=== PATIENT | female | born 1985 | race Caucasian/White ===

== ENCOUNTER 2016-05-14 14:18 | Emergency (ER) | payer OTHER ==
[~2016-05-14] VITALS: Ht 165.1 cm; Wt 76.2 kg
[~2016-05-14 14:18] MED LIST: AC500T PO; ACET-819 PO; AZIT-21 PO; AZTH250C; BENZ200C25 PO; DIPH25TA82; FLUO10CA19 PO; GUAN1TAB21; MECL-124 PO; MINO50CA3; OMEP-10 PO; PREN1TAB39 PO
[2016-05-14] MEDS ORDERED: LIDOCAINE/EPI 1%-1:100,000 (XYLOCAINE) 20ML INJ ONE (15:00)
[2016-05-14] MEDS ORDERED: TETANUS,DIPTH,PERTUSS P/F (BOOSTRIX) 0.5 ML VIAL IM ONE (15:00)
--- NOTE | 2016-05-14 16:11 | ED General ---
ED General Template History Present Illness This pleasant 30-year-old young lady presents to the emergency room with a left ankle laceration. She caught her foot on the bottom corner of a freezer door which pushed the top of her shoe down and lacerated the posterior lateral edge of her foot/ankle. Laceration is fairly deep through the subcutaneous tissue and fascia layer. Bleeding is controlled by the time of arrival. Initial Time/Exam Patient 14:40 Allergy/Medications Allergies: Coded Allergies: Dextrose (Unverified Allergy, Mild, 07/27/08) Cefotaxime (Verified Allergy, Unknown, 08/26/06) Azithromycin (Zithromax Tab) 250 Mg Tab #6 0 PO Z-ASHISH 2 Tabs 1st day (now), 1 Tab daily Prescribed by: FELIPE LOWRY on 03/20/14346 Benzonatate (Benzonatate) 200 Mg Capsule #14 1 EACH PO TID PRN Prescribed by: FELIPE LOWRY on 03/20/14346 Fluoxetine Hcl (Fluoxetine Hcl) 10 Mg Capsule Unknown Dose PO DAILY (Reported) Review Of Systems Review of systems is negative except for skin and neurologic systems. Tendon function intact. There is a 7 cm laceration on the posterior lateral edge of the foot/ankle just lateral to the Achilles tendon. There is an area of numbness just adjacent to the laceration. PMH Past Medical Hx No contributing past medical history Physicial Exam Gen.: Alert and oriented, no acute distress Respiratory: No respiratory distress Skin: 7 cm laceration through the subcutaneous and fascial layers on the posterior lateral left foot/ankle Musculoskeletal: Achilles tendon appears in intact with normal function. Vascular: Capillary refill of the distal foot normal. Neuro: Small patch of insensate skin near the laceration site. Distal sensation intact. Laceration Repair : Other Wound Location Posterior lateral left foot/ankle just lateral to the Achilles tendon Wound's Depth, Shape: linear, sub Q (and fascia) Wound Explored: clean Irrigated w/ Saline (ccs): 500 Betadine Prep?: Yes Anesthesia: Lidocaine w/ Epi Volume Anesthetic (ccs): 8 Suture: Prolene, Vicryl Suture Size: 4-0 Number of Sutures: 17 Layer Closure?: 3 Number Deep Layer Sutures: 6 Sterile Dressing Applied?: Yes Progress Skin was cleaned with alcohol. Wound was anesthetized with 8 mL of lidocaine with epinephrine. Wound was irrigated with 500 mL normal saline under pressure with an irrigation shield. Betadine prep was applied. Deep fascial layer of tissue was approximated with 3 sutures of 4-0 Vicryl. The subcutaneous layer of tissue was approximated with an additional 3 sutures of 4-0 Vicryl. The 7 cm skin laceration was approximated with 11 sutures of 4-0 Prolene in an interrupted fashion. Patient tolerated the procedure very well. Progress/Results/Core Measures Results/Orders My Orders Orders-LÓPEZ BOURNE MD Lidocaine/Epi 1% 1:100,000 (Xylocaine /E (05/14/16 15:00) Dipht,Pertuss(Acell),Tet Adult (Boostrix (05/14/16 15:00) Sulfamethoxazole/Trimet Ds Tab (Bactrim (05/14/16 16:15) Medications Given in ED Current Medications Medications Dose Ordered Sig/Morris Route Start Time Stop Time Status Last Admin Dose Admin Diphtheria/ Tetanus/Acell Pertussis 0.5 ml ONCE ONCE IM 05/14/16 15:00 05/14/16 15:01 DC 05/14/16 15:08 0.5 ML Lidocaine/ Epinephrine 20 ml ONCE ONCE INJ 05/14/16 15:00 05/14/16 15:01 DC 05/14/16 15:40 8 ML Trimethoprim/ Sulfamethoxazole 2 ea ONCE ONCE PO 05/14/16 16:15 05/14/16 16:16 DC 05/14/16 16:23 2 EA Vital Signs/I&O Vital Sign - Last 12Hours 05/14/16 05/14/16 14:32 16:26 Temp 99.7 99.7 Pulse 110 110 Resp 18 18 B/P 124/77 Pulse Ox 100 100 O2 Delivery Room Air Blood Pressure Mean: 93 Progress Note : Progress Note See procedure note for laceration repair. Patient was given Bactrim DS quantity 2 for infection prophylaxis. Sterile dressing was applied with antibiotic ointment. Occupational health paperwork was completed. I suggested patient not work for 2 days to allow initial healing since her job requires being on foot and walking. Departure Impression Impression: Primary Impression: Laceration of ankle, complicated Qualified Code: S91.012A - Laceration without foreign body, left ankle, initial encounter Disposition: HOME, SELF-CARE Condition: Improved Departure-Patient Inst. Decision time for Depature: 15:30 Referrals: [facility] (PCP/Family) Primary Care Physician Patient Instructions: Laceration Repair With Stitches (DC) Add. Discharge Instructions: Change the dressing daily. For the first couple of days apply antibiotic ointment to prevent the wound from sticking. You may use the Telfa nonstick dressing over the wound followed by gauze and Michael wrap. Elevate the wound to the level of your heart as much as possible for the first 2 days. Monitor the wound for signs of infection such as increasing swelling, increasing redness, increasing pain, fever, and puslike drainage. Return to care promptly if you notice these symptoms. You may use ibuprofen up to 600 mg every 6 hours as needed for pain. Add Tylenol up to 1000 g every 6 hours as needed for additional pain relief. Return occupational health or the ER in 10 days to have the sutures removed. Keep the wound covered at work. Avoid direct mechanical irritation of the sutures. You may shower as usual but avoid submersion until sutures are out. Do not scrub directly over the sutures. You may return to the emergency room to have the sutures removed. All discharge instructions reviewed with patient and/or family. Voiced understanding. LÓPEZ BOURNE MD May 14, 2016 16:11
[2016-05-14] MEDS ORDERED: TRIM/SULFAMETH 160/800 (SEPTRA DS) TAB PO ONE (16:15)
[2016-05-14 16:26] VITALS: BP 120/76
== END 2016-05-14 16:26 | disposition home or self-care (01) ==
LOC: EDUNIT# 14:18 → ER 14:21
DX: S91.012A Laceration without foreign body, left ankle, initial encounter (principal); W22.09XA Striking against other stationary object, initial encounter; Y92.009 Unspecified place in unspecified non-institutional (private) residence as the place of occurrence of the external cause; Y99.8 Other external cause status
CPT/HCPCS: 12032; 90471; 90715

== ENCOUNTER → 2016-10-07 | Outpatient (CLI) | payer MEDICAID ==
--- NOTE | 2016-10-07 11:03 | Diagnostic Imaging Report ---
First trimester OB ultrasound. INDICATION: Dating. FINDINGS: There is a normal-appearing single intrauterine . An embryo is seen with cardiac activity at 158 beats per minute. The crown-rump length is at 12 weeks and 6 days. FLO is 04/15/17. IMPRESSION: Live single intrauterine . Dictated by: Dictated on workstation # [id number]
== END ==
LOC: RAD 10:30
PROVIDERS: ATTEND Family Medicine
DX: Z36 Encounter for antenatal screening of mother (principal); Z3A.12 12 weeks gestation of pregnancy
CPT/HCPCS: 76801

== ENCOUNTER → 2016-11-20 | Outpatient (CLI) | payer MEDICAID ==
--- NOTE | 2016-11-21 11:48 | Diagnostic Imaging Report ---
INDICATION: survey. TECHNIQUE: Multiple real-time grayscale images were obtained over the gravid uterus. COMPARISON: 10/07/2016 FINDINGS: The heart rate is 136 beats per minute. The placenta is posterior. No placenta previa. The cervix is 4.4 cm in length and is closed. The lateral ventricles appear normal in size. The cerebellum and cisterna magna are not well seen. The bladder is not seen. The four-chamber view appears unremarkable. The stomach and cord insertion and the kidneys appear unremarkable. The spine is not well seen due to position. The lower spine is well seen however. Biometrical measurements are as follows: Biparietal 4.34 cm, age 19 weeks 1 days. Head circumference 16.43 cm, age 19 weeks 2 days. Abdominal circumference 14.52 cm, age 19 weeks 6 days. Femur length 2.9 cm, age 19 weeks 2 days. Sonographic estimate age: 19 weeks 3 days. Sonographic estimated date of delivery: 04/13/17. Estimated Weight: 269 gm (+/- 43 gm). LMP percentile: 67%. heart rate: 136 beats per minute. number: 1 of 1. IMPRESSION: Incomplete survey due to position with reevaluation of the cerebellum and cisterna magna, urinary bladder, three-vessel cord, and the spine is recommended within 2 weeks. Dictated by: Dictated on workstation # [id number]
== END ==
LOC: RAD 17:30
PROVIDERS: ATTEND Family Medicine
DX: Z36 Encounter for antenatal screening of mother; Z3A.00 Weeks of gestation of pregnancy not specified
CPT/HCPCS: 76805

== ENCOUNTER → 2016-12-03 | Outpatient (CLI) | payer MEDICAID ==
--- NOTE | 2016-12-04 08:36 | Diagnostic Imaging Report ---
INDICATION: Followup. COMPARISON: 11/20/2016. TECHNIQUE: Multiple Real-time grayscale images were obtained over the gravid uterus. FINDINGS: The cervix is nondilated measuring 3.8 cm. The devlin gestation is in breech position. The amniotic fluid volume is within normal limits. The posterior placenta is low lying without abruption. The intracranial structures on followup have an unremarkable appearance. The three-vessel cord is confirmed; however, its insertion is not well visualized. The spine has an unremarkable appearance at followup. The urinary bladder is now identified. IMPRESSION: Breech positioned devlin viable IUP. Nondilated 3.8 cm length cervix. Low-lying placenta which is 2 cm separable from the os without alexsandra previa. No abruption. The anatomical structures not evaluated on the prior exam are shown to be unremarkable today; however, the 3 vessel cord insertion could not be clearly defined on a technical basis. Dictated by: Dictated on workstation # [id number]
== END ==
LOC: RAD 16:38
PROVIDERS: ATTEND Family Medicine
DX: Z3A.00 Weeks of gestation of pregnancy not specified; O32.1XX0 Maternal care for breech presentation, not applicable or unspecified
CPT/HCPCS: 76816

== ENCOUNTER 2017-01-12 19:07 | Emergency (ER) | payer MEDICAID ==
[~2017-01-12] VITALS: Ht 162.6 cm; Wt 81.2 kg
--- OUTSIDE RECORDS SUMMARY | 2017-01-12 19:23 | XMS REPORT ---
Author Author SHIRA MENDEZ [facility] Address [address] [place] [address] Care Team Providers Care Fabric Worker Leader Name Role Phone SHIRA MENDEZ Unavailable PROBLEMS Type Condition ICD9-CM Code [id number] Code Onset Dates Condition Status SNOMED Code Problem Anxiety F41.9 Active 30117990 Problem Seasonal allergic rhinitis due to pollen J30.1 Active 79320152 Problem Prediabetes R73.09 Active 9719165 Problem Mixed hyperlipidemia E78.2 Active 795177681 ALLERGIES Unknown Allergies SOCIAL HISTORY No smoking Hx information available PLAN OF CARE VITAL SIGNS MEDICATIONS Unknown Medications RESULTS Name Result Date Reference Range LIPID PANEL 2016-03-28 Cholesterol, Total 155 100-199 Triglycerides 38 0-149 HDL Cholesterol 65 >39 VLDL Cholesterol Hill 8 5-40 LDL Cholesterol Calc 82 0-99 Comment: PROCEDURES Procedure Date Ordered Related Diagnosis Body Site LIPID PANEL Mar 28, 2016 VENDMITRIY, ROUTINE* Mar 28, 2016 IMMUNIZATIONS No Known Immunizations
--- OUTSIDE RECORDS SUMMARY | 2017-01-12 19:23 | XMS REPORT ---
Author Author SHIRA MENDEZ [facility] eClinicalWorks Address Unknown Phone Unavailable Care Team Providers Care Rod Buster Name Role Phone SHIRA MENDEZ CP Unavailable Allergies No Known Allergies Problems Problem Type Condition Code Onset Dates Condition Status Problem Alcohol dependence F10.20 Active Problem Mixed hyperlipidemia E78.2 Active Problem Wheezing R06.2 Active Problem Pre-diabetes R73.09 Active Problem Attention deficit disorder without hyperactivity F90.0 Active Problem Generalized anxiety disorder F41.1 Active Problem Depressive disorder F32.9 Active Problem Panic disorder without agoraphobia F41.0 Active Medications No Known Medications Results No Known Results Summary Purpose eClinicalWorks Submission
--- OUTSIDE RECORDS SUMMARY | 2017-01-12 19:23 | XMS REPORT ---
Author KEERTHI Cisneros [facility] eClinicalWorks Address Unknown Phone Unavailable Care Team Providers Care Slackline Operator Name Role Phone KEERTHI BENNETT CP Unavailable Allergies, Adverse Reactions, Alerts Substance Reaction Event Type Ranitidine HCl Info Not Available Drug Allergy Minocycline HCl Info Not Available Drug Allergy Claforan Info Not Available Drug Allergy Problems Problem Type Condition Code Onset Dates Condition Status Problem Overweight 278.02 Active Problem Counseling on other sexually transmitted diseases V65.45 Active Problem Dietary surveillance and counseling V65.3 Active Problem Wheezing 786.07 Active Problem Depressive disorder, not elsewhere classified 311 Active Problem Leukorrhea, not specified as infective 623.5 Active Problem Generalized anxiety disorder 300.02 Active Problem Unspecified breast screening V76.10 Active Problem Panic disorder without agoraphobia 300.01 Active Problem Attention deficit disorder of childhood with hyperactivity 314.01 Active Assessment Bronchitis J40 Active Problem Screening for unspecified malignant neoplasm V76.9 Active Problem Other general counseling and advice for contraceptive management V25.09 Active Problem Unspecified contraceptive management V25.9 Active Problem Other and unspecified alcohol dependence, unspecified drunkenness 303.90 Active Problem Other malaise and fatigue 780.79 Active Problem Routine gynecological examination V72.31 Active Problem Screening examination for venereal disease V74.5 Active Medications Medication Code System Code Instructions Start Date End Date Status Dosage Doxycycline Hyclate [facility] [address]-37 100 MG Orally every 12 hrs Dec 25, 2014 Jan 04, 2015 1 tablet Sudafed [facility] [address]-25 30 MG Orally every 6 hrs Dec 25, 2014 1 tablet as needed Promethazine-Codeine [facility] [address]-04 6.25-10 MG/5ML Orally q 4h Dec 19, 2014 10 ml Procedures Procedure Coding System Code Date Office Visit, Est Pt., Level 3 CPT-4 39385 Dec 25, 2014 Vital Signs Date/Time: Dec 25, 2014 Temperature 97.3 F Weight 173.3 lbs Height 64 in BMI 29.74 Index Blood Pressure Diastolic 76 mmHg Blood Pressure Systolic 122 mmHg Cardiac Monitoring Heart Rate 96 bpm Results No Known Results Summary Purpose eClinicalWorks Submission
--- OUTSIDE RECORDS SUMMARY | 2017-01-12 19:24 | XMS REPORT ---
Author Author SHIRA MENDEZ Organization eClinical[employer] Address Unknown Phone Unavailable Care Team Providers Care Public Health Staff Nurse Name Role Phone SHIRA MENDEZ CP Unavailable Allergies No Known Allergies Problems Problem Type Condition Code Onset Dates Condition Status Problem Generalized anxiety disorder F41.1 Active Problem Panic disorder without agoraphobia F41.0 Active Problem Attention deficit disorder without hyperactivity F90.0 Active Problem Alcohol dependence F10.20 Active Problem Unprotected sex Z72.51 Active Problem Prediabetes R73.09 Active Problem Staph infection B95.8 Active Problem Wheezing R06.2 Active Problem Depressive disorder F32.9 Active Problem 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
--- OUTSIDE RECORDS SUMMARY | 2017-01-12 19:24 | XMS REPORT ---
Author Author SHIRA MENDEZ [facility] Address [address] [place] [address] Care Team Providers Care Auto Parker Name Role Phone SHIRA MENDEZ Unavailable PROBLEMS Type Condition ICD9-CM Code [id number] Code Onset Dates Condition Status SNOMED Code Problem Depressive disorder F32.9 Active 98464666 Problem Mixed hyperlipidemia E78.2 Active 640534697 Problem Wheezing R06.2 Active 11311400 Problem Alcohol dependence F10.20 Active 49882689 Problem Generalized anxiety disorder F41.1 Active 623970292 Problem Attention deficit disorder without hyperactivity F90.0 Active 94429043 Problem Panic disorder without agoraphobia F41.0 Active 17840685 Problem Chronic infection B99.9 Active 665691788 Problem Klebsiella infect B96.1 Active 306733740 Problem Prediabetes R73.09 Active 7160754 Problem 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
--- OUTSIDE RECORDS SUMMARY | 2017-01-12 19:24 | XMS REPORT ---
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, drug or chemical induced, 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 Active 141458933 Problem Staph infection B95.8 Active Problem Unprotected sex Z72.51 Active 6909218 Problem Alcohol dependence F10.20 Active 57711507 Problem Generalized anxiety disorder F41.1 Active 868829179 Problem Attention deficit disorder without hyperactivity F90.0 Active 26481742 Assessment Allergic rhinitis, unspecified allergic rhinitis trigger, unspecified rhinitis seasonality J30.9 Oct, Active 22815920 Problem Panic disorder without agoraphobia F41.0 Active 55404839 ALLERGIES Substance Reaction Event Type Date Status Minocycline HCl Unknown Drug Allergy Oct, Active Claforan Unknown Drug Allergy Oct, Active SOCIAL HISTORY No smoking Hx information available PLAN OF CARE VITAL SIGNS Height 64 in 2015-11-22 Weight 160.5 lbs 2015-11-22 Heart Rate 96 bpm 2015-11-22 Respiratory Rate 18 2015-11-22 BMI 27.55 kg/m2 2015-11-22 Blood pressure systolic 118 mmHg 2015-11-22 Blood pressure diastolic 74 mmHg 2015-11-22 MEDICATIONS Medication Instructions Dosage Frequency Start Date End Date Duration Status PredniSONE 20 mg Orally Once a day 2 tablets 24h Oct, Oct, 05 days Active Triamcinolone Acetonide 0.1 % Externally Twice a day 1 application to affected area 12h Oct, Active Diethylpropion HCl ER 75 MG Orally Once a day 1 tablet 24h Active RESULTS No Results PROCEDURES Procedure Date Ordered Related Diagnosis Body Site Office Visit, Est Pt., Level 3 Nov 22, 2015 IMMUNIZATIONS No Known Immunizations
--- OUTSIDE RECORDS SUMMARY | 2017-01-12 19:24 | XMS REPORT ---
Author Author PALOMA VELIZ [facility] eClinicalWorks Address Unknown Phone Unavailable Care Team Providers Care Hand Roller Name Role Phone PALOMA VELIZ CP Unavailable Allergies, Adverse Reactions, Alerts Substance [...] of childhood with hyperactivity 314.01 Active Assessment Sore throat J02.9 Active Problem Screening for unspecified malignant neoplasm V76.9 Active Assessment Acute streptococcal pharyngitis J02.0 Active Problem Other general counseling and advice for contraceptive management V25.09 Active Problem Unspecified contraceptive management V25.9 Active Problem Other and unspecified alcohol dependence, unspecified drunkenness 303.90 Active Problem Other malaise and fatigue 780.79 Active Problem Routine gynecological examination V72.31 Active Problem Screening examination for venereal disease V74.5 Active Medications Medication Code System Code Instructions Start Date End Date Status Dosage Ibuprofen [facility] [address]-98 600 MG Orally Three times a day 1 tablet Penicillin V Potassium [facility] [address]-66 500 MG Orally 2 times a day MarMar 13, 2015 1 tablet Procedures Procedure Coding System Code Date Office Visit, Est Pt., Level 3 CPT-4 53808 Mar 03, 2015 STREP A ASSAY W/OPTIC CPT-4 32876 Mar 03, 2015 Vital Signs Date/Time: Mar 03, 2015 Temperature 99.8 F Weight 169.0 lbs Height 64 in BMI 29.01 Index Blood Pressure Diastolic 74 mmHg Blood Pressure Systolic 110 mmHg Cardiac Monitoring Heart Rate 112 bpm Results Name Result Date Reference Range Unit Abnormality Flag STREP A (IN HOUSE) ----STREP A positive [id number] ----Control + [id number] ----Lot # [id number] ----Exp date 20150303 Summary Purpose eClinicalWorks Submission
--- OUTSIDE RECORDS SUMMARY | 2017-01-12 19:24 | XMS REPORT ---
Author Author SHIRA MENDEZ Organization eClinicalWorks Address Unknown Phone Unavailable Care Team Providers Care Teaching Dietitian Name Role Phone SHIRA MENDEZ CP Unavailable [...]
--- OUTSIDE RECORDS SUMMARY | 2017-01-12 19:24 | XMS REPORT ---
Author Author SHIRA MENDEZ [facility] Address [address] [place] [address] Care Team Providers Care Drafter Castings Name Role Phone VANESSA SHIRA Unavailable PROBLEMS Type Condition ICD9-CM Code [id number] Code Onset Dates Condition Status SNOMED Code Problem Anxiety F41.9 Active 40340915 Problem Seasonal allergic rhinitis due to pollen J30.1 Active 78370285 Problem Prediabetes R73.09 Active 2754128 Problem Mixed hyperlipidemia E78.2 Active 431800027 ALLERGIES Substance Reaction Event Type Date Status Minocycline HCl Unknown Drug Allergy Apr, Active Claforan Unknown Drug Allergy Apr, Active SOCIAL HISTORY Never Assessed PLAN OF CARE Activity Details Follow Up 3-4 weeks Reason:[facility] VITAL SIGNS Height 64 in 2016-05-20 Weight 168 lbs 2016-05-20 Temperature 99.4 degrees Fahrenheit 2016-05-20 Heart Rate 70 bpm 2016-05-20 Respiratory Rate 20 2016-05-20 BMI 28.83 kg/m2 2016-05-20 Blood pressure systolic 132 mmHg 2016-05-20 Blood pressure diastolic 70 mmHg 2016-05-20 MEDICATIONS Medication Instructions Dosage Frequency Start Date End Date Duration Status Ibuprofen 600 MG Orally Three times a day 1 tablet 8h Active Fluoxetine HCl 10 mg Orally Once a day 1 capsule in the morning 24h Apr 30 day(s) Active RESULTS Name Result Date Reference Range TEST, URINE (IN HOUSE) 2016-05-20 RESULTS negative Lot # [id number] Control + Exp date 06/17 Xray : Abdomen 2v (Upright, KUB) - IN HOUSE 2016-05-20 PROCEDURES Procedure Date Ordered Result Body Site EKG, TRACING (IN-HOUSE) 2016-05-20 UNREMARKABLE URINE TEST May 20, 2016 ELECTROCARDIOGRAM, TRACING May 20, 2016 X-RAY EXAM OF ABDOMEN May 20, 2016 IMMUNIZATIONS No Known Immunizations MEDICAL (GENERAL) HISTORY Type Description Date Medical History attention deficit hyperactivity disorder Medical History Tourette's syndrome Medical History borderline personality disorder Medical History Depressive disorder Medical History Panic disorder without agoraphobia Medical History DUE APR 2017 Surgical History sinus surgery Surgical History orthopedic surgery (L great toe) Hospitalization History surgeries
--- OUTSIDE RECORDS SUMMARY | 2017-01-12 19:24 | XMS REPORT ---
Author Author BRAD ROSADO [facility] eClinicalWorks Address Unknown Phone Unavailable Care Team Providers Care Tea Blender Name Role Phone BRAD ROSADO Unavailable Allergies, Adverse Reactions, Alerts Substance Reaction Event Type Ranitidine HCl Info Not Available Drug Allergy Minocycline HCl Info Not Available Drug Allergy Claforan Info Not Available Drug Allergy Problems Problem Type Condition Code Onset Dates Condition Status Assessment Family history of diabetes mellitus Z83.3 Active Assessment Well woman exam Z01.419 Active Assessment BMI 29.0-29.9,adult Z68.29 Active Problem Depressive disorder F32.9 Active Problem Panic disorder without agoraphobia F41.0 Active Problem Wheezing R06.2 Active Problem Alcohol dependence F10.20 Active Assessment Encounter for screening for malignant neoplasm of cervix Z12.4 Active Problem Attention deficit disorder without hyperactivity F90.0 Active Problem Generalized anxiety disorder F41.1 Active Assessment Anxiety disorder, unspecified F41.9 Active Assessment Fibrocystic breast, left N60.12 Active Assessment Unprotected sexual intercourse Z72.51 Active Assessment Fibrocystic breast, right N60.11 Active Assessment Encounter for counseling regarding contraception Z30.9 Active Assessment Vaginal discharge N89.8 Active Medications No Known Medications Procedures Procedure Coding System Code Date CHORIONIC GONADOTROPIN TEST CPT-4 44235 Mar 14, 2015 Preventive Care Est Pt. Age 18-39 CPT-4 43152 Mar 14, 2015 SPECIMEN HANDLING CPT-4 78350 Mar 14, 2015 VENIPUNCT, ROUTINE* CPT-4 97585 Mar 14, 2015 Vital Signs Date/Time: Mar 14, 2015 Temperature 97.4 F Weight 172.3 lbs Height 64 in BMI 29.57 Index Blood Pressure Diastolic 74 mmHg Blood Pressure Systolic 117 mmHg Cardiac Monitoring Heart Rate 90 bpm Results Name Result Date Reference Range Unit Abnormality Flag PDF Report ----PDF Report1 LCLS [id number] ROUTINE VENIPUNCTURE HCG, QUANTITATIVE ----hCG,Beta Subunit,Qnt,Serum <1 [id number] mIU/mL Summary Purpose eClinicalWorks Submission
--- OUTSIDE RECORDS SUMMARY | 2017-01-12 19:24 | XMS REPORT ---
Author Author PALOMA VELIZ [facility] eClinicalWorks Address Unknown Phone Unavailable Care Team Providers Care Slip Injector And Applicator Name Role Phone PALOMA VELIZ CP Unavailable Allergies, Adverse Reactions, Alerts Substance Reaction Event Type Ranitidine HCl Info Not Available Drug Allergy Minocycline HCl Info Not Available Drug Allergy Claforan Info Not Available Drug Allergy Problems Problem Type Condition Code Onset Dates Condition Status Problem Depressive disorder F32.9 Active Problem Panic disorder without agoraphobia F41.0 Active Problem Wheezing R06.2 Active Problem Alcohol dependence F10.20 Active Assessment Pharyngitis J02.9 Active Problem Attention deficit disorder without hyperactivity F90.0 Active Problem Generalized anxiety disorder F41.1 Active Medications Medication Code System Code Instructions Start Date End Date Status Dosage Sprintec 28 [facility] [address]-91 0.25-35 MG-MCG Orally Once a day Mar 15, 2015 1 tablet Augmentin [facility] [address]-06 875-125 MG Orally every 12 hrs Mar 17, 2015 Mar 27, 2015 1 tablet Procedures Procedure Coding System Code Date Office Visit, Est Pt., Level 3 CPT-4 74991 Mar 17, 2015 STREP A ASSAY W/OPTIC CPT-4 28827 Mar 17, 2015 Vital Signs Date/Time: Mar 17, 2015 Temperature 98.8 F Weight 169.2 lbs Height 64 in BMI 29.04 Index Blood Pressure Diastolic 78 mmHg Blood Pressure Systolic 108 mmHg Cardiac Monitoring Heart Rate 102 bpm Results Name Result Date Reference Range Unit Abnormality Flag STREP A (IN HOUSE) ----STREP A positive [id number] ----Control + [id number] ----Lot # [id number] ----Exp date [id number] Summary Purpose eClinicalWorks Submission
--- OUTSIDE RECORDS SUMMARY | 2017-01-12 19:26 | XMS REPORT ---
Author Author SHIRA MENDEZ [facility] [place] eClinicalWorks Address Unknown Phone Unavailable Care Team Providers Care Vegetable Washing Machine Operator Name Role Phone SHIRA MENDEZ CP Unavailable Allergies, Adverse Reactions, Alerts Substance Reaction Event Type Ranitidine HCl Info Not Available Drug Allergy Minocycline HCl Info Not Available Drug Allergy Claforan Info Not Available Drug Allergy Problems Problem Type Condition Code Onset Dates Condition Status Problem Generalized anxiety disorder F41.1 Active Problem Panic disorder without agoraphobia F41.0 Active Problem Attention deficit disorder without hyperactivity F90.0 Active Problem Unprotected sex Z72.51 Active Problem Prediabetes R73.09 Active Problem Staph infection B95.8 Active Problem Wheezing R06.2 Active Problem Depressive disorder F32.9 Active Problem 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, drug or chemical induced, 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 Active Problem Mixed hyperlipidemia E78.2 Active Assessment Unprotected sex Z72.51 Active Assessment Prediabetes R73.09 Active Assessment Staph infection B95.8 Active Problem Alcohol dependence F10.20 Active Medications Medication Code System Code Instructions Start Date End Date Status Dosage Levaquin [facility] [address]-45 500 MG Orally Once a day June 20, 2015 June 30, 2015 1 tablet Ibuprofen [facility] [address]-81 600 MG Orally Three times a day 1 tablet Sprintec 28 [facility] [address]-87 0.25-35 MG-MCG Orally Once a day Mar 15, 2015 1 tablet Bactroban [facility] [address]-89 2 % Externally Three times a day July 10, 2015 1 application to affected area Procedures Procedure Coding System Code Date CHORIONIC GONADOTROPIN ASSAY CPT-4 41374 June 20, 2015 CULTURE, BACTERIA, OTHER CPT-4 98713 June 20, 2015 GLYCATED HEMOGLOBIN TEST CPT-4 99740 June 20, 2015 VENIPUNCT, ROUTINE* CPT-4 61322 June 20, 2015 Office Visit, Est Pt., Level 3 CPT-4 82557 June 20, 2015 Vital Signs Date/Time: June 20, 2015 Temperature 98.7 F Weight 175.0 lbs Height 64 in BMI 30.04 Index Blood Pressure Diastolic 77 mmHg Blood Pressure Systolic 119 mmHg Cardiac Monitoring Heart Rate 77 bpm Results Name Result Date Reference Range Unit Abnormality Flag A1C (IN HOUSE) ----Exp date [id number] ----A1C IN HOUSE 5.2 20150620 4.3 - 5.6 % ----Lot [id number] ROUTINE VENIPUNCTURE TEST, SERUM (QUAL) ----hCG,Beta Subunit,Qual,Serum Negative [id number] Negative <6 mIU/mL Summary Purpose eClinicalWorks Submission
--- OUTSIDE RECORDS SUMMARY | 2017-01-12 19:26 | XMS REPORT ---
Author Author BRAD ROSADO [facility] eClinicalWorks Address Unknown Phone Unavailable Care Team Providers Care Washing Machine Installer Name Role Phone BRAD ROSADO Unavailable Allergies No Known Allergies Problems Problem Type Condition Code Onset Dates Condition Status Assessment BMI 29.0-29.9,adult Z68.29 Active Assessment Family history of diabetes mellitus Z83.3 Active Problem Depressive disorder F32.9 Active Problem Panic disorder without agoraphobia F41.0 Active Problem Wheezing R06.2 Active Problem Alcohol dependence F10.20 Active Assessment Well woman exam Z01.419 Active Problem Attention deficit disorder without hyperactivity F90.0 Active Problem Generalized anxiety disorder F41.1 Active Medications No Known Medications Procedures Procedure Coding System Code Date COMPLETE CBC W/AUTO DIFF WBC CPT-4 71269 Mar 15, 2015 LIPID PANEL CPT-4 53921 Mar 15, 2015 GLYCATED HEMOGLOBIN TEST CPT-4 13953 Mar 15, 2015 VENIPUNCT, ROUTINE* CPT-4 44233 Mar 15, 2015 COMPREHEN METABOLIC PANEL CPT-4 42619 Mar 15, 2015 Results Name Result Date Reference Range Unit Abnormality Flag ROUTINE VENIPUNCTURE Summary Purpose eClinicalWorks Submission
--- OUTSIDE RECORDS SUMMARY | 2017-01-12 19:26 | XMS REPORT ---
Author Author SHIRA MENDEZ [facility] Address [address] [place] [address] Care Team Providers Care Apple Picking Supervisor Name Role Phone SHIRA MENDEZ Unavailable PROBLEMS Type Condition ICD9-CM Code [id number] Code Onset Dates Condition Status SNOMED Code Problem Anxiety F41.9 Active 51726473 Problem Seasonal allergic rhinitis due to pollen J30.1 Active 12364810 Problem Prediabetes R73.09 Active 7493757 Problem Mixed hyperlipidemia E78.2 Active 924880064 ALLERGIES Substance Reaction Event Type Date Status Minocycline HCl Unknown Drug Allergy Mar, Active Claforan Unknown Drug Allergy Mar, Active SOCIAL HISTORY No smoking Hx information available PLAN OF CARE Activity Details Follow Up pending lab Reason: VITAL SIGNS Height 64 in 2016-03-27 Weight 168 lbs 2016-03-27 Temperature 99.0 degrees Fahrenheit 2016-03-27 Heart Rate 76 bpm 2016-03-27 Respiratory Rate 18 2016-03-27 BMI 28.83 kg/m2 2016-03-27 Blood pressure systolic 118 mmHg 2016-03-27 Blood pressure diastolic 68 mmHg 2016-03-27 MEDICATIONS Medication Instructions Dosage Frequency Start Date End Date Duration Status Ibuprofen 600 MG Orally Three times a day 1 tablet 8h Active RESULTS Name Result Date Reference Range A1C (IN HOUSE) 2016-03-27 A1C IN HOUSE 4.9 4.3 - 5.6 % Previous A1c 5.2 Lot [id number] Exp date TEST, SERUM (QUAL) 2016-03-27 hCG,Beta Subunit,Qual,Serum Negative Negative <6 TSH 2016-03-27 TSH 1.150 0.450-4.500 CBC 2016-03-27 WBC 8.8 3.4-10.8 RBC 4.89 3.77-5.28 Hemoglobin 13.8 11.1-15.9 Hematocrit 42.3 34.0-46.6 MCV 87 79-97 MCH 28.2 26.6-33.0 MCHC 32.6 31.5-35.7 RDW 13.2 12.3-15.4 Platelets 282 150-379 Neutrophils 60 Lymphs 30 Monocytes 8 Eos 1 Basos 1 Neutrophils (Absolute) 5.3 1.4-7.0 Lymphs (Absolute) 2.6 0.7-3.1 Monocytes(Absolute) 0.7 0.1-0.9 Eos (Absolute) 0.1 0.0-0.4 Baso (Absolute) 0.0 0.0-0.2 Immature Granulocytes 0 Immature Grans (Abs) 0.0 0.0-0.1 CMP 2016-03-27 Glucose, Serum 77 65-99 BUN 14 6-20 Creatinine, Serum 0.63 0.57-1.00 eGFR If NonAfricn Am 122 >59 eGFR If Africn Am 140 >59 BUN/Creatinine Ratio 22 8-20 Sodium, Serum 140 134-144 Potassium, Serum 4.6 3.5-5.2 Chloride, Serum 102 96-106 Carbon Dioxide, Total 22 18-29 Calcium, Serum 9.1 8.7-10.2 Protein, Total, Serum 7.3 6.0-8.5 Albumin, Serum 4.4 3.5-5.5 Globulin, Total 2.9 1.5-4.5 A/G Ratio 1.5 1.1-2.5 Bilirubin, Total <0.2 0.0-1.2 Alkaline Phosphatase, S 77 39-117 AST (SGOT) 21 0-40 ALT (SGPT) 13 0-32 TEST, URINE (IN HOUSE) 2016-03-27 RESULTS Negative Lot # [id number] Control + Exp date PROCEDURES Procedure Date Ordered Related Diagnosis Body Site URINE TEST Mar 27, 2016 ASSAY THYROID STIM HORMONE Mar 27, 2016 Office Visit, Est Pt., Level 3 Mar 27, 2016 VENIPUNCT, ROUTINE* Mar 27, 2016 GLYCATED HEMOGLOBIN TEST Mar 27, 2016 COMPREHEN METABOLIC PANEL Mar 27, 2016 CHORIONIC GONADOTROPIN ASSAY Mar 27, 2016 COMPLETE CBC W/AUTO DIFF WBC Mar 27, 2016 IMMUNIZATIONS No Known Immunizations
--- OUTSIDE RECORDS SUMMARY | 2017-01-12 19:26 | XMS REPORT ---
Author Author BRAD ROSADO [facility] eClinicalWorks Address Unknown Phone Unavailable Care Team Providers Care Marketing Operations Assistant Name Role Phone BRAD ROSADO Unavailable Allergies No Known Allergies Problems Problem Type Condition Code Onset Dates Condition Status Problem Depressive disorder F32.9 Active Problem Panic disorder without agoraphobia F41.0 Active Problem Wheezing R06.2 Active Problem Alcohol dependence F10.20 Active Assessment OCP (oral contraceptive pills) initiation Z30.011 Active Problem Attention deficit disorder without hyperactivity F90.0 Active Problem Generalized anxiety disorder F41.1 Active Medications Medication Code System Code Instructions Start Date End Date Status Dosage Sprintec 28 [facility] [address]-88 0.25-35 MG-MCG Orally Once a day Mar 15, 2015 1 tablet Results No Known Results Summary Purpose eClinicalWorks Submission
--- OUTSIDE RECORDS SUMMARY | 2017-01-12 19:26 | XMS REPORT ---
Author Author GEORGIE BARRERA [facility] eClinicalWorks Address Unknown Phone Unavailable Care Team Providers Care Caretaker Name Role Phone GEORGIE BARRERA CP Unavailable Allergies, Adverse Reactions, Alerts Substance [...] of childhood with hyperactivity 314.01 Active Assessment URI (upper respiratory infection) J06.9 Active Problem Screening for unspecified malignant neoplasm [...] Instructions Start Date End Date Status Dosage Promethazine-Codeine [facility] [address]-79 6.25-10 MG/5ML Orally q 4h Dec 19, 2014 10 ml Procedures Procedure Coding System Code Date Office Visit, Est Pt., Level 2 CPT-4 34753 Dec 19, 2014 Vital Signs Date/Time: Dec 19, 2014 Temperature 97.9 F Weight 168.9 lbs Height 64 in BMI 28.99 Index Blood Pressure Diastolic 74 mmHg Blood Pressure Systolic 126 mmHg Cardiac Monitoring Heart Rate 84 bpm Results No Known Results Summary Purpose eClinicalWorks Submission
--- OUTSIDE RECORDS SUMMARY | 2017-01-12 19:26 | XMS REPORT ---
Author Author SHIRA MENDEZ Organization eClinicalWorks Address Unknown Phone Unavailable Care Team Providers Care Rug Cleaner Name Role Phone SHIRA MENDEZ CP Unavailable Allergies, Adverse Reactions, Alerts Substance Reaction Event Type Ranitidine HCl Info Not Available Drug Allergy Minocycline HCl Info Not Available Drug Allergy Claforan Info Not Available Drug Allergy Problems Problem Type Condition Code Onset Dates Condition Status Problem Panic disorder without agoraphobia F41.0 Active Problem Wheezing R06.2 Active Problem Depressive disorder F32.9 Active Problem Klebsiella infect B96.1 Active Problem Staph infection B95.8 Active Problem Chronic infection B99.9 Active Problem 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, drug or chemical induced, 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 Active Problem Mixed hyperlipidemia E78.2 Active Problem Unprotected sex Z72.51 Active Problem Prediabetes R73.09 Active Assessment Overweight E66.3 Active Problem Alcohol dependence F10.20 Active Problem Generalized anxiety disorder F41.1 Active Problem Attention deficit disorder without hyperactivity F90.0 Active Medications Medication Code System Code Instructions Start Date End Date Status Dosage Gentak [facility] [address]-89 0.3 % Ophthalmic Twice a day July 03, 2015 1 application Ibuprofen [facility] [address]-15 600 MG Orally Three times a day 1 tablet Diethylpropion HCl ER [facility] [address]-01 75 MG Orally Once a day Oct 17, 2015 1 tablet Sprintec 28 [facility] [address]-15 0.25-35 MG-MCG Orally Once a day Mar 15, 2015 1 tablet Procedures Procedure Coding System Code Date Office Visit, Est Pt., Level 3 CPT-4 79911 Oct 17, 2015 Vital Signs Date/Time: Oct 17, 2015 Cardiac Monitoring Heart Rate 78 bpm Weight 173.0 lbs Height 64 in BMI 29.69 Index Blood Pressure Diastolic 76 mmHg Blood Pressure Systolic 120 mmHg Results No Known Results Summary Purpose eClinicalWorks Submission
--- OUTSIDE RECORDS SUMMARY | 2017-01-12 19:26 | XMS REPORT ---
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, drug or chemical induced, 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 Active 883007902 Problem Staph infection B95.8 Active Problem Unprotected sex Z72.51 Active 0915443 Problem Alcohol dependence F10.20 Active 45824441 Problem Generalized anxiety disorder F41.1 Active 395273268 Assessment Heartburn R12 14 Nov, 2015 Active 96094051 Problem Attention deficit disorder without hyperactivity F90.0 Active 42153130 Assessment Overweight E66.3 14 Nov, 2015 Active 494965554 Problem Panic disorder without agoraphobia F41.0 Active 64907218 ALLERGIES No Known Allergies SOCIAL HISTORY No smoking Hx information available PLAN OF CARE VITAL SIGNS Height 64 in 2015-11-14 Weight 163.5 lbs 2015-11-14 Heart Rate 92 bpm 2015-11-14 Respiratory Rate 18 2015-11-14 BMI 28.06 kg/m2 2015-11-14 Blood pressure systolic 118 mmHg 2015-11-14 Blood pressure diastolic 82 mmHg 2015-11-14 MEDICATIONS Medication Instructions Dosage Frequency Start Date End Date Duration Status Diethylpropion HCl ER 75 MG Orally Once a day 1 tablet 24h Active Gentak 0.3 % Ophthalmic Twice a day 1 application 12h June, Active Ibuprofen 600 MG Orally Three times a day 1 tablet 8h Active RESULTS No Results PROCEDURES Procedure Date Ordered Related Diagnosis Body Site Office Visit, Est Pt., Level 3 Nov 14, 2015 IMMUNIZATIONS No Known Immunizations
--- OUTSIDE RECORDS SUMMARY | 2017-01-12 19:28 | XMS REPORT ---
Author Author SHIRA MENDEZ Organization eClinicalWorks Address Unknown Phone Unavailable Care Team Providers Care Metal Window Frame Maker Name Role Phone SHIRA MENDEZ CP Unavailable Allergies, Adverse Reactions, Alerts Substance Reaction Event Type Minocycline HCl Info Not Available Drug Allergy [...] Z72.51 Active Problem Prediabetes R73.09 Active Assessment Nausea R11.0 Active Problem Alcohol dependence F10.20 Active Assessment Rash R21 Active Problem Generalized anxiety disorder F41.1 Active Assessment Overweight E66.3 Active Problem Attention deficit disorder without hyperactivity F90.0 Active Medications Medication Code System Code Instructions Start Date End Date Status Dosage Triamcinolone Acetonide [facility] [address]-67 0.1 % Externally Twice a day Nov 22, 2015 1 application to affected area Diethylpropion HCl ER [facility] [address]-22 75 MG Orally Once a day 1 tablet Triamcinolone Acetonide [facility] [address]-73 0.5 % Externally Twice a day Dec 12, 2015 1 application to affected area Procedures Procedure Coding System Code Date Office Visit, Est Pt., Level 4 CPT-4 08778 Dec 12, 2015 URINE TEST CPT-4 84400 Dec 12, 2015 Vital Signs Date/Time: Dec 12, 2015 Cardiac Monitoring Heart Rate 78 bpm Weight 159.0 lbs Height 64 in BMI 27.29 Index Blood Pressure Diastolic 70 mmHg Blood Pressure Systolic 108 mmHg Results No Known Results Summary Purpose eClinicalWorks Submission
--- OUTSIDE RECORDS SUMMARY | 2017-01-12 19:31 | XMS REPORT | Continuity of Care Document ---
Author Author [facility] Ctr of [facility] C[facility] of [facility] Address Unknown Phone Unavailable Allergies Active Description Code Type Severity Reaction Onset Reported/Identified Relationship to Patient Clinical Status Yes cefotaxime [id number] Drug Allergy Unknown N/A 08/26/2006 Yes Claforan Drug Allergy N/A N/A 05/22/2008 Yes minocycline Drug Allergy N/A N/A 05/22/2008 Yes Claforan Drug Allergy 05/22/2008 Yes minocycline Drug Allergy 05/22/2008 Yes ranitidine Drug Allergy N/A N/A 06/26/2008 Yes ranitidine Drug Allergy 06/26/2008 Yes dextrose [id number] Drug Allergy Mild N/A 07/27/2008 Medications Problems Date Dx Coded Attending Type Code Diagnosis Diagnosed By 10/18/2007 626.8 Other Disorders Of Menstruation And Other Abnormal Bleeding From Female Genital Tract 10/18/2007 V25.40 CONTRACEPTIVE SURVEILLANCE UNSPECIFIED 10/18/2007 WESTLEY LOZADA DO 626.8 Other Disorders Of Menstruation And Other Abnormal Bleeding From Female Genital Tract 10/18/2007 WESTLEY LOZADA DO V25.40 Contraceptive Surveillance Unspecified 10/18/2007 DAGO TUTTLE PSYD 626.8 Other Disorders Of Menstruation And Other Abnormal Bleeding From Female Genital Tract 10/18/2007 DAGO TUTTLE PSYD V25.40 Contraceptive Surveillance Unspecified 10/18/2007 626.8 Other Disorders Of Menstruation And Other Abnormal Bleeding From Female Genital Tract 10/18/2007 V25.40 Contraceptive Surveillance Unspecified 10/18/2007 JOSE TATE DO 626.8 Other Disorders Of Menstruation And Other Abnormal Bleeding From Female Genital Tract 10/18/2007 JOSE TATE DO V25.40 Contraceptive Surveillance Unspecified 10/18/2007 626.8 Other Disorders Of Menstruation And Other Abnormal Bleeding From Female Genital Tract 10/18/2007 V25.40 Contraceptive Surveillance Unspecified 10/18/2007 626.8 Other Disorders Of Menstruation And Other Abnormal Bleeding From Female Genital Tract 10/18/2007 V25.40 Contraceptive Surveillance Unspecified 10/18/2007 GEORGIE BARRERA MD 626.8 Other Disorders Of Menstruation And Other Abnormal Bleeding From Female Genital Tract 10/18/2007 GEORGIE BARRERA MD V25.40 Contraceptive Surveillance Unspecified 10/18/2007 JOSE RAUL JOHNSON LEONEL A 626.8 Other Disorders Of Menstruation And Other Abnormal Bleeding From Female Genital Tract 10/18/2007 JOSE RAUL JOHNSON LEONEL A V25.40 Contraceptive Surveillance Unspecified 10/18/2007 NATI SIERRA MD 626.8 Other Disorders Of Menstruation And Other Abnormal Bleeding From Female Genital Tract 10/18/2007 NATI SIERRA MD V25.40 Contraceptive Surveillance Unspecified 10/18/2007 JOSE RAUL JOHNSON LEONEL A 626.8 Other Disorders Of Menstruation And Other Abnormal Bleeding From Female Genital Tract 10/18/2007 JOSE RAUL JOHNSON LEONEL A V25.40 Contraceptive Surveillance Unspecified 10/18/2007 JOSE RAUL JOHNSON LEONEL A 626.8 Other Disorders Of Menstruation And Other Abnormal Bleeding From Female Genital Tract 10/18/2007 JOSE RAUL JOHNSON, LEONEL A V25.40 Contraceptive Surveillance Unspecified 10/18/2007 JOSE RAUL JOHNSON LEONEL A 626.8 Other Disorders Of Menstruation And Other Abnormal Bleeding From Female Genital Tract 10/18/2007 JOSE RAUL JOHNSON, LEONEL A V25.40 Contraceptive Surveillance Unspecified 10/18/2007 JOSE RAUL JOHNSON LEONEL A 626.8 Other Disorders Of Menstruation And Other Abnormal Bleeding From Female Genital Tract 10/18/2007 JOSE RAUL JOHNSON, LEONEL A V25.40 Contraceptive Surveillance Unspecified 10/18/2007 VANESSA JOHNSON SHIRA L 626.8 Other Disorders Of Menstruation And Other Abnormal Bleeding From Female Genital Tract 10/18/2007 VANESSA JOHNSON SHIRA L V25.40 Contraceptive Surveillance Unspecified 10/18/2007 WESTLEY LOZADA DO K 626.8 Other Disorders Of Menstruation And Other Abnormal Bleeding From Female Genital Tract 10/18/2007 WESTLEY LOZADA DO V25.40 Contraceptive Surveillance Unspecified 10/18/2007 DEJON SHAY APRN 626.8 Other Disorders Of Menstruation And Other Abnormal Bleeding From Female Genital Tract 10/18/2007 DEJON SHAY APRN R V25.40 Contraceptive Surveillance Unspecified 11/23/2007 473.9 Sinusitis (chronic) 11/23/2007 477.9 Rhinitis Allergic 11/23/2007 LOZADA DOPORTERA K 473.9 Sinusitis (chronic) 11/23/2007 LOZADA DOPORTERA K 477.9 Rhinitis Allergic 11/23/2007 DAGO TUTLTE PSYD ANN L 473.9 Sinusitis (chronic) 11/23/2007 DAGO TUTTLE PSYD ANN L 477.9 Rhinitis Allergic 11/23/2007 473.9 Sinusitis (chronic) 11/23/2007 477.9 Rhinitis Allergic 11/23/2007 JOSE TATE DO F 473.9 Sinusitis (chronic) 11/23/2007 JOSE TATE DO F 477.9 Rhinitis Allergic 11/23/2007 473.9 Sinusitis (chronic) 11/23/2007 477.9 Rhinitis Allergic 11/23/2007 473.9 Sinusitis (chronic) 11/23/2007 477.9 Rhinitis Allergic 11/23/2007 GEORGIE BARRERA MD 473.9 Sinusitis (chronic) 11/23/2007 GEORGIE BARRERA MD 477.9 Rhinitis Allergic 11/23/2007 JOSE RAUL JOHNSON LEONEL A 473.9 Sinusitis (chronic) 11/23/2007 JOSE RAUL JOHNSON, LEONEL A 477.9 Rhinitis Allergic 11/23/2007 NATI SIERRA MD 473.9 Sinusitis (chronic) 11/23/2007 NATI SIERRA MD 477.9 Rhinitis Allergic 11/23/2007 JOSE RAUL JOHNSON, LEONEL A 473.9 Sinusitis (chronic) 11/23/2007 JOSE RAUL JOHNSON, LEONEL A 477.9 Rhinitis Allergic 11/23/2007 JOSE RAUL OUTBOUND SALES CONSULTANT, LEONEL A 473.9 Sinusitis (chronic) 11/23/2007 JOSE RAUL JOHNSON, LEONEL A 477.9 Rhinitis Allergic 11/23/2007 JOSE RAUL JOHNSON, LEONEL A 473.9 Sinusitis (chronic) 11/23/2007 JOSE RAUL JOHNSON, LEONEL A 477.9 Rhinitis Allergic 11/23/2007 JOSE RAUL OUTBOUND SALES CONSULTANT, LEONEL A 473.9 Sinusitis (chronic) 11/23/2007 JOSE RAUL OUTBOUND SALES CONSULTANT, LEONEL A 477.9 Rhinitis Allergic 11/23/2007 MADL OUTBOUND SALES CONSULTANT, SHIRA L 473.9 Sinusitis (chronic) 11/23/2007 MADL OUTBOUND SALES CONSULTANT, SHIRA L 477.9 Rhinitis Allergic 11/23/2007 LOZADA DO WESTLEY K 473.9 Sinusitis (chronic) 11/23/2007 LOZADA DO, WESTLEY K 477.9 Rhinitis Allergic 11/23/2007 SHAY OUTBOUND SALES CONSULTANT, DEJON R 473.9 Sinusitis (chronic) 11/23/2007 SHAY OUTBOUND SALES CONSULTANT DEJON R 477.9 Rhinitis Allergic 12/29/2007 465.9 Upper Respiratory Infection 12/29/2007 NEVILLE THOMPSON WESTLEY K 465.9 Upper Respiratory Infection 12/29/2007 DAGO TUTTLE PSYD L 465.9 Upper Respiratory Infection 12/29/2007 465.9 Upper Respiratory Infection 12/29/2007 JOSE TATE DO 465.9 Upper Respiratory Infection 12/29/2007 465.9 Upper Respiratory Infection 12/29/2007 465.9 Upper Respiratory Infection 12/29/2007 HOLLY REYES, GEORGIE 465.9 Upper Respiratory Infection 12/29/2007 JOSE RAUL OUTBOUND SALES CONSULTANT, LEONEL A 465.9 Upper Respiratory Infection 12/29/2007 NATI SIERRA MD 465.9 Upper Respiratory Infection 12/29/2007 JOSE RAUL OUTBOUND SALES CONSULTANT, LEONEL A 465.9 Upper Respiratory Infection 12/29/2007 JOSE RAUL OUTBOUND SALES CONSULTANT, LEONEL A 465.9 Upper Respiratory Infection 12/29/2007 JOSE RAUL OUTBOUND SALES CONSULTANT, LEONEL A 465.9 Upper Respiratory Infection 12/29/2007 JOSE RAUL OUTBOUND SALES CONSULTANT, LEONEL A 465.9 Upper Respiratory Infection 12/29/2007 MADL OUTBOUND SALES CONSULTANT, SHIRA L 465.9 Upper Respiratory Infection 12/29/2007 LOZADA DO WESTLEY K 465.9 Upper Respiratory Infection 12/29/2007 JASPAL JOHNSON DEJON R 465.9 Upper Respiratory Infection 05/22/2008 599.0 Urinary Tract Infection 05/22/2008 NEVILLE THOMPSON WESTLEY K 599.0 Urinary Tract Infection 05/22/2008 DAGO TUTTLE PSYD L 599.0 Urinary Tract Infection 05/22/2008 599.0 Urinary Tract Infection 05/22/2008 JOSE TATE DO F 599.0 Urinary Tract Infection 05/22/2008 599.0 Urinary Tract Infection 05/22/2008 599.0 Urinary Tract Infection 05/22/2008 GEORGIE BARRERA MD 599.0 Urinary Tract Infection 05/22/2008 JOSE RAUL OUTBOUND SALES CONSULTANT, LEONEL A 599.0 Urinary Tract Infection 05/22/2008 NATI SIERRA MD 599.0 Urinary Tract Infection 05/22/2008 JOSE RAUL OUTBOUND SALES CONSULTANT, LEONEL A 599.0 Urinary Tract Infection 05/22/2008 JOSE RAUL OUTBOUND SALES CONSULTANT, LEONEL A 599.0 Urinary Tract Infection 05/22/2008 JOSE RAUL OUTBOUND SALES CONSULTANT, LEONEL A 599.0 Urinary Tract Infection 05/22/2008 JOSE RAUL OUTBOUND SALES CONSULTANT, LEONEL A 599.0 Urinary Tract Infection 05/22/2008 SHIRA MENDEZ APRN 599.0 Urinary Tract Infection 05/22/2008 WESTLEY LOZADA DO K 599.0 Urinary Tract Infection 05/22/2008 DEJON SHAY APRN R 599.0 Urinary Tract Infection 06/26/2008 466.0 Acute Bronchitis 06/26/2008 NEVILLE THOMPSON WESTLEY K 466.0 Acute Bronchitis 06/26/2008 DAGO TUTTLE PSYD L 466.0 Acute Bronchitis 06/26/2008 466.0 Acute Bronchitis 06/26/2008 JOSE TATE DO F 466.0 Acute Bronchitis 06/26/2008 466.0 Acute Bronchitis 06/26/2008 466.0 Acute Bronchitis 06/26/2008 GEORGIE BARRERA MD 466.0 Acute Bronchitis 06/26/2008 JOSE RAUL OUTBOUND SALES CONSULTANT, LEONEL A 466.0 Acute Bronchitis 06/26/2008 NATI SIERRA MD 466.0 Acute Bronchitis 06/26/2008 JOSE RAUL OUTBOUND SALES CONSULTANT, LEONEL A 466.0 Acute Bronchitis 06/26/2008 JOSE RAUL OUTBOUND SALES CONSULTANT, LEONEL A 466.0 Acute Bronchitis 06/26/2008 JOSE RAUL OUTBOUND SALES CONSULTANT, LEONEL A 466.0 Acute Bronchitis 06/26/2008 JOSE RAUL OUTBOUND SALES CONSULTANT, LEONEL A 466.0 Acute Bronchitis 06/26/2008 MADL OUTBOUND SALES CONSULTANT, SHIRA L 466.0 Acute Bronchitis 06/26/2008 NEVILLE THOMPSONPORTERA K 466.0 Acute Bronchitis 06/26/2008 VERENICE SHAY APRNIA R 466.0 Acute Bronchitis 11/14/2008 300.00 anxiety 11/14/2008 LOZADA DO, WESTLEY K 300.00 Anxiety 11/14/2008 DAGO TUTTLE PSYD 300.00 Anxiety 11/14/2008 300.00 Anxiety 11/14/2008 JOSE TATE DO 300.00 Anxiety 11/14/2008 300.00 Anxiety 11/14/2008 300.00 Anxiety 11/14/2008 GEORGIE BARRERA MD 300.00 Anxiety 11/14/2008 JOSE RAUL OUTBOUND SALES CONSULTANT, LEONEL A 300.00 Anxiety 11/14/2008 NATI SIERRA MD 300.00 Anxiety 11/14/2008 JOSE RAUL OUTBOUND SALES CONSULTANT, LEONEL A 300.00 Anxiety 11/14/2008 JOSE RAUL OUTBOUND SALES CONSULTANT, LEONEL A 300.00 Anxiety 11/14/2008 JOSE RAUL OUTBOUND SALES CONSULTANT, LEONEL A 300.00 Anxiety 11/14/2008 JOSE RAUL OUTBOUND SALES CONSULTANT, LEONEL A 300.00 Anxiety 11/14/2008 VANESSA VARGASN SHIRA L 300.00 Anxiety 11/14/2008 NEVILLE THOMPSON WESTLEY K 300.00 Anxiety 11/14/2008 DEJON SHAY APRN R 300.00 Anxiety 11/24/2008 V72.31 Routine Pelvic Exam 11/24/2008 PORTER LOZADA DOA K V72.31 Routine Pelvic Exam 11/24/2008 DAGO TUTTLE PSYD V72.31 Routine Pelvic Exam 11/24/2008 V72.31 Routine Pelvic Exam 11/24/2008 JOSE TATE DO V72.31 Routine Pelvic Exam 11/24/2008 V72.31 Routine Pelvic Exam 11/24/2008 V72.31 Routine Pelvic Exam 11/24/2008 GEORGIE BARRERA MD V72.31 Routine Pelvic Exam 11/24/2008 JOSE RAUL OUTBOUND SALES CONSULTANT, LEONEL A V72.31 Routine Pelvic Exam 11/24/2008 NATI SIERRA MD V72.31 Routine Pelvic Exam 11/24/2008 JOSE RAUL OUTBOUND SALES CONSULTANT, LEONEL A V72.31 Routine Pelvic Exam 11/24/2008 JOSE RAUL OUTBOUND SALES CONSULTANT, LEONEL A V72.31 Routine Pelvic Exam 11/24/2008 JOSE RAUL OUTBOUND SALES CONSULTANT, LEONEL A V72.31 Routine Pelvic Exam 11/24/2008 JOSE RAUL OUTBOUND SALES CONSULTANT, LEONEL A V72.31 Routine Pelvic Exam 11/24/2008 VANESSA OUTBOUND SALES CONSULTANTSHIRA V72.31 Routine Pelvic Exam 11/24/2008 LOZADA DOPORTERA K V72.31 Routine Pelvic Exam 11/24/2008 SHAY OUTBOUND SALES CONSULTANTDEJON R V72.31 Routine Pelvic Exam 02/20/2009 078.11 CONDYLOMA ACUMINATUM 02/20/2009 V69.2 Sexually Active, Frequently With New Partners 02/20/2009 LOZADA DOPORTERA K 078.11 CONDYLOMA ACUMINATUM 02/20/2009 LOZADA DOPORTERA K V69.2 Sexually Active, Frequently With New Partners 02/20/2009 DAGO TUTTLE PSYD L 078.11 CONDYLOMA ACUMINATUM 02/20/2009 DAGO TUTTLE PSYD L V69.2 Sexually Active, Frequently With New Partners 02/20/2009 078.11 CONDYLOMA ACUMINATUM 02/20/2009 V69.2 Sexually Active, Frequently With New Partners 02/20/2009 JOSE TATE DO F 078.11 CONDYLOMA ACUMINATUM 02/20/2009 JOSE TATE DO F V69.2 Sexually Active, Frequently With New Partners 02/20/2009 078.11 CONDYLOMA ACUMINATUM 02/20/2009 V69.2 Sexually Active, Frequently With New Partners 02/20/2009 078.11 CONDYLOMA ACUMINATUM 02/20/2009 V69.2 Sexually Active, Frequently With New Partners 02/20/2009 GEORGIE BARRERA MD 078.11 CONDYLOMA ACUMINATUM 02/20/2009 GEORGIE BARRERA MD V69.2 Sexually Active, Frequently With New Partners 02/20/2009 JOSE RAUL VARGASN, LEONEL A 078.11 CONDYLOMA ACUMINATUM 02/20/2009 JOSE RAUL APRN, LEONEL A V69.2 Sexually Active, Frequently With New Partners 02/20/2009 NATI SIERRA MD 078.11 CONDYLOMA ACUMINATUM 02/20/2009 NATI SIERRA MD V69.2 Sexually Active, Frequently With New Partners 02/20/2009 JOSE RAUL OUTBOUND SALES CONSULTANT, LEONEL A 078.11 CONDYLOMA ACUMINATUM 02/20/2009 JOSE RAUL OUTBOUND SALES CONSULTANT, LEONEL A V69.2 Sexually Active, Frequently With New Partners 02/20/2009 JOSE RAUL OUTBOUND SALES CONSULTANT, LEONEL A 078.11 CONDYLOMA ACUMINATUM 02/20/2009 JOSE RAUL OUTBOUND SALES CONSULTANT, LEONEL A V69.2 Sexually Active, Frequently With New Partners 02/20/2009 JOSE RAUL OUTBOUND SALES CONSULTANT, LEONEL A 078.11 CONDYLOMA ACUMINATUM 02/20/2009 JOSE RAUL OUTBOUND SALES CONSULTANT, LEONEL A V69.2 Sexually Active, Frequently With New Partners 02/20/2009 JOSE RAUL OUTBOUND SALES CONSULTANT, LEONEL A 078.11 CONDYLOMA ACUMINATUM 02/20/2009 JOSE RAUL OUTBOUND SALES CONSULTANT, LEONEL A V69.2 Sexually Active, Frequently With New Partners 02/20/2009 MADL OUTBOUND SALES CONSULTANT, SHIRA L 078.11 CONDYLOMA ACUMINATUM 02/20/2009 MADL OUTBOUND SALES CONSULTANT, SHIRA L V69.2 Sexually Active, Frequently With New Partners 02/20/2009 LOZADA DO, WESTLEY K 078.11 CONDYLOMA ACUMINATUM 02/20/2009 LOZADA DO, WESTLEY K V69.2 Sexually Active, Frequently With New Partners 02/20/2009 SHAY OUTBOUND SALES CONSULTANT, DEJON R 078.11 CONDYLOMA ACUMINATUM 02/20/2009 SHAY OUTBOUND SALES CONSULTANT, DEJON R V69.2 Sexually Active, Frequently With New Partners 06/19/2009 780.79 Malaise And Fatigue 06/19/2009 787.02 Nausea Alone 06/19/2009 788.41 Urinary Frequency 06/19/2009 V22.2 Incidental 06/19/2009 LOZADA DO, WESTLEY K 780.79 Malaise And Fatigue 06/19/2009 LOZADA DO, WESTLEY K 787.02 Nausea Alone 06/19/2009 LOZADA DO, WESTLEY K 788.41 Urinary Frequency 06/19/2009 LOZADA DO WESTLEY K V22.2 Incidental 06/19/2009 DAGO TUTTLE PSYD 780.79 Malaise And Fatigue 06/19/2009 DAGO TUTTLE PSYD 787.02 Nausea Alone 06/19/2009 DAGO TUTTLE PSYD L 788.41 Urinary Frequency 06/19/2009 DAGO TUTTLE PSYD L V22.2 Incidental 06/19/2009 780.79 Malaise And Fatigue 06/19/2009 787.02 Nausea Alone 06/19/2009 788.41 Urinary Frequency 06/19/2009 V22.2 Incidental 06/19/2009 BEBETO DO JOSE F 780.79 Malaise And Fatigue 06/19/2009 OTONIELDER DO JOSE F 787.02 Nausea Alone 06/19/2009 BEBETO DO JOSE F 788.41 Urinary Frequency 06/19/2009 BEBETO THOMPSON JOSE F V22.2 Incidental 06/19/2009 780.79 Malaise And Fatigue 06/19/2009 787.02 Nausea Alone 06/19/2009 788.41 Urinary Frequency 06/19/2009 V22.2 Incidental 06/19/2009 780.79 Malaise And Fatigue 06/19/2009 787.02 Nausea Alone 06/19/2009 788.41 Urinary Frequency 06/19/2009 V22.2 Incidental 06/19/2009 GEORGIE BARRERA MD 780.79 Malaise And Fatigue 06/19/2009 GEORGIE BARRERA MD 787.02 Nausea Alone 06/19/2009 GEORGIE BARRERA MD 788.41 Urinary Frequency 06/19/2009 GEORGIE BARRERA MD V22.2 Incidental 06/19/2009 LEONEL BLUNT APRN 780.79 Malaise And Fatigue 06/19/2009 LEONEL BLUNT APRN 787.02 Nausea Alone 06/19/2009 LEONEL BLUNT APRN A 788.41 Urinary Frequency 06/19/2009 LEONEL BLUNT APRN A V22.2 Incidental 06/19/2009 NATI SIERRA MD 780.79 Malaise And Fatigue 06/19/2009 NATI SIERRA MD 787.02 Nausea Alone 06/19/2009 NATI SIERRA MD 788.41 Urinary Frequency 06/19/2009 NATI SIERRA MD V22.2 Incidental 06/19/2009 JOSE RAUL OUTBOUND SALES CONSULTANT, LEONEL A 780.79 Malaise And Fatigue 06/19/2009 JOSE RAUL OUTBOUND SALES CONSULTANT, LEONEL A 787.02 Nausea Alone 06/19/2009 JOSE RAUL OUTBOUND SALES CONSULTANT, LEONEL A 788.41 Urinary Frequency 06/19/2009 JOSE RAUL OUTBOUND SALES CONSULTANT, LEONEL A V22.2 Incidental 06/19/2009 JOSE RAUL OUTBOUND SALES CONSULTANT, LEONEL A 780.79 Malaise And Fatigue 06/19/2009 JOSE RAUL OUTBOUND SALES CONSULTANT, LEONEL A 787.02 Nausea Alone 06/19/2009 JOSE RAUL OUTBOUND SALES CONSULTANT, LEONEL A 788.41 Urinary Frequency 06/19/2009 JOSE RAUL OUTBOUND SALES CONSULTANT, LEONEL A V22.2 Incidental 06/19/2009 JOSE RAUL OUTBOUND SALES CONSULTANT, LEONEL A 780.79 Malaise And Fatigue 06/19/2009 JOSE RAUL OUTBOUND SALES CONSULTANT, LEONEL A 787.02 Nausea Alone 06/19/2009 JOSE RAUL OUTBOUND SALES CONSULTANT, LEONEL A 788.41 Urinary Frequency 06/19/2009 JOSE RAUL OUTBOUND SALES CONSULTANT, LEONEL A V22.2 Incidental 06/19/2009 JOSE RAUL OUTBOUND SALES CONSULTANT, LEONEL A 780.79 Malaise And Fatigue 06/19/2009 JOSE RAUL OUTBOUND SALES CONSULTANT, LEONEL A 787.02 Nausea Alone 06/19/2009 JOSE RAUL OUTBOUND SALES CONSULTANT, LEONEL A 788.41 Urinary Frequency 06/19/2009 JOSE RAUL OUTBOUND SALES CONSULTANT, LEONEL A V22.2 Incidental 06/19/2009 VANESSA OUTBOUND SALES CONSULTANT, SHIRA L 780.79 Malaise And Fatigue 06/19/2009 DOMENICOChristy VARGASN, HSIRA L 787.02 Nausea Alone 06/19/2009 MADL OUTBOUND SALES CONSULTANT, SHIRA L 788.41 Urinary Frequency 06/19/2009 MADL OUTBOUND SALES CONSULTANT, SHIRA L V22.2 Incidental 06/19/2009 LOZADA DO, WESTLEY K 780.79 Malaise And Fatigue 06/19/2009 LOZADA DO, WESTLEY K 787.02 Nausea Alone 06/19/2009 LOZADA DO, WESTLEY K 788.41 Urinary Frequency 06/19/2009 LOZADA DO, WESTLEY K V22.2 Incidental 06/19/2009 DEJON SHAY APRN 780.79 Malaise And Fatigue 06/19/2009 DEJON SHAY APRN R 787.02 Nausea Alone 06/19/2009 DEJON SHAY APRN R 788.41 Urinary Frequency 06/19/2009 DEJON SHAY APRN R V22.2 Incidental 06/29/2009 V22.0 Supervision Of Normal First 06/29/2009 WESTLEY LOZADA DO V22.0 Supervision Of Normal First 06/29/2009 DAGO TUTTLE PSYD V22.0 Supervision Of Normal First 06/29/2009 V22.0 Supervision Of Normal First 06/29/2009 JOSE TATE DO V22.0 Supervision Of Normal First 06/29/2009 V22.0 Supervision Of Normal First 06/29/2009 V22.0 Supervision Of Normal First 06/29/2009 GEORGIE BARRERA MD V22.0 Supervision Of Normal First 06/29/2009 JOSE RAUL JOHNSON LEONEL A V22.0 Supervision Of Normal First 06/29/2009 NATI SIERRA MD V22.0 Supervision Of Normal First 06/29/2009 JOSE RAUL JOHNSON LEONEL A V22.0 Supervision Of Normal First 06/29/2009 JOSE RAUL JOHNSON LEONEL A V22.0 Supervision Of Normal First 06/29/2009 JOSE RAUL JOHNSON LEONEL A V22.0 Supervision Of Normal First 06/29/2009 JOSE RAUL JOHNSON LEONEL A V22.0 Supervision Of Normal First 06/29/2009 SHIRA MENDEZ APRN V22.0 Supervision Of Normal First 06/29/2009 WESTLEY LOZADA DO V22.0 Supervision Of Normal First 06/29/2009 DEJON SHAY APRN V22.0 Supervision Of Normal First 07/04/2009 296.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 07/04/2009 WESTLEY LOZADA DO 296.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 07/04/2009 DAGO TUTTLE PSYD 296.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 07/04/2009 296.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 07/04/2009 JOSE TATE DO 296.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 07/04/2009 296.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 07/04/2009 296.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 07/04/2009 HOLLY REYES, GEORGIE 296.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 07/04/2009 JOSE RAUL APRN, LEONEL A 296.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 07/04/2009 NATI SIERRA MD 296.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 07/04/2009 JOSE RAUL OUTBOUND SALES CONSULTANT, LEONEL A 296.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 07/04/2009 JOSE RAUL OUTBOUND SALES CONSULTANT, LEONEL A 296.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 07/04/2009 JOSE RAUL OUTBOUND SALES CONSULTANT, LEONEL A 296.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 07/04/2009 JOSE RAUL OUTBOUND SALES CONSULTANT, LEONEL A 296.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 07/04/2009 SHIRA MENDEZ APRN 296.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 07/04/2009 WESTLEY LOZADA DO 296.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 07/04/2009 DEJON SHAY APRN 296.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 07/11/2009 787.01 Nausea With Vomiting 07/11/2009 WESTLEY LOZADA DO 787.01 Nausea With Vomiting 07/11/2009 DAGO TUTTLE PSYD 787.01 Nausea With Vomiting 07/11/2009 787.01 Nausea With Vomiting 07/11/2009 JOSE TATE DO 787.01 Nausea With Vomiting 07/11/2009 787.01 Nausea With Vomiting 07/11/2009 787.01 Nausea With Vomiting 07/11/2009 GEORGIE BARRERA MD 787.01 Nausea With Vomiting 07/11/2009 NURA BLUNT APRNIDI A 787.01 Nausea With Vomiting 07/11/2009 NATI SIERRA MD 787.01 Nausea With Vomiting 07/11/2009 JOSE RAUL APRN, LEONEL A 787.01 Nausea With Vomiting 07/11/2009 JOSE RAULNURA Armando APRNIDI A 787.01 Nausea With Vomiting 07/11/2009 JOSE RAULTr JOHNSON LEONEL A 787.01 Nausea With Vomiting 07/11/2009 JOSE RAULTr JOHNSON LEONEL A 787.01 Nausea With Vomiting 07/11/2009 SHIRA MENDEZ APRN 787.01 Nausea With Vomiting 07/11/2009 WESTLEY LOZADA DO K 787.01 Nausea With Vomiting 07/11/2009 DEJON SHAY APRN R 787.01 Nausea With Vomiting 08/01/2009 783.21 Loss Of Weight 08/01/2009 WESTLEY LOZADA DO 783.21 Loss Of Weight 08/01/2009 DAGO TUTTLE PSYD 783.21 Loss Of Weight 08/01/2009 783.21 Loss Of Weight 08/01/2009 JOSE TATE DO 783.21 Loss Of Weight 08/01/2009 783.21 Loss Of Weight 08/01/2009 783.21 Loss Of Weight 08/01/2009 GEORGIE BARRERA MD 783.21 Loss Of Weight 08/01/2009 JOSE RAUL APRN, LEONEL A 783.21 Loss Of Weight 08/01/2009 NATI SIERRA MD 783.21 Loss Of Weight 08/01/2009 JOSE RAUL OUTBOUND SALES CONSULTANT, LEONEL A 783.21 Loss Of Weight 08/01/2009 JOSE RAUL OUTBOUND SALES CONSULTANT, LEONEL A 783.21 Loss Of Weight 08/01/2009 JOSE RAUL OUTBOUND SALES CONSULTANT, LEONEL A 783.21 Loss Of Weight 08/01/2009 JOSE RAUL OUTBOUND SALES CONSULTANT, LEONEL A 783.21 Loss Of Weight 08/01/2009 SHIRA MENDEZ APRN 783.21 Loss Of Weight 08/01/2009 WESTLEY LOZADA DO K 783.21 Loss Of Weight 08/01/2009 DEJON SHAY APRN R 783.21 Loss Of Weight 08/21/2009 616.10 Vaginitis Vulvovaginitis Unspecified 08/21/2009 WESTLEY LOZADA DO 616.10 Vaginitis Vulvovaginitis Unspecified 08/21/2009 DAGO TUTTLE PSYD 616.10 Vaginitis Vulvovaginitis Unspecified 08/21/2009 616.10 Vaginitis Vulvovaginitis Unspecified 08/21/2009 JOSE TATE DO 616.10 Vaginitis Vulvovaginitis Unspecified 08/21/2009 616.10 Vaginitis Vulvovaginitis Unspecified 08/21/2009 616.10 Vaginitis Vulvovaginitis Unspecified 08/21/2009 GEORGIE BARRERA MD 616.10 Vaginitis Vulvovaginitis Unspecified 08/21/2009 JOSE RAUL OUTBOUND SALES CONSULTANT, LEONEL A 616.10 Vaginitis Vulvovaginitis Unspecified 08/21/2009 NATI SIERRA MD 616.10 Vaginitis Vulvovaginitis Unspecified 08/21/2009 JOSE RAUL OUTB[employer] SALES CONSULTANT, LEONEL A 616.10 Vaginitis Vulvovaginitis Unspecified 08/21/2009 JOSE RAUL OUTBOUND SALES CONSULTANT, LEONEL A 616.10 Vaginitis Vulvovaginitis Unspecified 08/21/2009 JOSE RAUL OUTBOUND SALES CONSULTANT, LEONEL A 616.10 Vaginitis Vulvovaginitis Unspecified 08/21/2009 JOSE RAUL OUTBOUND SALES CONSULTANT, LEONEL A 616.10 Vaginitis Vulvovaginitis Unspecified 08/21/2009 VANESSA OUTBOUND SALES CONSULTANTSHIRA Armando 616.10 Vaginitis Vulvovaginitis Unspecified 08/21/2009 WESTLEY LOZADA DO 616.10 Vaginitis Vulvovaginitis Unspecified 08/21/2009 DEJON SHAY APRN 616.10 Vaginitis Vulvovaginitis Unspecified 11/01/2009 300.3 AN OBCESS COMP DIS 11/01/2009 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 11/01/2009 WESTLEY LOZADA DO 300.3 AN OBCESS COMP DIS 11/01/2009 WESTLEY LOZADA DO 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 11/01/2009 DAGO TUTTLE PSYD 300.3 AN OBCESS COMP DIS 11/01/2009 DAGO TUTTLE PSYD 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 11/01/2009 300.3 AN OBCESS COMP DIS 11/01/2009 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 11/01/2009 JOSE TATE DO 300.3 AN OBCESS COMP DIS 11/01/2009 JOSE TATE DO 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 11/01/2009 300.3 AN OBCESS COMP DIS 11/01/2009 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 11/01/2009 300.3 AN OBCESS COMP DIS 11/01/2009 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 11/01/2009 GEORGIE BARRERA MD 300.3 AN OBCESS COMP DIS 11/01/2009 GEORGIE BARRERA MD 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 11/01/2009 JOSE RAUL [employer] SALES CONSULTANT, LEONEL A 300.3 AN OBCESS COMP DIS 11/01/2009 JOSE RAUL OUTB[employer] SALES CONSULTANT, LEONEL A 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 11/01/2009 RIGO REYES, NATI Devine 300.3 AN OBCESS COMP DIS 11/01/2009 NATI SIERRA MD 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 11/01/2009 JOSE RAUL [employer] SALES CONSULTANT, LEONEL A 300.3 AN OBCESS COMP DIS 11/01/2009 JOSE RAUL OUTB[employer] SALES CONSULTANT, LEONEL A 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 11/01/2009 JOSE RAUL JOHNSON, LEONEL A 300.3 AN OBCESS COMP DIS 11/01/2009 JOSE RAUL [employer] SALES CONSULTANT, LEONEL A 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 11/01/2009 JOSE RAUL JOHNSON, LEONEL A 300.3 AN OBCESS COMP DIS 11/01/2009 JOSE RAUL JOHNSON, LEONEL A 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 11/01/2009 JOSE RAUL JOHNSON, LEONEL A 300.3 AN OBCESS COMP DIS 11/01/2009 JOSE RAUL APRN, LEONEL A 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 11/01/2009 SHIRA MENDEZ APRN 300.3 AN OBCESS COMP DIS 11/01/2009 SHIRA MENDEZ APRN 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 11/01/2009 WESTLEY LOZADA DO K 300.3 AN OBCESS COMP DIS 11/01/2009 WESTLEY LOZADA DO K 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 11/01/2009 DEJON SHAY APRN R 300.3 AN OBCESS COMP DIS 11/01/2009 DEJON SHAY APRN R 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 11/19/2009 530.81 Esophageal Reflux 11/19/2009 786.07 Wheezing 11/19/2009 PORTER LOZADA DOA K 530.81 Esophageal Reflux 11/19/2009 PORTER LOZADA DOA K 786.07 Wheezing 11/19/2009 DAGO TUTTLE PSYD 530.81 Esophageal Reflux 11/19/2009 DAGO TUTTLE PSYD 786.07 Wheezing 11/19/2009 530.81 Esophageal Reflux 11/19/2009 786.07 Wheezing 11/19/2009 JOSE TATE DO F 530.81 Esophageal Reflux 11/19/2009 JOSE TATE DO F 786.07 Wheezing 11/19/2009 530.81 Esophageal Reflux 11/19/2009 786.07 Wheezing 11/19/2009 530.81 Esophageal Reflux 11/19/2009 786.07 Wheezing 11/19/2009 GEORGIE BARRERA MD 530.81 Esophageal Reflux 11/19/2009 GEORGIE BARRERA MD 786.07 Wheezing 11/19/2009 JOSE RAUL OUTBOUND SALES CONSULTANT, LEONEL A 530.81 Esophageal Reflux 11/19/2009 JOSE RAUL APRN, LEONEL A 786.07 Wheezing 11/19/2009 NATI SIERRA MD 530.81 Esophageal Reflux 11/19/2009 NATI SIERRA MD 786.07 Wheezing 11/19/2009 JOSE RAUL OUTBOUND SALES CONSULTANT, LEONEL A 530.81 Esophageal Reflux 11/19/2009 JOSE RAUL OUTBOUND SALES CONSULTANT, LEONEL A 786.07 Wheezing 11/19/2009 JOSE RAUL OUTBOUND SALES CONSULTANT, LEONEL A 530.81 Esophageal Reflux 11/19/2009 JOSE RAUL OUTBOUND SALES CONSULTANT, LEONEL A 786.07 Wheezing 11/19/2009 JOSE RAUL OUTBOUND SALES CONSULTANT, LEONEL A 530.81 Esophageal Reflux 11/19/2009 JOSE RAUL OUTBOUND SALES CONSULTANT, LEONEL A 786.07 Wheezing 11/19/2009 JOSE RAUL OUTBOUND SALES CONSULTANT, LEONEL A 530.81 Esophageal Reflux 11/19/2009 JOSE RAUL OUTBOUND SALES CONSULTANT, LEONEL A 786.07 Wheezing 11/19/2009 MADL OUTBOUND SALES CONSULTANT, SHIRA L 530.81 Esophageal Reflux 11/19/2009 MADL OUTBOUND SALES CONSULTANT, SHIRA L 786.07 Wheezing 11/19/2009 LOZADA DO WESTLEY K 530.81 Esophageal Reflux 11/19/2009 LOZADA DO WESTLEY K 786.07 Wheezing 11/19/2009 DEJON SHAY APRN R 530.81 Esophageal Reflux 11/19/2009 DEJON SHAY APRN R 786.07 Wheezing 12/14/2009 Ot 599.0 12/14/2009 Ot 646.63 12/14/2009 Ot 655.73 12/30/2009 Ot 646.83 12/30/2009 Ot 789.09 01/22/2010 564.00 Constipation 01/22/2010 786.07 Wheezing 01/22/2010 LOZADA DO WESTLEY K 564.00 Constipation 01/22/2010 LOZADA DOPORTERA K 786.07 Wheezing 01/22/2010 DAGO TUTTLE PSYD L 564.00 Constipation 01/22/2010 DAGO TUTTLE PSYD L 786.07 Wheezing 01/22/2010 564.00 Constipation 01/22/2010 786.07 Wheezing 01/22/2010 WERGOLD JOSE F 564.00 Constipation 01/22/2010 WERGOLD JOSE F 786.07 Wheezing 01/22/2010 564.00 Constipation 01/22/2010 786.07 Wheezing 01/22/2010 564.00 Constipation 01/22/2010 786.07 Wheezing 01/22/2010 HOLLY REYES, GEORGIE 564.00 Constipation 01/22/2010 HOLLY REYES, GEORGIE 786.07 Wheezing 01/22/2010 JOSE RAUL OUTBOUND SALES CONSULTANT, LEONEL A 564.00 Constipation 01/22/2010 JOSE RAUL OUTBOUND SALES CONSULTANT, LEONEL A 786.07 Wheezing 01/22/2010 RIGO REYES, NATI Devine 564.00 Constipation 01/22/2010 RIGO REYES, NATI Devine 786.07 Wheezing 01/22/2010 JOSE RAUL OUTBOUND SALES CONSULTANT, LEONEL A 564.00 Constipation 01/22/2010 JOSE RAUL OUTBOUND SALES CONSULTANT, LEONEL A 786.07 Wheezing 01/22/2010 JOSE RAUL OUTBOUND SALES CONSULTANT, LEONEL A 564.00 Constipation 01/22/2010 JOSE RAUL OUTBOUND SALES CONSULTANT, LEONEL A 786.07 Wheezing 01/22/2010 JOSE RAUL OUTBOUND SALES CONSULTANT, LEONEL A 564.00 Constipation 01/22/2010 JOSE RAUL OUTBOUND SALES CONSULTANT, LEONEL A 786.07 Wheezing 01/22/2010 JOSE RAUL OUTBOUND SALES CONSULTANT, LEONEL A 564.00 Constipation 01/22/2010 JOSE RAUL OUTBOUND SALES CONSULTANT, LEONEL A 786.07 Wheezing 01/22/2010 MADL OUTBOUND SALES CONSULTANT, SHIRA L 564.00 Constipation 01/22/2010 MADL OUTBOUND SALES CONSULTANT, SHIRA L 786.07 Wheezing 01/22/2010 LOZADA DOPORTERA K 564.00 Constipation 01/22/2010 LOZADA DOPORTERA K 786.07 Wheezing 01/22/2010 DEJON SHAY APRN R 564.00 Constipation 01/22/2010 DEJON SHAY APRN R 786.07 Wheezing 01/29/2010 V74.5 Std Screen 01/29/2010 WESTLEY LOZADA DO V74.5 Std Screen 01/29/2010 DAGO TUTTLE PSYD V74.5 Std Screen 01/29/2010 V74.5 Std Screen 01/29/2010 JOSE TATE DO V74.5 Std Screen 01/29/2010 V74.5 Std Screen 01/29/2010 V74.5 Std Screen 01/29/2010 HOLLY REYES, GEORGIE V74.5 Std Screen 01/29/2010 JOSE RAULBRAD JOHNSON, LEONEL A V74.5 Std Screen 01/29/2010 RIGO REYES, NATI Devine V74.5 Std Screen 01/29/2010 JOSE RAUL OUTBOUND SALES CONSULTANT, LEONEL A V74.5 Std Screen 01/29/2010 JOSE RAUL APRN, LEONEL A V74.5 Std Screen 01/29/2010 JOSE RAUL OUTBOUND SALES CONSULTANT, LEONEL A V74.5 Std Screen 01/29/2010 JOSE RAUL OUTBOUND SALES CONSULTANT, LEONEL A V74.5 Std Screen 01/29/2010 SHIRA MENDEZ APRN V74.5 Std Screen 01/29/2010 WESTLEY LOZADA DO V74.5 Std Screen 01/29/2010 DEJON SHAY APRN R V74.5 Std Screen 02/25/2010 Ot 078.11 02/25/2010 Ot 647.61 02/25/2010 Ot 659.21 02/25/2010 Ot 792.3 02/25/2010 Ot E938.6 02/25/2010 Ot V27.0 03/22/2010 079.99 Viral Syndrome 03/22/2010 WESTLEY LOZADA DO 079.99 Viral Syndrome 03/22/2010 DAGO TUTTLE PSYD 079.99 Viral Syndrome 03/22/2010 079.99 Viral Syndrome 03/22/2010 JOSE TATE DO 079.99 Viral Syndrome 03/22/2010 079.99 Viral Syndrome 03/22/2010 079.99 Viral Syndrome 03/22/2010 GEORGIE BARRERA MD 079.99 Viral Syndrome 03/22/2010 JOSE RAUL OUTBOUND SALES CONSULTANT, LEONEL A 079.99 Viral Syndrome 03/22/2010 NATI SIERRA MD 079.99 Viral Syndrome 03/22/2010 JOSE RAUL OUTBOUND SALES CONSULTANT, LEONEL A 079.99 Viral Syndrome 03/22/2010 JOSE RAUL OUTBOUND SALES CONSULTANT, LEONEL A 079.99 Viral Syndrome 03/22/2010 JOSE RAUL OUTBOUND SALES CONSULTANT, LEONEL A 079.99 Viral Syndrome 03/22/2010 JOSE RUAL OUTBOUND SALES CONSULTANT, LEONEL A 079.99 Viral Syndrome 03/22/2010 VANESSA OUTBOUND SALES CONSULTANTSHIRA Armando 079.99 Viral Syndrome 03/22/2010 LOZADA DOWESTLEY 079.99 Viral Syndrome 03/22/2010 DEJON SHAY APRN 079.99 Viral Syndrome 04/04/2010 V24.2 Visit For: Exam 04/04/2010 V25.02 Contraceptives 04/04/2010 WESTLEY LOZADA DO V24.2 Visit For: Exam 04/04/2010 WESTLEY LOZADA DO V25.02 Contraceptives 04/04/2010 DAGO TUTTLE PSYD V24.2 Visit For: Exam 04/04/2010 DAGO TUTTLE PSYD V25.02 Contraceptives 04/04/2010 V24.2 Visit For: Exam 04/04/2010 V25.02 Contraceptives 04/04/2010 JOSE TATE DO V24.2 Visit For: Exam 04/04/2010 JOSE TATE DO V25.02 Contraceptives 04/04/2010 V24.2 Visit For: Exam 04/04/2010 V25.02 Contraceptives 04/04/2010 V24.2 Visit For: Exam 04/04/2010 V25.02 Contraceptives 04/04/2010 GEORGIE BARRERA MD V24.2 Visit For: Exam 04/04/2010 GEORGIE BARRERA MD V25.02 Contraceptives 04/04/2010 LEONEL BLUNT APRN V24.2 Visit For: Exam 04/04/2010 JOSE RAUL JOHNSON, LEONEL A V25.02 Contraceptives 04/04/2010 NATI SIERRA MD V24.2 Visit For: Exam 04/04/2010 NATI SIERRA MD V25.02 Contraceptives 04/04/2010 JOSE RAULBRAD JOHNSON, LEONEL A V24.2 Visit For: Exam 04/04/2010 JOSE RAUL APRN, LEONEL A V25.02 Contraceptives 04/04/2010 JOSE RAUL OUTBOUND SALES CONSULTANT, LEONEL A V24.2 Visit For: Exam 04/04/2010 JOSE RAUL OUTBOUND SALES CONSULTANT, LEONEL A V25.02 Contraceptives 04/04/2010 JOSE RAUL OUTBOUND SALES CONSULTANT, LEONEL A V24.2 Visit For: Exam 04/04/2010 JOSE RAUL APRN, LEONEL A V25.02 Contraceptives 04/04/2010 JOSE RAUL OUTBOUND SALES CONSULTANT, LEONEL A V24.2 Visit For: Exam 04/04/2010 JOSE RAUL APRN, LEONEL A V25.02 Contraceptives 04/04/2010 MADChristy JOHNSON, SHIRA L V24.2 Visit For: Exam 04/04/2010 VANESSA JOHNSON, SHIRA L V25.02 Contraceptives 04/04/2010 WESTLEY LOZADA DO K V24.2 Visit For: Exam 04/04/2010 WESTLEY LOZADA DO K V25.02 Contraceptives 04/04/2010 JASPAL JOHNSON, DEOJN R V24.2 Visit For: Exam 04/04/2010 DEJON SHAY APRN R V25.02 Contraceptives 06/11/2010 V72.41 Test Negative Result 06/11/2010 WESTLEY LOZADA DO V72.41 Test Negative Result 06/11/2010 DAGO TUTTLE PSYD V72.41 Test Negative Result 06/11/2010 V72.41 Test Negative Result 06/11/2010 JOSE TATE DO V72.41 Test Negative Result 06/11/2010 V72.41 Test Negative Result 06/11/2010 V72.41 Test Negative Result 06/11/2010 GEORGIE BARRERA MD V72.41 Test Negative Result 06/11/2010 LEONEL BLUNT APRN A V72.41 Test Negative Result 06/11/2010 NATI SIERRA MD V72.41 Test Negative Result 06/11/2010 LEONEL BLUNT APRN A V72.41 Test Negative Result 06/11/2010 JOSE RAUL OUTBOUND SALES CONSULTANT, LEONEL A V72.41 Test Negative Result 06/11/2010 JOSE RAUL OUTBOUND SALES CONSULTANT, LEONEL A V72.41 Test Negative Result 06/11/2010 JOSE RAUL OUTBOUND SALES CONSULTANT, LEONEL A V72.41 Test Negative Result 06/11/2010 DOMENICOTASHI Harrison APRNMIRTA Harrison V72.41 Test Negative Result 06/11/2010 WESTLEY LOZADA DO V72.41 Test Negative Result 06/11/2010 JASPAL ELIZABETH DEJON Saucedo V72.41 Test Negative Result 01/02/2011 780.99 loss of pleasure from usual activities (anhedonia) 01/02/2011 WESTLEY LOZADA DO 780.99 Loss Of Pleasure From Usual Activities ( anhedonia) 01/02/2011 DAGO TUTTLE PSYD 780.99 Loss Of Pleasure From Usual Activities (anhedonia) 01/02/2011 780.99 Loss Of Pleasure From Usual Activities (anhedonia) 01/02/2011 JOSE TATE DO 780.99 Loss Of Pleasure From Usual Activities ( anhedonia) 01/02/2011 780.99 Loss Of Pleasure From Usual Activities (anhedonia) 01/02/2011 780.99 Loss Of Pleasure From Usual Activities (anhedonia) 01/02/2011 GEORGIE BARRERA MD 780.99 Loss Of Pleasure From Usual Activities ( anhedonia) 01/02/2011 JOSE RAUL OUTBOUND SALES CONSULTANT, LEONEL A 780.99 Loss Of Pleasure From Usual Activities ( anhedonia) 01/02/2011 NATI SIERRA MD 780.99 Loss Of Pleasure From Usual Activities (anhedonia) 01/02/2011 JOSE RAUL OUTBOUND SALES CONSULTANT, LEONEL A 780.99 Loss Of Pleasure From Usual Activities ( anhedonia) 01/02/2011 JOSE RAUL OUTBOUND SALES CONSULTANT, LEONEL A 780.99 Loss Of Pleasure From Usual Activities ( anhedonia) 01/02/2011 JOSE RAUL OUTBOUND SALES CONSULTANT, LEONEL A 780.99 Loss Of Pleasure From Usual Activities ( anhedonia) 01/02/2011 JOSE RAUL OUTBOUND SALES CONSULTANT, LEONEL A 780.99 Loss Of Pleasure From Usual Activities ( anhedonia) 01/02/2011 VANESSA OUTBOUND SALES CONSULTANTSHIRA Armando 780.99 Loss Of Pleasure From Usual Activities ( anhedonia) 01/02/2011 WESTLEY LOZADA DO 780.99 Loss Of Pleasure From Usual Activities ( anhedonia) 01/02/2011 DEJON SHAY APRN 780.99 Loss Of Pleasure From Usual Activities (anhedonia) 02/03/2011 V58.69 taking high-risk medication 02/03/2011 WESTLEY LOZADA DO K V58.69 taking high-risk medication 02/03/2011 DAGO TUTTLE PSYD V58.69 taking high-risk medication 02/03/2011 V58.69 taking high-risk medication 02/03/2011 JOSE TATE DO V58.69 taking high-risk medication 02/03/2011 V58.69 taking high-risk medication 02/03/2011 V58.69 taking high-risk medication 02/03/2011 GEORGIE BARRERA MD V58.69 taking high-risk medication 02/03/2011 JOSE RAUL JOHNSON LEONEL A V58.69 taking high-risk medication 02/03/2011 NATI SIERRA MD V58.69 taking high-risk medication 02/03/2011 JOSE RAULTr JOHNSON LEONEL A V58.69 taking high-risk medication 02/03/2011 JOSE RAUL APRN, LEONEL A V58.69 taking high-risk medication 02/03/2011 JOSE RAULTr JOHNSON LEONEL A V58.69 taking high-risk medication 02/03/2011 JOSE RAUL APRN, LEONEL A V58.69 taking high-risk medication 02/03/2011 SHIRA MENDEZ APRN V58.69 taking high-risk medication 02/03/2011 WESTLEY LOZADA DO K V58.69 taking high-risk medication 02/03/2011 DEJON SHAY APRN R V58.69 taking high-risk medication 02/11/2011 462 Acute Pharyngitis 02/11/2011 WESTLEY LOZADA DO 462 Acute Pharyngitis 02/11/2011 DAGO TUTTLE PSYD 462 Acute Pharyngitis 02/11/2011 462 Acute Pharyngitis 02/11/2011 JOSE TATE DO 462 Acute Pharyngitis 02/11/2011 462 Acute Pharyngitis 02/11/2011 462 Acute Pharyngitis 02/11/2011 GEORGIE BARRERA MD 462 Acute Pharyngitis 02/11/2011 JOSE RAUL JOHNSON, LEONEL A 462 Acute Pharyngitis 02/11/2011 NATI SIERRA MD 462 Acute Pharyngitis 02/11/2011 JOSE RAUL OUTBOUND SALES CONSULTANT, LEONEL A 462 Acute Pharyngitis 02/11/2011 JOSE RAUL OUTBOUND SALES CONSULTANT, LEONEL A 462 Acute Pharyngitis 02/11/2011 JOSE RAUL JOHNSON, LEONEL A 462 Acute Pharyngitis 02/11/2011 JOSE RAUL APRN, LEONEL A 462 Acute Pharyngitis 02/11/2011 SHIRA MENDEZ APRN 462 Acute Pharyngitis 02/11/2011 WESTLEY LOZADA DO 462 Acute Pharyngitis 02/11/2011 DEJON SHAY APRN 462 Acute Pharyngitis 04/22/2011 V25.09 Gynecologic Services Contraceptive General Counseling 04/22/2011 V25.9 CONTRACEPTION MANAGEMENT 04/22/2011 WESTLEY LOZADA DO V25.09 Gynecologic Services Contraceptive General Counseling 04/22/2011 WESTLEY LOZADA DO V25.9 Contraception Management 04/22/2011 DAGO TUTTLE PSYD V25.09 Gynecologic Services Contraceptive General Counseling 04/22/2011 DAGO TUTTLE PSYD V25.9 Contraception Management 04/22/2011 V25.09 Gynecologic Services Contraceptive General Counseling 04/22/2011 V25.9 Contraception Management 04/22/2011 JOSE TATE DO V25.09 Gynecologic Services Contraceptive General Counseling 04/22/2011 JOSE TATE DO V25.9 Contraception Management 04/22/2011 V25.09 Gynecologic Services Contraceptive General Counseling 04/22/2011 V25.9 Contraception Management 04/22/2011 V25.09 Gynecologic Services Contraceptive General Counseling 04/22/2011 V25.9 Contraception Management 04/22/2011 GEORGIE BARRERA MD V25.09 Gynecologic Services Contraceptive General Counseling 04/22/2011 GEORGIE BARRERA MD V25.9 Contraception Management 04/22/2011 LEONEL BLUNT APRN A V25.09 Gynecologic Services Contraceptive General Counseling 04/22/2011 LEONEL BLUNT APRN A V25.9 Contraception Management 04/22/2011 NATI SIERRA MD V25.09 Gynecologic Services Contraceptive General Counseling 04/22/2011 NATI SIERRA MD V25.9 Contraception Management 04/22/2011 JOSE RAUL VARGASN, LEONEL A V25.09 Gynecologic Services Contraceptive General Counseling 04/22/2011 JOSE RAUL VARGASN, LEONEL A V25.9 Contraception Management 04/22/2011 JOSE RAUL VARGASN, LEONEL A V25.09 Gynecologic Services Contraceptive General Counseling 04/22/2011 JOSE RAUL VARGASN, LEONEL A V25.9 Contraception Management 04/22/2011 JOSE RAUL VARGASN, LEONEL A V25.09 Gynecologic Services Contraceptive General Counseling 04/22/2011 JOSE RAUL VARGASN, LEONEL A V25.9 Contraception Management 04/22/2011 JOSE RAUL VARGASTr LEONEL A V25.09 Gynecologic Services Contraceptive General Counseling 04/22/2011 JOSE RAUL VARGASTr LEONEL A V25.9 Contraception Management 04/22/2011 VANESSA SHIRA JOHNSON V25.09 Gynecologic Services Contraceptive General Counseling 04/22/2011 SHIRA MENDEZ APRN V25.9 Contraception Management 04/22/2011 WESTLEY LOZADA DO V25.09 Gynecologic Services Contraceptive General Counseling 04/22/2011 WESTLEY LOZADA DO K V25.9 Contraception Management 04/22/2011 DEJON SHAY APRN V25.09 Gynecologic Services Contraceptive General Counseling 04/22/2011 DEJON SHAY APRN R V25.9 Contraception Management 04/25/2011 V76.9 Cancer Screening, Unsp 04/25/2011 WESTLEY LOZADA DO V76.9 Cancer Screening, Unsp 04/25/2011 DAGO TUTTLE PSYD V76.9 Cancer Screening, Unsp 04/25/2011 V76.9 Cancer Screening, Unsp 04/25/2011 JOSE TATE DO V76.9 Cancer Screening, Unsp 04/25/2011 V76.9 Cancer Screening, Unsp 04/25/2011 V76.9 Cancer Screening, Unsp 04/25/2011 GEORGIE BARRERA MD V76.9 Cancer Screening, Unsp 04/25/2011 JOSE RAULLEONEL Armando APRN A V76.9 Cancer Screening, Unsp 04/25/2011 NATI SIERRA MD V76.9 Cancer Screening, [facility] 04/25/2011 LEONEL BLUNT APRN V76.9 Cancer Screening, [facility] 04/25/2011 LEONEL BLUNT APRN V76.9 Cancer Screening, [facility] 04/25/2011 LEONEL BLUNT APRN V76.9 Cancer Screening, [facility] 04/25/2011 LEONEL BLUNT APRN V76.9 Cancer Screening, [facility] 04/25/2011 SHIRA MENDEZ APRN V76.9 Cancer Screening, [facility] 04/25/2011 LOZADA DOWESTLEY K V76.9 Cancer Screening, [facility] 04/25/2011 DEJON SHAY APRN V76.9 Cancer Screening, [facility] 06/18/2011 278.02 Overweight 06/18/2011 V65.3 Patient Education - Dietary 06/18/2011 WESTLEY LOZADA DO K 278.02 Overweight 06/18/2011 LOZADA DOWESTLEY V65.3 Patient Education - Dietary 06/18/2011 DAGO TUTTLE PSYD 278.02 Overweight 06/18/2011 DAGO TUTTLE PSYD V65.3 Patient Education - Dietary 06/18/2011 278.02 Overweight 06/18/2011 V65.3 Patient Education - Dietary 06/18/2011 JOSE TATE DO 278.02 Overweight 06/18/2011 JOSE TATE DO V65.3 Patient Education - Dietary 06/18/2011 278.02 Overweight 06/18/2011 V65.3 Patient Education - Dietary 06/18/2011 278.02 Overweight 06/18/2011 V65.3 Patient Education - Dietary 06/18/2011 GEORGIE BARRERA MD 278.02 Overweight 06/18/2011 GEORGIE BARRERA MD V65.3 Patient Education - Dietary 06/18/2011 LEONEL BLUNT APRN 278.02 Overweight 06/18/2011 LEONEL BLUNT APRN V65.3 Patient Education - Dietary 06/18/2011 NATI SIERRA MD 278.02 Overweight 06/18/2011 NATI SIERRA MD V65.3 Patient Education - Dietary 06/18/2011 JOSE RAUL OUTBOUND SALES CONSULTANT, LEONEL A 278.02 Overweight 06/18/2011 JOSE RAUL VARGASN, LEONEL A V65.3 Patient Education - Dietary 06/18/2011 JOSE RAUL VARGASN, LEONEL A 278.02 Overweight 06/18/2011 JOSE RAUL VARGASN, LEONEL A V65.3 Patient Education - Dietary 06/18/2011 JOSE RAUL VARGASN, LEONEL A 278.02 Overweight 06/18/2011 JOSE RAUL VARGASN, LEONEL A V65.3 Patient Education - Dietary 06/18/2011 JOSE RAUL VARGASN, LEONEL A 278.02 Overweight 06/18/2011 JOSE RAUL JOHNSON, LEONEL A V65.3 Patient Education - Dietary 06/18/2011 VANESSA JOHNSONSHIRA L 278.02 Overweight 06/18/2011 VANESSA JOHNSON, SHIRA L V65.3 Patient Education - Dietary 06/18/2011 LOZADA DOPORTERA K 278.02 Overweight 06/18/2011 LOZADA DO WESTLEY K V65.3 Patient Education - Dietary 06/18/2011 JASPAL OUTBOUND SALES CONSULTANTVERENICE ArmandoIA R 278.02 Overweight 06/18/2011 SHAY OUTBOUND SALES CONSULTANTAZ ArmandoDEJON R V65.3 Patient Education - Dietary 03/10/2012 LOZADA DO, WESTLEY K 300.02 AN GEN ANXIETY 03/10/2012 DAGO TUTTLE PSYD 300.02 AN GEN ANXIETY 03/10/2012 300.02 AN GEN ANXIETY 03/10/2012 JOSE TATE DO 300.02 AN GEN ANXIETY 03/10/2012 300.02 AN GEN ANXIETY 03/10/2012 300.02 AN GEN ANXIETY 03/10/2012 GEORGIE BARRERA MD 300.02 AN GEN ANXIETY 03/10/2012 JOSE RAUL OUTBOUND SALES CONSULTANT, LEONEL A 300.02 AN GEN ANXIETY 03/10/2012 NATI SIERRA MD 300.02 AN GEN ANXIETY 03/10/2012 JOSE RAUL OUTBOUND SALES CONSULTANT, LEONEL A 300.02 AN GEN ANXIETY 03/10/2012 JOSE RAUL OUTBOUND SALES CONSULTANTNURALEONEL A 300.02 AN GEN ANXIETY 03/10/2012 JOSE RAUL OUTBOUND SALES CONSULTANT, LEONEL A 300.02 AN GEN ANXIETY 03/10/2012 JOSE RAUL OUTBOUND SALES CONSULTANT, LEONEL A 300.02 AN GEN ANXIETY 03/10/2012 MADL OUTBOUND SALES CONSULTANT, SHIRA L 300.02 AN GEN ANXIETY 03/10/2012 WESTELY LOZADA DO 300.02 AN GEN ANXIETY 03/10/2012 SHAY OUTBOUND SALES CONSULTANT, DEJON R 300.02 AN GEN ANXIETY 05/05/2012 WERCATRACHITA DO, JOSE F 300.01 AN PANIC DIS W/O AGORA 05/05/2012 BEBETO DO, JOSE F 311 DEPRESSIVE DISORDER NOS 05/05/2012 WERCATRACHITA DO, JOSE F 314.01 ADHD COMBINED 05/05/2012 300.01 AN PANIC DIS W/O AGORA 05/05/2012 311 DEPRESSIVE DISORDER NOS 05/05/2012 314.01 ADHD COMBINED 05/05/2012 300.01 AN PANIC DIS W/O AGORA 05/05/2012 311 DEPRESSIVE DISORDER NOS 05/05/2012 314.01 ADHD COMBINED 05/05/2012 GEORGIE BARRERA MD 300.01 AN PANIC DIS W/O AGORA 05/05/2012 GEORGIE BARRERA MD 311 DEPRESSIVE DISORDER NOS 05/05/2012 GEORGIE BARRERA MD 314.01 ADHD COMBINED 05/05/2012 JOSE RAUL OUTBOUND SALES CONSULTANT, LEONEL A 300.01 AN PANIC DIS W/O AGORA 05/05/2012 JOSE RAUL OUTBOUND SALES CONSULTANT, LEONEL A 311 DEPRESSIVE DISORDER NOS 05/05/2012 JOSE RAUL OUTBOUND SALES CONSULTANT, LEONEL A 314.01 ADHD COMBINED 05/05/2012 NATI SIERRA MD 300.01 AN PANIC DIS W/O AGORA 05/05/2012 NATI SIERRA MD 311 DEPRESSIVE DISORDER NOS 05/05/2012 NATI SIERRA MD 314.01 ADHD COMBINED 05/05/2012 JOSE RAUL OUTBOUND SALES CONSULTANT, LEONEL A 300.01 AN PANIC DIS W/O AGORA 05/05/2012 JOSE RAUL OUTBOUND SALES CONSULTANT, LEONEL A 311 DEPRESSIVE DISORDER NOS 05/05/2012 JOSE RAUL OUTBOUND SALES CONSULTANT, LEONEL A 314.01 ADHD COMBINED 05/05/2012 JOSE RAUL OUTBOUND SALES CONSULTANT, LEONEL A 300.01 AN PANIC DIS W/O AGORA 05/05/2012 JOSE RAUL OUTBOUND SALES CONSULTANT, LEONEL A 311 DEPRESSIVE DISORDER NOS 05/05/2012 JOSE RAUL OUTBOUND SALES CONSULTANT, LEONEL A 314.01 ADHD COMBINED 05/05/2012 JOSE RAUL OUTBOUND SALES CONSULTANT, LEONEL A 300.01 AN PANIC DIS W/O AGORA 05/05/2012 JOSE RAUL OUTBOUND SALES CONSULTANT, LEONEL A 311 DEPRESSIVE DISORDER NOS 05/05/2012 JOSE RAUL OUTBOUND SALES CONSULTANT, LEONEL A 314.01 ADHD COMBINED 05/05/2012 JOSE RAUL OUTBOUND SALES CONSULTANT, LEONEL A 300.01 AN PANIC DIS W/O AGORA 05/05/2012 JOSE RAUL OUTBOUND SALES CONSULTANT, LEONEL A 311 DEPRESSIVE DISORDER NOS 05/05/2012 JOSE RAUL OUTBOUND SALES CONSULTANT, LEONEL A 314.01 ADHD COMBINED 05/05/2012 MADL OUTBOUND SALES CONSULTANT SHIRA L 300.01 AN PANIC DIS W/O AGORA 05/05/2012 MADL OUTBOUND SALES CONSULTANT, SHIRA L 311 DEPRESSIVE DISORDER NOS 05/05/2012 MADL OUTBOUND SALES CONSULTANT, SHIRA L 314.01 ADHD COMBINED 05/05/2012 LOZADA DO, WESTLEY K 300.01 AN PANIC DIS W/O AGORA 05/05/2012 LOZADA DO, WESTLEY K 311 DEPRESSIVE DISORDER NOS 05/05/2012 LOZADA DO, WESTLEY K 314.01 ADHD COMBINED 05/05/2012 VERENICE SHAY APRNIA R 300.01 AN PANIC DIS W/O AGORA 05/05/2012 VERENICE SHAY APRNIA R 311 DEPRESSIVE DISORDER NOS 05/05/2012 VERENICE SHAY APRNIA R 314.01 ADHD COMBINED 07/14/2012 V76.10 BREAST CANCER SCREENING 07/14/2012 V76.10 BREAST CANCER SCREENING 07/14/2012 GEORGIE BARRERA MD V76.10 BREAST CANCER SCREENING 07/14/2012 JOSE RAUL VARGASN, LEONEL A V76.10 BREAST CANCER SCREENING 07/14/2012 RIGO REYES, NATI Devine V76.10 BREAST CANCER SCREENING 07/14/2012 JOSE RAUL OUTBOUND SALES CONSULTANT, LEONEL A V76.10 BREAST CANCER SCREENING 07/14/2012 JOSE RAUL OUTBOUND SALES CONSULTANT, LEONEL A V76.10 BREAST CANCER SCREENING 07/14/2012 JOSE RAUL OUTBOUND SALES CONSULTANT, LEONEL A V76.10 BREAST CANCER SCREENING 07/14/2012 JOSE RAUL OUTBOUND SALES CONSULTANT, LEONEL A V76.10 BREAST CANCER SCREENING 07/14/2012 VANESSA OUTBOUND SALES CONSULTANT, SHIRA L V76.10 BREAST CANCER SCREENING 07/14/2012 LOZADA , WESTLEY K V76.10 BREAST CANCER SCREENING 07/14/2012 DEJON SHAY APRN R V76.10 BREAST CANCER SCREENING 02/04/2013 HOLLY REYES, GEORGIE 786.2 COUGH 02/04/2013 JOSE RAUL OUT[employer] SALES CONSULTANT, LEONEL A 786.2 COUGH 02/04/2013 NATI SIERRA MD 786.2 COUGH 02/04/2013 JOSE RAUL OUTBOUND SALES CONSULTANT, LEONEL A 786.2 COUGH 02/04/2013 JOSE RAUL OUTBOUND SALES CONSULTANT, LEONEL A 786.2 COUGH 02/04/2013 JOSE RAUL OUTBOUND SALES CONSULTANT, LEONEL A 786.2 COUGH 02/04/2013 JOSE RAUL OUTBOUND SALES CONSULTANT, LEONEL A 786.2 COUGH 02/04/2013 MADChristy OUTBOUND SALES CONSULTANTSHIRA Armando 786.2 COUGH 02/04/2013 LOZADA PORTER THOMPSONA K 786.2 COUGH 02/04/2013 DEJON SHAY APRN R 786.2 COUGH 04/19/2013 JOSE RAUL OUTBOUND SALES CONSULTANT, LEONEL A V74.5 STD SCREEN 04/19/2013 NATI SIERRA MD V74.5 STD SCREEN 04/19/2013 JOSE RAUL OUTBOUND SALES CONSULTANT, LEONEL A V74.5 STD SCREEN 04/19/2013 JOSE RAUL OUTBOUND SALES CONSULTANT, LEONEL A V74.5 STD SCREEN 04/19/2013 JOSE RAUL OUTBOUND SALES CONSULTANT, LEONEL A V74.5 STD SCREEN 04/19/2013 JOSE RAUL OUTBOUND SALES CONSULTANT, LEONEL A V74.5 STD SCREEN 04/19/2013 VANESSA OUTBOUND SALES CONSULTANTSHIRA Armando V74.5 STD SCREEN 04/19/2013 WESTLEY LOZADA DO K V74.5 STD SCREEN 04/19/2013 DEJON SHYA APRN R V74.5 STD SCREEN 04/20/2013 NATI SIERRA MD 780.79 FATIGUE 04/20/2013 JOSE RAUL OUTBOUND SALES CONSULTANT, LEONEL A 780.79 FATIGUE 04/20/2013 JOSE RAUL OUTBOUND SALES CONSULTANT, LEONEL A 780.79 FATIGUE 04/20/2013 JOSE RAUL OUTBOUND SALES CONSULTANT, LEONEL A 780.79 FATIGUE 04/20/2013 JOSE RAUL OUTBOUND SALES CONSULTANT, LEONEL A 780.79 FATIGUE 04/20/2013 MADChristy OUTBOUND SALES CONSULTANT, SHIRA L 780.79 FATIGUE 04/20/2013 LOZADA PORTER THOMPSONA K 780.79 FATIGUE 04/20/2013 DEJON SHAY APRN R 780.79 FATIGUE 07/20/2013 JOSE RAUL OUTB[employer] SALES CONSULTANT, LEONEL A V72.31 PLANT BREEDER EXAM, ROUTINE 07/20/2013 JOSE RAUL JOHNSON, LEONEL A V72.31 PLANT BREEDER EXAM, ROUTINE 07/20/2013 JOSE RAUL JOHNSON, LEONEL A V72.31 PLANT BREEDER EXAM, ROUTINE 07/20/2013 JOSE RAUL JOHNSON, LEONEL A V72.31 PLANT BREEDER EXAM, ROUTINE 07/20/2013 VANESSA JOHNSONSHIRA V72.31 PLANT BREEDER EXAM, ROUTINE 07/20/2013 WESTLEY LOZADA DO V72.31 PLANT BREEDER EXAM, ROUTINE 07/20/2013 DEJON SHAY APRN R V72.31 PLANT BREEDER EXAM, ROUTINE 08/16/2013 JOSE RAUL JOHNSON LEONEL A V65.45 COUNSELING - STD 08/16/2013 JOSE RAUL JOHNSON, LEONEL A V65.45 COUNSELING - STD 08/16/2013 JOSE RALU JOHNSON, LEONEL A V65.45 COUNSELING - STD 08/16/2013 VANESSA VARGASSHIRA Armando V65.45 COUNSELING - STD 08/16/2013 WESTLEY LOZADA DO V65.45 COUNSELING - STD 08/16/2013 DEJON SHAY APRN V65.45 COUNSELING - STD 11/02/2013 JOSE RAUL JOHNSON, LEONEL A 623.5 LEUKORRHEA NOT SPECIFIED INFECTIVE 11/02/2013 JOSE RAUL JOHNSON, LEONEL A 623.5 LEUKORRHEA NOT SPECIFIED INFECTIVE 11/02/2013 DOMENICOChristy VARGASSHIRA Armando 623.5 LEUKORRHEA NOT SPECIFIED INFECTIVE 11/02/2013 WESTLEY LOZADA DO 623.5 LEUKORRHEA NOT SPECIFIED INFECTIVE 11/02/2013 DEJON SHAY APRN 623.5 LEUKORRHEA NOT SPECIFIED INFECTIVE 12/22/2013 DOMENICOChristy VARGASSHIRA Armando 303.90 OTHER AND UNSPECIFIED ALCOHOL DEPENDENCE UNSPECIFIED DRINKING BEHAVIOR 12/22/2013 WESTLEY LOZADA DO 303.90 OTHER AND UNSPECIFIED ALCOHOL DEPENDENCE UNSPECIFIED DRINKING BEHAVIOR 12/22/2013 DEJON SHAY APRN 303.90 OTHER AND UNSPECIFIED ALCOHOL DEPENDENCE UNSPECIFIED DRINKING BEHAVIOR 03/20/2014 Ot 649.53 03/20/2014 Ot V28.89 03/20/2014 FELIPE LOWRY MD Ot 486 PNEUMONIA, ORGANISM NOS 03/20/2014 FELIPE LOWRY MD Ot 786.2 COUGH 03/20/2014 Ot 649.53 03/20/2014 Ot V28.89 04/06/2014 JASPAL JOHNSON DEJON R 786.07 WHEEZING 05/30/2015 BRAD ROSADO OUTBOUND SALES CONSULTANT Ot R23.8 07/11/2015 PENNY REYES, LIA Garay Ot L30.9 DERMATITIS, UNSPECIFIED 05/14/2016 BRAD ROSADO OUTBOUND SALES CONSULTANT Ot R23.8 OTHER SKIN CHANGES 05/14/2016 BRAD ROSADO OUTBOUND SALES CONSULTANT Ot R23.8 OTHER SKIN CHANGES 05/14/2016 BRAD ROSADO OUTBOUND SALES CONSULTANT Ot R23.8 OTHER SKIN CHANGES 05/14/2016 LÓPEZ BOURNE MD Ot S91.012A LACERATION WITHOUT FOREIGN BODY, LEFT AN 05/14/2016 LÓPEZ BOURNE MD Ot W22.09XA STRIKING AGAINST OTHER STATIONARY OBJECT 05/14/2016 LÓPEZ BOURNE MD Ot Y92.[address] IN [facility] NON-INSTITUT ( PRIVATE 05/14/2016 LÓPEZ BOURNE MD Ot Y99.8 OTHER EXTERNAL CAUSE STATUS 05/15/2016 LÓPEZ BOURNE MD Ot S91.012A LACERATION WITHOUT FOREIGN BODY, LEFT AN 05/15/2016 LÓPEZ BOURNE MD Ot W22.09XA STRIKING AGAINST OTHER STATIONARY OBJECT 05/15/2016 LÓPEZ BOURNE MD Ot Y92.[address] IN [facility] NON-INSTITUT ( PRIVATE 05/15/2016 LÓPEZ BOURNE MD Ot Y99.8 OTHER EXTERNAL CAUSE STATUS 05/20/2016 BRAD ROSADO OUTBOUND SALES CONSULTANT Ot R23.8 OTHER SKIN CHANGES 10/03/2016 BRAD ROSADO OUTBOUND SALES CONSULTANT Ot R23.8 OTHER SKIN CHANGES 10/03/2016 BRAD ROSADO OUTBOUND SALES CONSULTANT Ot R23.8 OTHER SKIN CHANGES 10/27/2016 MARJ VERDUZCO MD Ot Z36 ENCOUNTER FOR SCREENING OF MOT 10/27/2016 MARJ VERDUZCO MD, Ot Z3A.12 12 WEEKS GESTATION OF 11/26/2016 LUBA MD, MARJ N Ot Z36 ENCOUNTER FOR SCREENING OF MOT 11/26/2016 MARJ VERDUZCO MD Ot Z3A.00 WEEKS OF GESTATION OF NOT SPEC 12/10/2016 MARJ VERDUZCO MD Ot Z36 ENCOUNTER FOR SCREENING OF MOT 12/10/2016 MARJ VERDUZCO MD Ot Z3A.00 WEEKS OF GESTATION OF NOT SPEC 12/19/2016 MARJ VERDUZCO MD Ot Z36 ENCOUNTER FOR SCREENING OF MOT 12/19/2016 MARJ VERDUZCO MD Ot Z3A.00 WEEKS OF GESTATION OF NOT SPEC 12/23/2016 MARJ VERDUZCO MD, Ot O32.1XX0 MATERNAL CARE FOR BREECH PRESENTATION, U 12/23/2016 MARJ VERDUZCO MD Ot Z3A.00 WEEKS OF GESTATION OF NOT SPEC 12/23/2016 MARJ VERDUZCO MD Ot Z36 ENCOUNTER FOR SCREENING OF MOT 12/23/2016 MARJ VERDUZCO MD Ot Z3A.00 WEEKS OF GESTATION OF NOT SPEC 12/30/2016 MARJ VERDUZCO MD Ot Z36 ENCOUNTER FOR SCREENING OF MOT 12/30/2016 MARJ VERDUZCO MD Ot Z3A.00 WEEKS OF GESTATION OF NOT SPEC Procedures Code [place] [address] PSYCH DIAGNOSTIC EVALUATION 03/24/2012 41300 PSYTX PT&/FAMILY 30 MINUTES 03/24/2012 92194 PSYTX PT&/FAMILY 45 MINUTES 05/05/2012 76960 ROUTINE VENIPUNCTURE 07/14/2012 58394 HIV ANTIBODIES (RML) 07/15/2012 35623 SYPHILLIS-[facility] 07/16/2012 74342 GC/CHLAM URINE ([facility]) 07/16/2012 06829 URINE TEST (IN-HOUSE) 02/04/2013 51633 ROUTINE VENIPUNCTURE 04/19/2013 95269 HIV ([facility]) 04/19/2013 45753 GC/CHLAM URINE ([facility]) 04/19/2013 84818 TEST, URINE (IN-HOUSE) 04/19/2013 63679 URINE DRUG SCREEN (IN-HOUSE) 04/20/2013 68454 CBC 04/20/2013 6316415 GFR CALC (RESULT ONLY) 04/20/2013 50951 CMP 04/20/2013 45457 TSH 04/20/2013 19156 AMMONIA 2013 87250 CULTURE UROGENITAL 10/05/2013 67639 GC/CHLAM PROBE (STATE) 10/05/2013 68801 TRICHOMONAS (IN-HOUSE) 11/02/2013 12018 ROUTINE VENIPUNCTURE 12/22/2013 YAHIR FERNANDES 12/22/2013 94199 CBC 12/23/2013 7408886 GFR CALC (RESULT ONLY) 12/23/2013 71842 CMP 12/23/2013 55630 TSH 12/23/2013 Results Encounters ACCT No. Visit Date/Time Discharge Status Pt. Type Provider Facility Loc./Unit Complaint [id number] 04/06/2014 14:58:00 04/06/2014 23: 59:59 CLS Outpatient DEJON SHAY APRN [id number] 01/12/2014 13:31:00 01/12/2014 23: 59:59 CLS Outpatient WESTLEY LOZADA DO [id number] 12/22/2013 15:02:00 12/22/2013 23: 59:59 CLS Outpatient SHIRA MENDEZ APRN [id number] 11/03/2013 00:00:00 11/03/2013 23: 59:59 CLS Outpatient LEONEL BLUNT APRN [id number] 10/05/2013 00:00:00 10/05/2013 23: 59:59 CLS Outpatient LEONEL BLUNT APRN [id number] 08/16/2013 15:05:00 08/16/2013 23: 59:59 CLS Outpatient LEONEL BLUNT APRN [id number] 07/20/2013 15:13:00 07/20/2013 23: 59:59 CLS Outpatient LEONEL BLUNT APRN [id number] 04/20/2013 10:28:00 04/20/2013 23: 59:59 CLS Outpatient NATI SIERRA MD [id number] 04/19/2013 14:58:00 04/19/2013 23: 59:59 CLS Outpatient LEONEL BLUNT APRN [id number] 02/04/2013 14:50:00 02/04/2013 23: 59:59 CLS Outpatient GEORGIE BARRERA MD [id number] 05/05/2012 16:13:00 05/05/2012 23: 59:59 CLS Outpatient JOSE TATE DO [id number] 04/01/2012 15:40:00 04/01/2012 23: 59:59 CLS Outpatient [id number] 03/22/2012 12:28:00 03/22/2012 23: 59:59 CLS Outpatient DAGO TUTTLE PSYD [id number] 03/11/2012 13:58:00 03/11/2012 23: 59:59 [place] [id number] 08/22/2011 16:18:00 08/22/2011 23: 59:59 CLS Outpatient [id number] 08/26/2012 17:33:00 Document Registration [id number] 07/14/2012 15:34:00 Document Registration [id number] 12/30/2016 12:54:00 2016 23:59:59 CLS Outpatient MARJ VERDUZCO MD [facility] RAD SECOND TRIMESTER Z34.92 [id number] 12/03/2016 16:38:00 2016 23:59:59 CLS Outpatient MARJ VERDUZCO MD [facility] RAD Z34.92 [id number] 11/20/2016 17:30:00 2016 23:59:59 CLS Outpatient MARJ VERDUZCO MD [facility] RAD Z34.92 [id number] 10/07/2016 10:30:00 2016 23:59:59 CLS Outpatient MARJ VERDUZCO MD [facility] RAD 8 WEEKS GEST Z3A.08 [id number] 05/14/2016 14:21:00 2016 16:26:00 DIS Emergency LÓPEZ BOURNE MD [facility] ER LEFT LEG LAC [id number] 07/11/2015 12:24:00 2015 15:00:00 DIS Outpatient LIA FRANCIS MD [facility] WOUNDCARE [id number] 05/29/2015 10:35:00 2015 23:59:59 CLS Outpatient BRAD ROSADO APRN [facility] RAD SKIN IRRITATION,SCREENING FOR MALIGNANT NEOPLASM [id number] 03/20/2014 03:08:00 2014 03:54:00 DIS Emergency ESSENCE REYES, FELIPE [facility] ER COUGH;FLUID IN LUNGS;LIGHT HEADED [id number] 01/08/2013 16:05:00 2012 23:59:59 CLS Outpatient [id number] 02/22/2010 17:20:00 Document Registration [id number] 12/30/2009 05:08:00 Document Registration [id number] 12/14/2009 19:38:00 Document Registration [id number] 10/18/2009 10:01:00 Document Registration [id number] 07/02/2009 09:01:00 Document Registration
--- NOTE | 2017-01-12 20:04 | ED General ---
General Chief Complaint: General Problems/Pain Stated Complaint: LT SIDED RIB PAIN,DIZZINESS Nursing Triage Note: pt reports l sided rib pain x several months, pt also reports soa and dizziness. Pt reports she is aprox 26 weeks preg. Nursing Sepsis Screen: No Definite Risk Source of Information: Patient History of Present Illness Time Seen by Provider: 19:45 Initial Comments MULTITUDE OF COMPLAINTS--ALL CHRONIC FOR POSSIBLY A YEAR OR MORE PT IS 6 MONTHS AND ALL OF THESE SYMPTOMS WERE GOING ON FOR MANY MONTHS BEFORE SHE BECAME SYMPTOMS ARE NO DIFFERENT TODAY IN ANY WAY HAS NEVER DISCUSSED ANY OF THESE SYMPTOMS WITH HER PCP / OB DR LYLA VERDUZCO ON Thursday01/09/17 FOR BRONCHITIS SYMPTOMS--GIVEN RX FOR ALBUTEROL , AND TAKING OTC DELSYM AND COUGH IS BETTER NO FEVER NO CHEST PAIN ONGOING / CHRONIC PROBLEMS INCLUDE: PAIN IN LUQ/LEFT LOWER RIBS--SOMETIMES ALSO ON THE RIGHT SHORTNESS OF BREATH WITH ACTIVITY "COLD SWEATS" "CAN'T STAND" BECAUSE SHE GETS TIRED AND SHE "FEELS LIKE WEIGHTS ARE ALL OVER MY BODY" AND "FEELS LIKE SHE IS GOING TO COLLAPSE" IF SHE STANDS--STATES SHE "CAN'T WORK" "CAN'T GET COMFORTABLE" ' C/O DIZZINESS WITH STANDING C/O BACK PAIN C/O NAUSEA , NO VOMITING NO FEVER NO URINARY SYMPTOMS THEN PT STATES "I DON'T REALLY HURT ALOT" HAS NOT TAKEN ANYTHING FOR SYMPTOMS AT ANY TIME PT STATES "MY MOM WAS LOOKING IT UP AND THOUGHT IT MIGHT BE MY PANCREAS" SO CAME STRAIGHT HERE. PCP/OB: DR. VERDUZCO--NEXT APPOINTMENT 01/19/17 Allergies and Home Medications Allergies Coded Allergies: dextrose (Unverified Allergy, Mild, 07/27/08) cefotaxime (Verified Allergy, Unknown, 08/26/06) Home Medications Azithromycin 250 Mg Tab, 0 PO Z-ASHISH, #6 2 Tabs 1st day (now), 1 Tab daily Prescribed by: FELIPE LOWRY on 03/20/14346 Benzonatate 200 Mg Capsule, 1 EACH PO TID PRN, #14 Prescribed by: FELIPE LOWRY on 03/20/147 Fluoxetine Hcl 10 Mg Capsule, Unknown Dose PO DAILY, (Reported) Constitutional: dizziness, malaise, weakness EENTM: no symptoms reported Respiratory: see HPI, cough, dyspnea on exertion, short of breath, No wheezing Cardiovascular: chest pain, No edema, No palpitations, No syncope Gastrointestinal: see HPI, abdominal pain, No diarrhea, No loss of appetite, nausea, No vomiting Genitourinary: No dysuria, frequency (WITH ) : Yes Musculoskeletal: see HPI, back pain, muscle pain Skin: no symptoms reported Psychiatric/Neurological: No Symptoms Reported, Denies Headache, Denies Numbness, Denies Paresthesia, Denies Seizure Hematologic/Lymphatic: No Symptoms Reported Immunological/Allergic: no symptoms reported Past Ulshyni-Tzatuz-Gbxrjb Hx Patient Social History Alcohol Use: Occasionally Uses Recreational Drug Use: No Smoking Status: Never a Smoker Recent Foreign Travel: No Contact w/Someone Who Travel: No Recent Infectious Disease Expo: No Recent Hopitalizations: No Physical Abuse: No Sexual Abuse: No Mistreated: No Fear: No Immunizations Up To Date Tetanus Booster (TDap): More than 5yrs Seasonal Allergies Seasonal Allergies: No Surgeries History of Surgeries: Yes (SINUS SURGERY; RIGHT GREAT TOE FX/SURGERY; URETHRAL DILATION) Surgeries: Bladder Surgery, Orthopedic Respiratory History of Respiratory Disorde: No Cardiovascular History of Cardiac Disorders: No Neurological History of Neurological Disord: Yes (TOURETTE'S ) Reproductive System Hx : 2 Hx Para: 1 Hx Total # of Abortions (Spona: 0 Hx Reproductive Disorders: No Female Reproductive Disorders: Denies Genitourinary History of Genitourinary Disor: No Gastrointestinal History of Gastrointestinal Di: No Musculoskeletal History of Musculoskeletal Dis: Yes (RIGHT GREAT TOE FX/SURGERY) Musculoskeletal Disorders: Fractures Endocrine History of Endocrine Disorders: No HEENT History of HEENT Disorders: No Cancer History of Cancer: No Psychosocial History of Psychiatric Problem: Yes (TOURETTE'S) Behavioral Health Disorders: ADD/ADHD, Anxiety, Depression Suicide Risk Score: 0 Integumentary History of Skin or Integumenta: No Blood Transfusions History of Blood Disorders: No Adverse Reaction to a Blood Tr: No Physical Exam Vital Signs Vital Sign - Last 12Hours 01/12/17 19:43 Temp 98.0 Pulse 108 Resp 16 B/P (MAP) 135/73 Pulse Ox 99 Capillary Refill : Less Than 3 Seconds General Appearance: No Apparent Distress, WD/WN, Other (TALKS RAPIDLY, NON-STOP ) HEENT: PERRL/EOMI, TMs Normal, Normal ENT Inspection, Pharynx Normal Neck: Full Range of Motion, Normal Inspection, Non Tender, Supple, No Carotid Bruit, No JVD Respiratory: Normal Breath Sounds, No Accessory Muscle Use, No Respiratory Distress Cardiovascular: Regular Rate, Rhythm, No Edema, No JVD, No Murmur, Normal Peripheral Pulses Gastrointestinal: Normal Bowel Sounds, No Organomegaly, No Pulsatile Mass, Non Tender, Soft Back: Normal Inspection, No CVA Tenderness, No Vertebral Tenderness Extremity: Normal Capillary Refill, Normal Inspection, Normal Range of Motion, Non Tender, No Calf Tenderness, No Pedal Edema Neurologic/Psychiatric: Alert, Oriented x3, No Motor/Sensory Deficits, sales outfitter II- XII Norm as Tested Skin: Normal Color, Warm/Dry Laceration Repair : Suture Size: 4-0 Progress/Results/Core Measures Results/Orders Lab Results Laboratory Tests Test 01/12/17 20:09 01/12/17 20:10 Range/Units White Blood Count 10.5 4.3-11.0 10^3/uL Red Blood Count 4.14 L 4.35-5.85 10^6/uL Hemoglobin 11.4 L 11.5-16.0 G/DL Hematocrit 35 35-52 % Mean Corpuscular Volume 84 80-99 FL Mean Corpuscular Hemoglobin 28 25-34 PG Mean Corpuscular Hemoglobin Concent 33 32-36 G/DL Red Cell Distribution Width 13.1 10.0-14.5 % Platelet Count 296 130-400 10^3/uL Mean Platelet Volume 10.7 H 7.4-10.4 FL Neutrophils (%) (Auto) 70 42-75 % Lymphocytes (%) (Auto) 20 12-44 % Monocytes (%) (Auto) 8 0-12 % Eosinophils (%) (Auto) 2 0-10 % Basophils (%) (Auto) 0 0-10 % Neutrophils # (Auto) 7.3 1.8-7.8 X 10^3 Lymphocytes # (Auto) 2.1 1.0-4.0 X 10^3 Monocytes # (Auto) 0.9 0.0-1.0 X 10^3 Eosinophils # (Auto) 0.2 0.0-0.3 10^3/uL Basophils # (Auto) 0.0 0.0-0.1 10^3/uL Sodium Level 137 135-145 MMOL/L Potassium Level 3.7 3.6-5.0 MMOL/L Chloride Level 107 98-107 MMOL/L Carbon Dioxide Level 20 L 21-32 MMOL/L Anion Gap 10 5-14 MMOL/L Blood Urea Nitrogen 8 7-18 MG/DL Creatinine 0.68 0.60-1.30 MG/DL Estimat Glomerular Filtration Rate > 60 BUN/Creatinine Ratio 12 Glucose Level 93 70-105 MG/DL Calcium Level 8.9 8.5-10.1 MG/DL Magnesium Level 1.6 L 1.8-2.4 MG/DL Total Bilirubin 0.2 0.1-1.0 MG/DL Aspartate Amino Transf (AST/SGOT) 14 5-34 U/L Alanine Aminotransferase (ALT/SGPT) 11 0-55 U/L Alkaline Phosphatase 63 40-136 U/L Total Protein 6.7 6.4-8.2 GM/DL Albumin 3.3 3.2-4.5 GM/DL Amylase Level 63 25-125 U/L Lipase 12 8-78 U/L TSH [place] Testing 0.80 0.35-4.94 UIU/ML Urine Color YELLOW Urine Clarity CLEAR Urine pH 6.5 5-9 Urine Specific [place] 1.015 L 1.016-1.022 Urine Protein NEGATIVE NEGATIVE Urine Glucose (UA) NEGATIVE NEGATIVE Urine Ketones NEGATIVE NEGATIVE Urine Nitrite NEGATIVE NEGATIVE Urine Bilirubin NEGATIVE NEGATIVE Urine Urobilinogen NORMAL NORMAL MG/DL Urine Leukocyte Esterase 1+ H NEGATIVE Urine RBC (Auto) NEGATIVE NEGATIVE Urine RBC NONE /HPF Urine WBC 0-2 /HPF Urine Squamous Epithelial Cells 0-2 /HPF Urine Crystals PRESENT H /LPF Urine Amorphous Sediment FEW ARELY URATES H /LPF Urine Bacteria FEW H /HPF Urine Casts NONE /LPF Urine Mucus NEGATIVE /LPF Urine Culture Indicated NO My Orders Orders - ESTEPHANIA MORAN DO Saline Lock/Iv-Start (01/12/17 19:54) Heart Tones (01/12/17 19:54) Amylase (01/12/17 19:54) Cbc With Automated Diff (01/12/17 19:54) Comprehensive Metabolic Panel (01/12/17 19:54) Lipase (01/12/17 19:54) Ua Culture If Indicated (01/12/17 19:54) Magnesium (01/12/17 20:08) Thyroid Analyzer (01/12/17 20:08) Urine Culture (01/12/17 20:37) Magnesium Oxide Tablet (Mag Ox Tablet) (01/12/17 21:15) Medications Given in ED Current Medications Medications Dose Ordered Sig/Morris Route Start Time Stop Time Status Last Admin Dose Admin Magnesium Oxide 400 mg ONCE ONCE PO 01/12/17 21:15 01/12/17 21:16 DC 01/12/17 21:16 400 MG Vital Signs/I&O Vital Sign - Last 12Hours 01/12/17 01/12/17 19:43 21:20 Temp 98.0 98.0 Pulse 108 102 Resp 16 16 B/P (MAP) 135/73 Pulse Ox 99 99 Blood Pressure Mean: 93 Progress Note : Progress Note UNEVENTFUL ER STAY Departure Impression Impression: Primary Impression: Chronic abdominal pain Additional Impressions: 6 weeks gestation of Fatigue Chronic generalized pain MILD HYPOMAGNESIA Disposition: 01 HOME, SELF-CARE Condition: Stable Departure-Patient Inst. Referrals: MARJ VERDUZCO MD (PCP/Family) Primary Care Physician Patient Instructions: CHRONIC PAIN, How to Adapt to Physical Changes During , Low Magnesium Level (DC), - The Seventh Month, - The Sixth Month Add. Discharge Instructions: CONTINUE YOUR REGULAR MEDICATIONS PRESCRIBED FOLLOW UP WITH LUBA HOLLAND NEXT WEEK SCHEDULED All discharge instructions reviewed with patient and/or family. Voiced understanding. ESTEPHANIA MORAN DO Jan 12, 2017 20:04
[2017-01-12 20:18] LABS: BASOPHILS % (AUTO) 0 % (0-10); EOSINOPHILS # (AUTO) 0.2 10^3/uL (0.0-0.3); EOSINOPHILS % (AUTO) 2 % (0-10); LYMPHOCYTES # (AUTO) 2.1 X 10^3 (1.0-4.0); LYMPHOCYTES % (AUTO) 20 % (12-44); MEAN CORPUSCULAR HEMOGLOBIN 28 PG (25-34); MEAN CORPUSCULAR HGB CONC 33 G/DL (32-36); MEAN CORPUSCULAR VOLUME 84 FL (80-99); MEAN PLATELET VOLUME 10.7 FL (7.4-10.4); MONOCYTES # (AUTO) 0.9 X 10^3 (0.0-1.0); MONOCYTES % (AUTO) 8 % (0-12); NEUTROPHILS # (AUTO) 7.3 X 10^3 (1.8-7.8); NEUTROPHILS % (AUTO) 70 % (42-75); PLATELET COUNT 296 10^3/uL (130-400); RED BLOOD COUNT 4.14 10^6/uL (4.35-5.85); RED CELL DISTRIBUTION WIDTH 13.1 % (10.0-14.5); WHITE BLOOD COUNT 10.5 10^3/uL (4.3-11.0)
[2017-01-12 20:23] LABS: BILIRUBIN,URINE NEGATIVE (NEGATIVE); KETONES,URINE NEGATIVE (NEGATIVE); LEUKOCYTE ESTERASE ,URINE 1+ (NEGATIVE); NITRITE,URINE NEGATIVE (NEGATIVE); PH,URINE 6.5 (5-9); PROTEIN,URINE NEGATIVE (NEGATIVE); UROBILINOGEN,URINE NORMAL (NORMAL)
[2017-01-12 20:34] LABS: SQUAMOUS EPITHELIAL CELL,UR 0-2 /HPF; WBC,URINE 0-2 /HPF
[2017-01-12 20:39] LABS: ALANINE AMINOTRANSFERASE 11 U/L (0-55); ALBUMIN 3.3 GM/DL (3.2-4.5); AMYLASE 63 U/L (25-125); ANION GAP 10 MMOL/L (5-14); ASPARTATE AMINO TRANSFERASE 14 U/L (5-34); BILIRUBIN,TOTAL 0.2 MG/DL (0.1-1.0); BLOOD UREA NITROGEN 8 MG/DL (7-18); BUN/CREATININE RATIO 12; CALCIUM 8.9 MG/DL (8.5-10.1); CARBON DIOXIDE 20 MMOL/L (21-32); CHLORIDE 107 MMOL/L (98-107); CREATININE SERUM 0.68 MG/DL (0.60-1.30); GFR ESTIMATED > 60; GLUCOSE 93 MG/DL (70-105); LIPASE 12 U/L (8-78); MAGNESIUM 1.6 MG/DL (1.8-2.4); POTASSIUM 3.7 MMOL/L (3.6-5.0); SODIUM 137 MMOL/L (135-145); TOTAL PROTEIN 6.7 GM/DL (6.4-8.2)
[2017-01-12] MEDS ORDERED: MAGNESIUM OXIDE (MAG-OX)400 MG TAB PO ONE (21:15)
[2017-01-12 21:20] VITALS: BP 127/74
== END 2017-01-12 21:20 | disposition home or self-care (01) ==
LOC: EDUNIT# 19:07 → ER 19:09
DX: O99.89 Other specified diseases and conditions complicating pregnancy, childbirth and the puerperium (principal); R10.84 Generalized abdominal pain; G89.29 Other chronic pain; R53.83 Other fatigue; O99.282 Endocrine, nutritional and metabolic diseases complicating pregnancy, second trimester; E83.42 Hypomagnesemia; O99.342 Other mental disorders complicating pregnancy, second trimester; F41.9 Anxiety disorder, unspecified; F90.9 Attention-deficit hyperactivity disorder, unspecified type; F32.9 Major depressive disorder, single episode, unspecified; Z3A.00 Weeks of gestation of pregnancy not specified
CPT/HCPCS: 36415; 80053; 81000; 82150; 83690; 83735; 84443; 85025; 87088

== ENCOUNTER 2017-02-09 18:57 | Outpatient (CLI) | payer MEDICAID ==
[~2017-02-09] VITALS: Ht 162.6 cm; Wt 83.9 kg
[2017-02-09] MEDS ORDERED: PNV11TAB5 PO (19:36)
[2017-02-09] MEDS ORDERED: ALBU0.63 IH (19:37)
[2017-02-09 19:48] LABS: BILIRUBIN,URINE NEGATIVE (NEGATIVE); KETONES,URINE NEGATIVE (NEGATIVE); LEUKOCYTE ESTERASE ,URINE NEGATIVE (NEGATIVE); NITRITE,URINE NEGATIVE (NEGATIVE); PH,URINE 7 (5-9); PROTEIN,URINE NEGATIVE (NEGATIVE); UROBILINOGEN,URINE NORMAL (NORMAL)
[2017-02-09 20:00] VITALS: BP 121/75
[2017-02-09] MEDS ORDERED: INFLUENZA TRIvalent 2017-2018 0.5 ML/45 MCG SYR IM ONE (20:15)
--- NOTE | 2017-02-10 12:32 | Physician Query-Final Dx ---
KELSEY ROLAND 02/10/17 1232: Clinic Account Progress/Dx Physician Query: Please give diagnosis Date of Service Feb 09, 2017 at 18:57 MARJ VERDUZCO MD 02/11/17 0909: Clinic Account Progress/Dx DIAGNOSIS: Diagnosis Third trimester bleeding with no placenta previa or low lying placenta KELSEY ROLAND Feb 10, 2017 12:32 MARJ VERDUZCO MD Feb 11, 2017 09:09
== END 2017-02-09 20:50 | disposition home or self-care (01) ==
LOC: LDRP 18:57 → WSo 18:57
PROVIDERS: ATTEND Family Medicine
DX: O46.93 Antepartum hemorrhage, unspecified, third trimester (principal); Z3A.30 30 weeks gestation of pregnancy
CPT/HCPCS: 81000; 87210; 99213

== ENCOUNTER 2017-02-18 14:18 | Observation (INO) | payer MEDICAID ==
[~2017-02-18] VITALS: Ht 162.6 cm; Wt 83.9 kg
[~2017-02-18 14:18] MED LIST changes: +ALBU0.63 IH; +PNV11TAB5 PO
[2017-02-18] MEDS ORDERED: NS IV 1000 ML 1,000 ML IV SCH (14:29)
[2017-02-18] MEDS ORDERED: PROMETHAZINE INJ 25 MG/ML (PHENERGAN) AMP IVP PRN (14:30)
[2017-02-18] MEDS ORDERED: DOCUSATE SODIUM 100 MG (COLACE) CAP PO PRN (14:30)
[2017-02-18] MEDS ORDERED: ACETAMINOPHEN 500 MG TAB (TYLENOL) PO PRN (14:30)
--- NOTE | 2017-02-18 14:34 | History & Physicial (CHS) ---
HPI History of Present Illness: 31 yo at 32w1d presented to clinic for routine ob visit but also had become quite ill the day prior with fever up to 101 and severe cough, dizziness and near syncope. She has had chronic cough intermittently throughout her and was treated with azithromycin for possible atypical pneumonia 2 weeks ago and she does feel she had some improvement with that although not resolution. Yesterday she suddenly became much worse. Her daughter was diagnosed with influenza A just before her Ob appointment at which her influenza A testing was also positive. She is wetting herself and feeling pelvic discomfort with coughing. She did not have a flu vaccine. Date seen by provider: Feb 18, 2017 Time Seen by Provider: 14:30 Attending Physician Marj Spaulding MD PCP Consult Date of Admission Feb 18, 2017 at 14:18 Home Medications Home Medications Reviewed patient Home Medication Reconciliation Form Allergies Coded Allergies: dextrose (Unverified Allergy, Mild, 07/27/08) cefotaxime (Verified Allergy, Unknown, 08/26/06) BCJ-Zudmgb-Truoww Hx Patient Social History Recent Foreign Travel: No Contact w/other who traveled: No Recent Hopitalizations: No Immunizations Up To Date Tetanus Booster (TDap): More than 5yrs Past Medical History PMHx: ADHD Depression Panic disorder PSurgHx: Great toe surgery Sinus surgery Family Medical History Significant Family History: No Pertinent Family Hx Review of Systems ([facility]) Constitutional: chills, diaphoresis, dizziness, fever EENTM: nose congestion, throat pain Respiratory: cough, short of breath Cardiovascular: no symptoms reported Gastrointestinal: no symptoms reported Genitourinary: incontinence (stress) : Yes Expected Date of Delivery: Apr 14, 2017 Musculoskeletal: muscle pain Skin: no symptoms reported Psychiatric/Neurological: Anxiety Physical Exam-([facility]) Physical Exam Vital Signs Capillary Refill : General Appearance: moderate distress Eyes: Bilateral Eye Normal Inspection Respiratory: lungs clear, normal breath sounds Cardiovascular: no murmur, tachycardia Gastrointestinal: other (gravid, non-tender, FHTs 140) Extremities: no pedal edema Neurologic/Psychiatric: alert, normal mood/affect Skin: diaphoresis Copy Copies To 1: MARJ SPAULDING MD Assessment/Plan Assessment/Plan (1) Influenza A Status: Acute Assessment & Plan: Start oseltamavir and IVF, check CBC, CMP, lactic acid, blood culture and UA due to fever and chest x-ray given chronicity of cough (2) 32 weeks gestation of Status: Acute Assessment & Plan: Normal heart tones in clinic, check NST twice daily, monitor for vaginal bleeding or contractions MARJ SPAULDING MD Feb 18, 2017 14:34
[2017-02-18 14:43] VITALS: BP 108/55
--- NOTE | 2017-02-18 14:57 | Diagnostic Imaging Report ---
INDICATION: Cough and fever. COMPARISON: 03/20/2014. FINDINGS: Single frontal view of the chest demonstrates normal heart size and pulmonary vascularity. The lungs are well aerated and clear. No large pleural effusion or pneumothorax is seen. The visualized osseous structures show no acute abnormalities. IMPRESSION: 1. No acute cardiopulmonary process. Dictated by: Dictated on workstation # [id number]
[2017-02-18 15:21] LABS: BASOPHILS % (AUTO) 0 % (0-10); EOSINOPHILS % (AUTO) 0 % (0-10); LYMPHOCYTES # (AUTO) 0.8 X 10^3 (1.0-4.0); LYMPHOCYTES % (AUTO) 9 % (12-44); MEAN CORPUSCULAR HEMOGLOBIN 26 PG (25-34); MEAN CORPUSCULAR HGB CONC 33 G/DL (32-36); MEAN CORPUSCULAR VOLUME 80 FL (80-99); MEAN PLATELET VOLUME 11.2 FL (7.4-10.4); MONOCYTES # (AUTO) 0.7 X 10^3 (0.0-1.0); MONOCYTES % (AUTO) 8 % (0-12); NEUTROPHILS # (AUTO) 7.3 X 10^3 (1.8-7.8); NEUTROPHILS % (AUTO) 83 % (42-75); PLATELET COUNT 266 10^3/uL (130-400); RED BLOOD COUNT 3.94 10^6/uL (4.35-5.85); RED CELL DISTRIBUTION WIDTH 13.7 % (10.0-14.5); WHITE BLOOD COUNT 8.8 10^3/uL (4.3-11.0)
[2017-02-18 15:38] LABS: ALANINE AMINOTRANSFERASE 10 U/L (0-55); ALBUMIN 3.3 GM/DL (3.2-4.5); ANION GAP 9 MMOL/L (5-14); ASPARTATE AMINO TRANSFERASE 16 U/L (5-34); BILIRUBIN,TOTAL 0.3 MG/DL (0.1-1.0); BLOOD UREA NITROGEN 6 MG/DL (7-18); BUN/CREATININE RATIO 9; CALCIUM 8.1 MG/DL (8.5-10.1); CARBON DIOXIDE 20 MMOL/L (21-32); CHLORIDE 107 MMOL/L (98-107); CREATININE SERUM 0.64 MG/DL (0.60-1.30); GFR ESTIMATED > 60; GLUCOSE 107 MG/DL (70-105); POTASSIUM 3.3 MMOL/L (3.6-5.0); SODIUM 136 MMOL/L (135-145); TOTAL PROTEIN 6.8 GM/DL (6.4-8.2)
[2017-02-18] MEDS ORDERED: CRAN250T2 PO (15:43)
[2017-02-18] MEDS ORDERED: RT-ALBUINH INH (15:43)
[2017-02-18] MEDS ORDERED: DEXT30SU5 PO (15:43)
[2017-02-18] MEDS ORDERED: ACET-2267 PO (15:43)
[2017-02-18] MEDS ORDERED: CALC300T4 PO (15:43)
[2017-02-18] MEDS ORDERED: VIT1TABL75 PO (15:43)
[2017-02-18] MEDS: NS W/KCL 20 MEQ/L 1,000 ML IV SCH ×2 (15:50→23:24)
[2017-02-18 16:00] VITALS: BP 123/70
[2017-02-18 17:03] LABS: BILIRUBIN,URINE NEGATIVE (NEGATIVE); KETONES,URINE 1+ (NEGATIVE); LEUKOCYTE ESTERASE ,URINE 1+ (NEGATIVE); NITRITE,URINE NEGATIVE (NEGATIVE); PH,URINE 6.5 (5-9); PROTEIN,URINE NEGATIVE (NEGATIVE); UROBILINOGEN,URINE NORMAL (NORMAL)
[2017-02-18] MEDS: OSELTAMIVIR 75 MG (TAMIFLU) BOX OF 10 PO SCH (18:15)
[2017-02-18 20:27] VITALS: BP 110/56
[2017-02-18] MEDS ORDERED: OSELTAMIVIR 75 MG (TAMIFLU) BOX OF 10 PO SCH (21:00)
[2017-02-19 00:45] VITALS: BP 109/56
[2017-02-19 04:54] VITALS: BP 109/57
[2017-02-19] MEDS: OSELTAMIVIR 75 MG (TAMIFLU) BOX OF 10 PO SCH (05:54)
[2017-02-19] MEDS: NS W/KCL 20 MEQ/L 1,000 ML IV SCH (05:57)
[2017-02-19 08:00] VITALS: BP 119/70
[2017-02-19] MEDS ORDERED: INFLUENZA TRIvalent 2017-2018 0.5 ML/45 MCG SYR IM ONE (10:45)
[2017-02-19 12:00] VITALS: BP 105/59
[2017-02-19] MEDS ORDERED: OMEP20TA7 PO (12:32)
[2017-02-19] MEDS ORDERED: PROM25TA14 PO (12:33)
[2017-02-19] MEDS ORDERED: OSLT75C PO (12:33)
[2017-02-19] MEDS ORDERED: RT-ALBUINH INH (12:33)
--- NOTE | 2017-02-19 12:35 | Discharge Instructions ---
Discharge [facility] Discharge Medications New, Converted or Re-Newed RX: Transmitted to Pharmacy New Medications: Promethazine HCl (Promethazine Tablet) 25 Mg Tablet 25 MG PO Q6H PRN for NAUSEA/VOMITING, #30 TAB 0 Refills Oseltamivir Phosphate (Tamiflu) 75 Mg Cap 1 CAP PO BID for 5 Days, CAP Continued Medications: Acetaminophen (Tylenol Extra Strength) 500 Mg Tablet 500-1000 MG PO Q6H PRN for PAIN-MILD, TAB Albuterol Sulfate (Proair Hfa) 1 Puff Puff 2 PUFF INH Q6H for Wheezing, #1 INHALER 1 Refill (This prescription has been renewed) Calcium Carbonate (Tums) 300 Mg Tab.chew 300 MG PO QID PRN for INDIGESTION, TAB Omeprazole (Omeprazole) 20 Mg Tablet.dr 20 MG PO DAILY, TAB Vit B Cmplx 3/FA/Vit C/Biotin (Vol-Care Rx Tablet) 1 Each Tablet 1 TAB PO DAILY, TAB Discontinued Medications: Cranberry Fruit Concentrate (Azo Cranberry) 250 Mg Tab.chew 250 MG PO DAILY PRN for URINARY PAIN, TAB Dextromethorphan Polistirex (Delsym) 30 Mg/5 Ml Destinee.er.12h 30 MG PO Q12H PRN for COUGH, ML Patient Instructions Goal/Follow Up Appt: Follow up with Dr. Spaulding as scheduled. Return to The Hospital For: Fever, inability to keep down medications, shortness of breath Activity & Diet Discharge Diet: Eat Small Frequent Meals Activity as Tolerated: Yes Copy Copies To 1: MARJ SPAULDING MD, BETHANY N MD Feb 19, 2017 12:35 pm
[2017-02-19 13:00] VITALS: BP 105/59
[2017-02-19] MEDS ORDERED: RELABEL FOR HOME USE MC SCH (13:15)
[2017-02-19] MEDS ORDERED: OSELTAMIVIR 75 MG (TAMIFLU) BOX OF 10 PO SCH (13:15)
== END 2017-02-19 12:33 | disposition home or self-care (01) ==
LOC: 4TH 14:18 → UNDOADMOB 14:18 → 4TH 14:30 → UNDODISOB 02-19 13:36
PROVIDERS: ADMIT Family Medicine; ATTEND Family Medicine
DX: O99.513 Diseases of the respiratory system complicating pregnancy, third trimester (principal); J09.X2 Influenza due to identified novel influenza A virus with other respiratory manifestations; O99.343 Other mental disorders complicating pregnancy, third trimester; F90.9 Attention-deficit hyperactivity disorder, unspecified type; F32.9 Major depressive disorder, single episode, unspecified; F41.0 Panic disorder [episodic paroxysmal anxiety]; Z3A.32 32 weeks gestation of pregnancy
CPT/HCPCS: 36415; 71010; 80053; 81000; 83605; 85025; 87040; 87088; 99211; G0378

== ENCOUNTER 2017-04-16 19:09 | Inpatient (IN) | payer MEDICAID ==
[~2017-04-16] VITALS: Ht 165.1 cm; Wt 88.1 kg
[~2017-04-16 19:09] MED LIST changes: +ACET-2267 PO; +CALC300T4 PO; +CRAN250T2 PO; +DEXT30SU5 PO; +OMEP20TA7 PO; +OSLT75C PO; +PROM25TA14 PO; +RT-ALBUINH INH; +VIT1TABL75 PO
[2017-04-16 20:00] VITALS: BP 129/61
[2017-04-16] MEDS ORDERED: DINOPROSTONE 10 MG (CERVIDIL) INSERT PV ONE (20:00)
[2017-04-16 20:44] LABS: BASOPHILS % (AUTO) 0 % (0-10); EOSINOPHILS # (AUTO) 0.1 10^3/uL (0.0-0.3); EOSINOPHILS % (AUTO) 1 % (0-10); HEMATOCRIT 33 % (35-52); HEMOGLOBIN 10.5 G/DL (11.5-16.0); LYMPHOCYTES # (AUTO) 2.4 X 10^3 (1.0-4.0); LYMPHOCYTES % (AUTO) 22 % (12-44); MEAN CORPUSCULAR HEMOGLOBIN 24 PG (25-34); MEAN CORPUSCULAR HGB CONC 32 G/DL (32-36); MEAN CORPUSCULAR VOLUME 73 FL (80-99); MEAN PLATELET VOLUME 11.5 FL (7.4-10.4); MONOCYTES % (AUTO) 9 % (0-12); NEUTROPHILS # (AUTO) 7.5 X 10^3 (1.8-7.8); NEUTROPHILS % (AUTO) 69 % (42-75); PLATELET COUNT 301 10^3/uL (130-400); RED BLOOD COUNT 4.44 10^6/uL (4.35-5.85); RED CELL DISTRIBUTION WIDTH 15.5 % (10.0-14.5)
--- NOTE | 2017-04-16 21:17 | History & Physical-OB ---
OB - Chief Complaint & HPI Date/Time Date of Admission: Date of Admission: Apr 16, 2017 at 7:10 pm Time Seen by Provider: 21:12 Chief Complaint/History OB-Reason for Admission/Chief: Induction of Labor Hx : 2 Hx Para: 1 Expected Date of Delivery: Apr 14, 2017 Gestational Age in Weeks: 40 Gestational Age in Days: 2 Indication for induction: post dates Admission Nurse Assessment Rev: Yes History of Labs O+, antibody neg, RI, HIV/hepB/RPR NR. GC/chlamydia neg. 1 hour glucola normal. GBS neg. Allergies and Home Medications Allergies Coded Allergies: dextrose (Unverified Allergy, Mild, 07/27/08) cefotaxime (Verified Allergy, Unknown, 08/26/06) Home Medications Acetaminophen 500 Mg Tablet, 500-1,000 MG PO Q6H PRN for PAIN-MILD, (Reported) Albuterol Sulfate 1 Puff Puff, 2 PUFF INH Q6H, #1 Ref 1 Prescribed by: MARJ VERDUZCO on 02/19/17 1233 Calcium Carbonate 300 Mg Tab.chew, 300 MG PO QID PRN for INDIGESTION, (Reported) Omeprazole 20 Mg Tablet.dr, 20 MG PO DAILY, (Reported) Oseltamivir Phosphate 75 Mg Cap, 1 CAP PO BID for 5 Days Prescribed by: MARJ VERDUZCO on 02/19/17 1233 Promethazine HCl 25 Mg Tablet, 25 MG PO Q6H PRN for NAUSEA/VOMITING, #30 Ref 0 Prescribed by: MARJ VERDUZCO on 02/19/17 1233 Vit B Cmplx 3/FA/Vit C/Biotin 1 Each Tablet, 1 TAB PO DAILY, (Reported) OB - History Hx of Present Care: Yes Ultrasounds: Normal mid trimester US Obstetrical Complications: None Medical Complications: Gastrointestinal (GERD on prilosec), Psychiatric ( multiple BH diagnoses, on fluoxetine briefly, stable off of medication currently ) Obstetrical History Hx : 2 Hx Para: 1 Hx # Term Pregnancies: 1 Hx # Pregnancies: 0 Number of Living Children: 1 Hx Termination: No Hx Multiple Gestation: No Hx Ectopic : No Hx Stillbirth: No Hx Complication: No Hx Induced Hypertens: No Hx Maternal Gestational Diabet: No Hx Hemorrhage: No Delivery History Hx Dystocia: No Hx Forceps Assisted Delivery: No Hx Vacuum Extraction Assisted: No Hx Placenta Abnormality: No Hx Distress: No Hx Large For Gestational Age I: No Hx Small for Gestational Age I: No Hx Section: No Hx Vaginal Delivery Post C-Sec: No Hx Blood Disorders: No Adverse Rxn to Tranfusion: No Patient Past Medical History PMHx: ADHD Depression Panic disorder Tourette's SurgHx: sinus, great toe PSurgHx: Great toe surgery Sinus surgery Social History/Family History HIV/AIDS: No Recent Infectious Disease Expo: No Sexually Transmitted Disease: No Alcohol Use: Denies Use Recreational Drug Use: No Smoking Cessation: Never smoker Immunizations Tetanus Booster (TDap): Less than 5yrs (02/03/17) Rubella: immune RPR/VDRL: Negative GBS Status: Negative HBsAG: Negative OB - Admission Exam Physical Exam HEENT: NCAT Abdomen: Non tender Extremities: Normal Cervical Dilatation: 1cm Effacement: 0% Station: Ballotable Membranes: Intact Heart Rate: 130's Accelerations: Accelerations Present Decelerations: No Decelerations Short Term Variability: Present Intermediate Variability: Average (6-25) Contractions on Admission: None Orellana Scoring Tool (Modified) Dilation (cm): 1-2cm (1) Effacement (%): 0-30% (0) Descent/Station: -3 (0) Cervix Consistency: Soft (2) Cervix Position: Middle/Mid-Position (1) Add 1 point for: Each previous vaginal delivery (1) Subtract 1 point for: Postdate (-1) Labs Laboratory Tests Test 04/16/17 20:17 Range/Units White Blood Count 11.0 4.3-11.0 10^3/uL Red Blood Count 4.44 4.35-5.85 10^6/uL Hemoglobin 10.5 L 11.5-16.0 G/DL Hematocrit 33 L 35-52 % Mean Corpuscular Volume 73 L 80-99 FL Mean Corpuscular Hemoglobin 24 L 25-34 PG Mean Corpuscular Hemoglobin Concent 32 32-36 G/DL Red Cell Distribution Width 15.5 H 10.0-14.5 % Platelet Count 301 130-400 10^3/uL Mean Platelet Volume 11.5 H 7.4-10.4 FL Neutrophils (%) (Auto) 69 42-75 % Lymphocytes (%) (Auto) 22 12-44 % Monocytes (%) (Auto) 9 0-12 % Eosinophils (%) (Auto) 1 0-10 % Basophils (%) (Auto) 0 0-10 % Neutrophils # (Auto) 7.5 1.8-7.8 X 10^3 Lymphocytes # (Auto) 2.4 1.0-4.0 X 10^3 Monocytes # (Auto) 1.0 0.0-1.0 X 10^3 Eosinophils # (Auto) 0.1 0.0-0.3 10^3/uL Basophils # (Auto) 0.0 0.0-0.1 10^3/uL OB - Assessment/Plan/Diagnosis Assessment Assessment: other ( at 40w2d here for IOL, found to have fetus in breech presentation. ) Plan Plan: Section (Discussed possibility of ECV, she would rather proceed with , plan for in the am) Copy Copies To 1: MARJ VERDUZCO MD, BETHANY N MD Apr 16, 2017 9:17 pm
[2017-04-16] MEDS ORDERED: NS IV 1000 ML 1,000 ML IV SCH (22:00)
[2017-04-16] MEDS ORDERED: CATHETER FLUSH 10 ML SYR IV SCH (22:00)
[2017-04-17] MEDS ORDERED: LACTATED RINGERS 1,000 ML IV ONE (05:47)
[2017-04-17] MEDS ORDERED: CITRIC ACID/SOB CIT (BICITRA) 30 ML UDC ONE (06:39)
[2017-04-17] MEDS ORDERED: METOCLOPRAMIDE INJ 10 MG/2 ML (REGLAN) ONE (06:39)
[2017-04-17] MEDS ORDERED: FAMOTIDINE 20MG/2ML IV (PEPCID) ONE (06:40)
[2017-04-17] MEDS ORDERED: ONDANSETRON 4 MG/2 ML (SDV) Z0FRAN ONE (07:00)
[2017-04-17] MEDS ORDERED: KETOROLAC 30 MG/ML VIAL ONE (07:00)
[2017-04-17] MEDS ORDERED: OXYTOCIN/NORMAL SALINE 1,000 ML IV ONE (07:00)
[2017-04-17] MEDS ORDERED: fentaNYL INJECTION 100 MCG/2 ML AMP ONE (07:01)
[2017-04-17] MEDS ORDERED: KETAMINE HCL 100 MG/ML 5 ML VIAL ONE (07:03)
[2017-04-17] MEDS ORDERED: ceFAZolin 2 GM IV Premixed 50 ML ONE (07:05)
--- NOTE | 2017-04-17 07:16 | Consultation ---
History of Present Illness History of Present Illness Patient Consulted On(gerry/time) 04/17/17 07:12 Date Seen by Provider: Apr 17, 2017 Time Seen by Provider: 07:05 Reason for Visit: Induction of labor->C/S History of Present Illness This 31 yo is 40 weeks gestation and presented for induction of labor last night when her fetus was found to be in the breech presentation. Allergies and Home Medications Allergies Coded Allergies: cefotaxime (Verified Allergy, Unknown, 08/26/06) Home Medications Acetaminophen 500 Mg Tablet, 500-1,000 MG PO Q6H PRN for PAIN-MILD, (Reported) Albuterol Sulfate 1 Puff Puff, 2 PUFF INH Q6H, #1 Ref 1 Prescribed by: MARJ VERDUZCO on 02/19/17 1233 Calcium Carbonate 300 Mg Tab.chew, 300 MG PO QID PRN for INDIGESTION, (Reported) Omeprazole 20 Mg Tablet.dr, 20 MG PO DAILY, (Reported) Promethazine HCl 25 Mg Tablet, 25 MG PO Q6H PRN for NAUSEA/VOMITING, #30 Ref 0 Prescribed by: MARJ VERDUZCO on 02/19/17 1233 Vit B Cmplx 3/FA/Vit C/Biotin 1 Each Tablet, 1 TAB PO DAILY, (Reported) Past [id number]-[id number]-[id number] Hx Patient Social History Alcohol Use: Denies Use Number of Drinks Today: 0 Recreational Drug Use: No Smoking Status: Never a Smoker Recent Foreign Travel: No Contact w/Someone Who Travel: No Recent Infectious Disease Expo: No Recent Hopitalizations: No Physical Abuse Screen: No Sexual Abuse: No Immunizations Up To Date Tetanus Booster (TDap): Less than 5yrs (02/03/17) Seasonal Allergies Seasonal Allergies: No Surgeries History of Surgeries: Yes (SINUS SURGERY; RIGHT GREAT TOE FX/SURGERY; URETHRAL DILATION) Surgeries: Bladder Surgery, Orthopedic Respiratory History of Respiratory Disorde: No Cardiovascular History of Cardiac Disorders: No Neurological History of Neurological Disord: Yes (TOURETTE'S ) Reproductive System Hx : 2 Hx Para: 1 Hx Reproductive Disorders: No Sexually Transmitted Disease: No HIV/AIDS: No Female Reproductive Disorders: Denies Genitourinary History of Genitourinary Disor: No Gastrointestinal History of Gastrointestinal Di: Yes Gastrointestinal Disorders: Gastroesophageal Reflux Musculoskeletal History of Musculoskeletal Dis: Yes (RIGHT GREAT TOE FX/SURGERY) Musculoskeletal Disorders: Fractures Endocrine History of Endocrine Disorders: No HEENT History of HEENT Disorders: No Cancer History of Cancer: No Psychosocial History of Psychiatric Problem: Yes (TOURETTE'S) Behavioral Health Disorders: ADD/ADHD, Anxiety, Personality Disorder, Depression Integumentary History of Skin or Integumenta: No Blood Transfusions History of Blood Disorders: No Adverse Reaction to a Blood Tr: No Family Medical History Significant Family History: No Pertinent Family Hx Family Medial History: Hypertension 19 MOTHER Review of Systems-General All Other Systems Reviewed Negative Unless Noted: Yes Physical Exam-General Problems Physical Exam Vital Signs Vital Signs - First Documented 04/16/17 20:00 Temp 89.6 Pulse 112 Resp 16 B/P (MAP) 129/61 (83) Capillary Refill : General Appearance: WD/WN, no apparent distress HEENT: PERRL/EOMI Neck: non-tender Respiratory: lungs clear Cardiovascular: regular rate, rhythm Gastrointestinal: normal bowel sounds Back: no CVA tenderness Neurologic/Psychiatric: normal mood/affect, oriented x 3 Skin: normal color, warm/dry Data Review Labs Laboratory Tests 04/16/17 20:17: White Blood Count 11.0, Red Blood Count 4.44, Hemoglobin 10.5L, Hematocrit 33L, Mean Corpuscular Volume 73L, Mean Corpuscular Hemoglobin 24L, Mean Corpuscular Hemoglobin Concent 32, Red Cell Distribution Width 15.5H, Platelet Count 301, Mean Platelet Volume 11.5H, Neutrophils (%) (Auto) 69, Lymphocytes (%) (Auto) 22 , Monocytes (%) (Auto) 9, Eosinophils (%) (Auto) 1, Basophils (%) (Auto) 0, Neutrophils # (Auto) 7.5, Lymphocytes # (Auto) 2.4, Monocytes # (Auto) 1.0, Eosinophils # (Auto) 0.1, Basophils # (Auto) 0.0 Assessment/Plan Assessment/Plan Assessment/Plan Assessment: 31 yo @ 40 weeks gestation Breech presentation Plan: Discussed with patient ECV, however risk involved lead patient to opt to proceed with PLTCS. Risk of procedure discussed with the patient in detail. After all questions were answered the consent to proceed was obtained and patient was taken to the OR. Clinical Quality Measures DVT/VTE Risk/Contraindication: Risk Factor Score Per Nursin RFS Level Per Nursing on Admit: 1=Low/No VTE PPX LIA PONCE DO Apr 17, 2017 7:16 am
[2017-04-17] MEDS ORDERED: OXYTOCIN/NORMAL SALINE 500 ML IV SCH (07:17)
--- NOTE | 2017-04-17 07:20 | Discharge Inst-Women's Service ---
Discharge Inst-Women's Serv Depart Medication/Instructions New, Converted or Re-Newed RX: RX on Chart Consults/Follow Up Additional Follow Up: Yes Orders/Referrals Dr. Ponce in 7-[address] Spaulding in 6 weeks Activity Activity: Activity as Tolerated Driving Instructions: No Driving for 1 Week NO SMOKING: NO SMOKING Nothing Inside Vagina: No Douching, No [place], No Tampons Diet Discharge Diet: No Restrictions Symptoms to Report to : Bleeding Excessive, Pain Increased, Fever Over 101 Degrees F, Vaginal Bleeding Increase, Questions/Concerns For Any Problems or Questions: Contact Your Physician Skin/Wound Care Infection Signs and Symptoms: Increased Redness, Foul Odor of Wound, Increased Drainage, Skin Itchy or Has a Rash, Increased Swelling, Temperature Above 101 F Operative Area Clean and Dry: Keep Incision Clean/Dry Stitches/Mary/Dermabond: Dermabond, Care of Stitches Bathing Instructions: Shower (x 2 weeks) LIA PONCE DO Apr 17, 2017 7:20 am
[2017-04-17] MEDS ORDERED: ACHD5005 PO (07:21)
[2017-04-17] MEDS ORDERED: DOCU100C37 PO (07:21)
[2017-04-17] MEDS ORDERED: IBUP-1773 PO (07:21)
[2017-04-17] MEDS ORDERED: INFLUENZA TRIvalent 2017-2018 0.5 ML/45 MCG SYR IM ONE (07:30)
[2017-04-17] MEDS ORDERED: KETOROLAC 30 MG/ML VIAL IVP SCH (07:30)
[2017-04-17] MEDS ORDERED: MEASLES,MUMPS,RUBELLA 1 EA INJ SC SCH (07:30)
[2017-04-17] MEDS ORDERED: TETANUS,DIPTH,PERTUSS P/F (BOOSTRIX) 0.5 ML VIAL IM SCH (07:30)
[2017-04-17] MEDS ORDERED: HYDROmorphone (DILAUDID) 2 MG/ML VIAL IVP PRN (07:30)
[2017-04-17] MEDS ORDERED: ONDANSETRON 4 MG/2 ML (SDV) Z0FRAN IVP PRN (07:30)
[2017-04-17] MEDS ORDERED: PHENYLEPHRINE 100 MCG/ML 10 ML (ANESTHESIA) SYR ONE (08:16)
--- NOTE | 2017-04-17 10:40 | OPERATIVE REPORT ---
DATE OF SERVICE: PREOPERATIVE DIAGNOSES: 1. A 31-year-old G2, P1 at 40 weeks gestation. 2. Breech presentation. POSTOPERATIVE DIAGNOSES: 1. A 31-year-old G2, P1 at 40 weeks gestation. 2. Breech presentation. 3. True knot in the cord. PROCEDURE: Primary low transverse section. SURGEON: Rodri Anthony DO COLOR BUFFER: Holly DAHL ANESTHESIA: Spinal. ESTIMATED BLOOD LOSS: 700 mL. URINE OUTPUT: 75 mL clear at the end of the procedure. FLUIDS: 1500 mL lactated Ringer solution. FINDINGS: A live female infant weighing 7 pounds 9 ounces, Apgars of 8 and 9. Grossly normal appearing bilateral fallopian tubes and ovaries with a true knot noted in the cord. INDICATIONS FOR PROCEDURE: This 31-year-old female who was the patient admitted last night for induction of labor and was found to be in the breech presentation. She had just eaten and was kept overnight due to n.p.o. status and not emergent need for delivery. Overnight, she did not contract. This morning, when I came in and discussed with the patient indication for , I also discussed external cephalic version; however, the patient did not deem the risk to the infant acceptable and wished to proceed with delivery. Risk of was reviewed with the patient and her in detail including risk of bleeding, infection, damage to any surrounding structures including but not limited to bowel, bladder, ureter kidneys, risk for hysterectomy, loss of fertility, risk from anesthesia, need for possible reoperation, if anything should be damaged during the procedure and even was discussed with the patient. After everything was discussed, consent was obtained and the patient was taken to the operating room. OPERATIVE REPORT IN DETAIL: Once in the operating room, spinal analgesia was found to be adequate. She was placed in the supine position with leftward tilt, prepped and draped in normal sterile fashion. A timeout was performed. A Pfannenstiel skin incision was then made with a knife and carried down to the underlying fascia using Bovie cautery. The fascial incision was extended laterally using Bovie cautery. Superior aspect of fascial incision was then grasped with Chuy clamps, tented up and dissected off the underlying rectus muscles. The inferior aspect of the fascial incision was then grasped with Chuy clamps, tented upward and dissected off the underlying rectus muscles. The rectus muscle was then dissected down the midline using blunt traction and Smith scissors, which exposed the peritoneum, which I entered bluntly and extended using blunt traction. An Manjit ring retractor was then placed within the peritoneal incision, which offers excellent lateral sidewall retraction. I did make a low transverse incision through the vesicouterine peritoneum and bluntly dissected this off of the lower uterine segment. I then proceeded with myotomy until membranes were visualized, at which point I extended the uterine incision laterally and superiorly using bandage scissors. Amniotomy was performed during this process and clear fluid was noted. The was found in the alexsandra breech presentation, I elevated the infant's buttocks up to the incision and it was delivered through the incision up to the waist, where the legs were then reduced. The right arm comes out as it is already flexed across the body, the left arm has to be swept across the body and then with extension of the body and flexion of the head, the infant was delivered through the incision, where it was bulb suctioned both nares and oropharynx. The cord was doubly clamped and cut, and was handed off to Dr. Spaulding who was present for delivery. Cord blood was collected, 3-vessel cord with intact placenta was delivered spontaneously thereafter. IV Pitocin was initiated to facilitate uterine contraction. Uterine fundus became firmer with bimanual massage. The uterus was then exteriorized and cleared of all endometrial clots and debris. I then proceeded with closing the uterine incision using 0 Vicryl suture in running locked fashion. A second layer of imbricating 0 Monocryl was placed. Excellent hemostasis was noted after doing so. I then placed the uterus back within the pelvis and copiously irrigated the pelvis using normal saline. Once again, there was no active bleeding noted from any of my dissection planes. I then proceeded with placing Interceed antiadhesive over my low transverse incision and closed the peritoneum using 3-0 Vicryl suture in running fashion. The rectus muscles were reapproximated using 3-0 Vicryl suture in interrupted fashion. The fascia was reapproximated using 0 Vicryl stitch in a running fashion. The subcutaneous tissue was reapproximated using 3-0 plain in an interrupted subcutaneous stitch and the skin was reapproximated using 4-0 Monocryl running subcuticular. Dermabond was applied to incision. Sterile dressing with adhesive white tape. The patient tolerated the procedure well and sent to the recovery area in stable condition with Horton catheter still in place. Lap and sponge counts were correct at the end of the procedure. Instrument count was correct as well. Two grams of Ancef were given preoperatively for infection prophylaxis. Job ID: [id number] DocumentID: [id number] Dictated Date: 04/17/2017 08:23:39 Vp Medical Date: 04/17/2017 10:40:12 Dictated By: DO SARA CANSECO
[2017-04-17] MEDS: HYDROcodone/APAP 5 MG/325 MG (LORTAB) TAB PO PRN ×2 (11:01→18:25)
[2017-04-17 12:00] VITALS: BP 110/60
[2017-04-17] MEDS ORDERED: CATHETER FLUSH 10 ML SYR IV SCH (14:00)
[2017-04-17] MEDS ORDERED: IBUPROFEN 600 MG (MOTRIN) TAB PO ONE ×2 (14:30→22:18)
[2017-04-17] MEDS: IBUPROFEN 600 MG (MOTRIN) TAB PO SCH ×2 (14:37→22:23)
[2017-04-17 16:00] VITALS: BP 100/62
[2017-04-17 21:00] VITALS: BP 118/74
[2017-04-17] MEDS: DOCUSATE SODIUM 100 MG (COLACE) CAP PO SCH (22:22)
[2017-04-18] MEDS: HYDROcodone/APAP 5 MG/325 MG (LORTAB) TAB PO PRN ×2 (00:55→13:25)
[2017-04-18 01:18] VITALS: BP 123/77
[2017-04-18 04:30] VITALS: BP 123/77
[2017-04-18 06:36] LABS: BASOPHILS % (AUTO) 0 % (0-10); EOSINOPHILS # (AUTO) 0.1 10^3/uL (0.0-0.3); EOSINOPHILS % (AUTO) 1 % (0-10); HEMATOCRIT 31 % (35-52); HEMOGLOBIN 9.7 G/DL (11.5-16.0); LYMPHOCYTES # (AUTO) 2.1 X 10^3 (1.0-4.0); LYMPHOCYTES % (AUTO) 21 % (12-44); MEAN CORPUSCULAR HEMOGLOBIN 24 PG (25-34); MEAN CORPUSCULAR HGB CONC 31 G/DL (32-36); MEAN CORPUSCULAR VOLUME 75 FL (80-99); MONOCYTES # (AUTO) 0.9 X 10^3 (0.0-1.0); MONOCYTES % (AUTO) 9 % (0-12); NEUTROPHILS % (AUTO) 69 % (42-75); PLATELET COUNT 265 10^3/uL (130-400); RED BLOOD COUNT 4.13 10^6/uL (4.35-5.85); RED CELL DISTRIBUTION WIDTH 15.7 % (10.0-14.5); WHITE BLOOD COUNT 10.1 10^3/uL (4.3-11.0)
[2017-04-18] MEDS: IBUPROFEN 600 MG (MOTRIN) TAB PO SCH ×4 (06:54→23:57)
[2017-04-18] MEDS: DOCUSATE SODIUM 100 MG (COLACE) CAP PO SCH ×2 (08:21→21:36)
[2017-04-18 08:30] VITALS: BP 124/74
--- NOTE | 2017-04-18 10:48 | Progress Note-Standard ---
Standard Progress Note Progress Notes/Assess & Plan Date Seen by Provider: Apr 18, 2017 Time Seen by Provider: 10:46 Progress/Assessment & Plan This patient is without complaints she is ambulating, voiding, tolerating oral intake well, has good pain control. She denies chest pain, denies shortness of breath, denies nausea vomiting, and denies headache. Vital Signs Date Time Temp Pulse Resp B/P (MAP) Pulse Ox O2 Delivery O2 Flow Rate FiO2 04/18/17 04:30 98.3 89 20 123/77 (92) 99 Room Air 04/18/17 01:18 98.3 89 16 123/77 (92) 99 Room Air 04/17/17 21:00 98.0 84 18 118/74 (89) 98 Room Air 04/17/17 16:00 98.2 84 18 100/62 (75) 99 04/17/17 12:00 98.2 90 16 110/60 (77) 99 I & O 04/18/17 07:00 Intake Total 2450 ml Output Total 1925 ml Balance 525 ml Vital signs are stable. Patient is afebrile. The abdomen is benign. Extremities show no clubbing cyanosis. There is some pretibial pitting edema that is likely normal. There is no Homans sign. Assessment and plan patient is postoperative day number 1 status post a primary by Dr. Anthony due to breech presentation. She is doing well. Plan is for routine convalescence care IGNACIO TERRY MD Apr 18, 2017 10:47 am
[2017-04-18 12:30] VITALS: BP 126/79
[2017-04-18] MEDS: POLYETHYLENE GLYCOL 17 GM (MIRALAX) PACK PO SCH ×2 (13:26→21:36)
[2017-04-18 17:30] VITALS: BP 113/70
[2017-04-18 21:10] VITALS: BP 127/77
[2017-04-19] VITALS: BP 114/58
[2017-04-19 05:00] VITALS: BP 125/78
[2017-04-19] MEDS: IBUPROFEN 600 MG (MOTRIN) TAB PO SCH ×2 (06:00→11:38)
[2017-04-19 08:15] VITALS: BP 129/76
[2017-04-19] MEDS: DOCUSATE SODIUM 100 MG (COLACE) CAP PO SCH (08:29)
[2017-04-19] MEDS: POLYETHYLENE GLYCOL 17 GM (MIRALAX) PACK PO SCH (08:29)
--- NOTE | 2017-04-19 10:03 | Progress Note-Standard ---
Standard Progress Note Progress Notes/Assess & Plan Date Seen by Provider: Apr 19, 2017 Time Seen by Provider: 10:02 Progress/Assessment & Plan This patient is without complaints she is ambulating, voiding, tolerating oral intake well, has good pain control. She denies chest pain, denies shortness of breath, denies nausea vomiting, and denies headache. Vital Signs Date Time Temp Pulse Resp B/P (MAP) Pulse Ox O2 Delivery O2 Flow Rate FiO2 04/18/17 04:30 98.3 89 20 123/77 (92) 99 Room Air 04/18/17 01:18 98.3 89 16 123/77 (92) 99 Room Air 04/17/17 21:00 98.0 84 18 118/74 (89) 98 Room Air 04/17/17 16:00 98.2 84 18 100/62 (75) 99 04/17/17 12:00 98.2 90 16 110/60 (77) 99 I & O 04/18/17 07:00 Intake Total 2450 ml Output Total 1925 ml Balance 525 ml Vital signs are stable. Patient is afebrile. The abdomen is benign. Extremities show no clubbing cyanosis. There is some pretibial pitting edema that is likely normal. There is no Homans sign. Assessment and plan patient is postoperative day number 1 status post a primary by Dr. Anthony due to breech presentation. She is doing well. Plan is for routine convalescence care April 19, 2014 Patient without complaint. She is ambulating, voiding, tolerating by mouth, has good pain control. Patient denies chest pain, denies shortness breath, denies nausea vomiting, denies headache. Patient is requesting discharge home. Vital Signs Date Time Temp Pulse Resp B/P (MAP) Pulse Ox O2 Delivery O2 Flow Rate FiO2 04/19/17 08:15 99.8 99 18 129/76 (93) 98 Room Air 04/19/17 05:00 97.9 105 24 125/78 (94) 99 Room Air 04/19/17 00:00 98.5 90 24 114/58 (76) 98 Room Air 04/18/17 21:10 98.6 96 24 127/77 (94) 99 Room Air 04/18/17 17:30 99.2 97 18 113/70 (84) 97 Room Air 04/18/17 12:30 98.2 110 20 126/79 (95) 98 Room Air I & O 04/19/17 07:00 Intake Total 2780 ml Output Total 1500 ml Balance 1280 ml Vital signs are stable. Patient is afebrile. The abdomen is benign. Extremities show clubbing cyanosis. There is no Homans sign. There is some pretibial pitting edema that is normal. Assessment and plan postoperative day number 2 status post primary delivery secondary to breech presentation. Plan is for discharge home with follow-up in clinic Final Diagnosis Term primary delivery due to breech presentation IGNACIO TERRY MD Apr 19, 2017 10:03 am
[2017-04-19 13:30] VITALS: BP 129/76
== END 2017-04-19 13:30 | disposition home or self-care (01) | DRG 766 ==
LOC: WSo 19:09 → LDRP 19:10
PROVIDERS: ADMIT Family Medicine; ATTEND Family Medicine
PROC: 10D00Z1 Extraction of Products of Conception, Low, Open Approach (ICD-10-PCS; principal; 2017-04-17 07:25)
DX: O32.1XX0 Maternal care for breech presentation, not applicable or unspecified (principal); O48.0 Post-term pregnancy; O69.2XX0 Labor and delivery complicated by other cord entanglement, with compression, not applicable or unspecified; O99.62 Diseases of the digestive system complicating childbirth; K21.9 Gastro-esophageal reflux disease without esophagitis; Z37.0 Single live birth; Z3A.40 40 weeks gestation of pregnancy
CPT/HCPCS: 36415; 85025; 86850; 86900; 86901; 94664

== ENCOUNTER 2020-01-05 19:12 | Emergency (ER) | payer BC, MEDICAID ==
[~2020-01-05] VITALS: Ht 165 cm; Wt 75.0 kg
[~2020-01-05 19:12] MED LIST changes: +ACHD5005 PO; +DOCU100C37 PO; +IBUP-1773 PO
[2020-01-05] MEDS ORDERED: LORazepam INJ 2 MG/ML (ATIVAN) VIAL IVP PRN (19:30)
--- NOTE | 2020-01-05 19:34 | ED General ---
General Chief Complaint: Psych/Social Disorder Stated Complaint: PRESSURE IN HEAD/FEELING LIKE SHE IS DYING Source of Information: Patient Exam Limitations: No Limitations History of Present Illness Date Seen by Provider: Jan 05, 2020 Time Seen by Provider: 19:32 Initial Comments To ER accompanied by mother with reports of pressure in her head. She has a lifelong history of panic attacks but this feels different. She is taking nothing for anxiety currently. She feels that she gets pressure in her head and its as if she could take a needle and pop it. She feels like she is "being pul led down by gravity". No unilateral arm or leg weakness. Does have worsening vision about 1 year ago that required glasses. She follows with Jasmyne Luciano though she lives in [place]. She was told she might have a pituitary tumor. She is scheduled for an MRI in [place] next week. She comes in today tearful. Mother is with her, very anxious and upset with staff that she cannot come back to the room with her daughter. Mother Believes the Covid policies are "a sham", removes her mask and refuses to leave waiting room initially. Timing/Duration: 1-2 Days Severity: Moderate Associated Systoms: Denies Symptoms, Weakness Allergies and Home Medications Allergies Coded Allergies: cefotaxime (Verified Allergy, Unknown, 08/26/06) Home Medications Acetaminophen 500 Mg Tablet, 500-1,000 MG PO Q6H PRN for PAIN-MILD, (Reported) Albuterol Sulfate 1 Puff Puff, 2 PUFF INH Q6H Prescribed by: MARJ VERDUZCO on 02/19/17 1233 Calcium Carbonate 300 Mg Tab.chew, 300 MG PO QID PRN for INDIGESTION, (Reported) Docusate Sodium 100 Mg Capsule, 100 MG PO BID PRN for CONSTIPATION-1ST LINE Prescribed by: LIA PONCE on 04/17/17 0721 Hydrocodone Bit/Acetaminophen 1 Tab Tab, 1-2 TAB PO Q4H PRN for PAIN-MODERATE Prescribed by: LIA PONCE on 04/17/17 0721 Ibuprofen 600 Mg Tablet, 600 MG PO Q6H Prescribed by: LIA PONCE on 04/17/17 0721 Omeprazole 20 Mg Tablet.dr, 20 MG PO DAILY, (Reported) Promethazine HCl 25 Mg Tablet, 25 MG PO Q6H PRN for NAUSEA/VOMITING Prescribed by: MARJ VERDUZCO on 02/19/17 1233 Vit B Cmplx 3/FA/Vit C/Biotin 1 Each Tablet, 1 TAB PO DAILY, (Reported) Patient Home Medication List Home Medication List Reviewed: Yes Review of Systems Review of Systems Constitutional: see HPI EENTM: see HPI Respiratory: no symptoms reported Cardiovascular: no symptoms reported Genitourinary: no symptoms reported Musculoskeletal: no symptoms reported Skin: no symptoms reported Psychiatric/Neurological: See HPI, Headache Hematologic/Lymphatic: No Symptoms Reported Past Lrveqtq-Ylkjkd-Atpsac Hx Patient Social History Recent Foreign Travel: No Contact w/Someone Who Travel: No Recent Hopitalizations: No Immunizations Up To Date Tetanus Booster (TDap): Less than 5yrs Seasonal Allergies Seasonal Allergies: No Past Medical History Surgeries: Yes (SINUS SURGERY; RIGHT GREAT TOE FX/SURGERY; URETHRAL DILATION) Bladder Surgery, Orthopedic Respiratory: No Cardiac: No Neurological: Yes (TOURETTE'S ) Reproductive Disorders: No Female Reproductive Disorders: Denies Sexually Transmitted Disease: No HIV/AIDS: No Genitourinary: No Gastrointestinal: Yes Gastroesophageal Reflux Musculoskeletal: Yes (RIGHT GREAT TOE FX/SURGERY) Fractures Endocrine: No HEENT: No Cancer: No Psychosocial: Yes (TOURETTE'S) ADD/ADHD, Anxiety, Personality Disorder, Depression Integumentary: No Blood Disorders: No Adverse Reaction/Blood Tranf: No Family Medical History Hypertension 19 MOTHER No Pertinent Family Hx Physical Exam Vital Signs Vital Signs - First Documented 01/05/20 19:39 Temp 36.9 Pulse 119 Resp 18 B/P (MAP) 155/90 (111) Capillary Refill : Height, Weight, BMI Height: 5'5.00" Weight: 194lbs. 2.0oz. 88.785698nj; 32.3 BMI Method:Stated General Appearance: No Apparent Distress, WD/WN, Anxious Eyes: Bilateral Eye Normal Inspection, Bilateral Eye PERRL, Bilateral Eye EOMI Neck: Full Range of Motion, Normal Inspection Respiratory: No Accessory Muscle Use, No Respiratory Distress Cardiovascular: Regular Rate, Rhythm, Normal Peripheral Pulses Gastrointestinal: Non Tender, Soft Extremity: Normal Capillary Refill, Normal Inspection Neurologic/Psychiatric: Alert, Oriented x3 Skin: Normal Color, Warm/Dry Procedures/Interventions Suture Size: 4-0 Progress/Results/Core Measures Suspected Sepsis SIRS Temperature: Pulse: Respiratory Rate: Laboratory Tests 01/05/20 19:25: White Blood Count 8.3 Blood Pressure / Mean: Laboratory Tests 01/05/20 19:25: Creatinine 0.91, Platelet Count 318, Total Bilirubin 0.2 Results/Orders Lab Results Laboratory Tests Test 01/05/20 19:25 Range/Units White Blood Count 8.3 4.3-11.0 10^3/uL Red Blood Count 4.87 3.80-5.11 10^6/uL Hemoglobin 14.0 11.5-16.0 g/dL Hematocrit 43 35-52 % Mean Corpuscular Volume 88 80-99 fL Mean Corpuscular Hemoglobin 29 25-34 pg Mean Corpuscular Hemoglobin Concent 33 32-36 g/dL Red Cell Distribution Width 13.1 10.0-14.5 % Platelet Count 318 130-400 10^3/uL Mean Platelet Volume 11.0 9.0-12.2 fL Immature Granulocyte % (Auto) 0 % Neutrophils (%) (Auto) 70 42-75 % Lymphocytes (%) (Auto) 21 12-44 % Monocytes (%) (Auto) 8 0-12 % Eosinophils (%) (Auto) 0 0-10 % Basophils (%) (Auto) 0 0-10 % Neutrophils # (Auto) 5.8 1.8-7.8 10^3/uL Lymphocytes # (Auto) 1.8 1.0-4.0 10^3/uL Monocytes # (Auto) 0.7 0.0-1.0 10^3/uL Eosinophils # (Auto) 0.0 0.0-0.3 10^3/uL Basophils # (Auto) 0.0 0.0-0.1 10^3/uL Immature Granulocyte # (Auto) 0.0 0.0-0.1 10^3/uL Sodium Level 138 135-145 MMOL/L Potassium Level 4.1 3.6-5.0 MMOL/L Chloride Level 104 98-107 MMOL/L Carbon Dioxide Level 21 21-32 MMOL/L Anion Gap 13 5-14 MMOL/L Blood Urea Nitrogen 10 7-18 MG/DL Creatinine 0.91 0.60-1.30 MG/DL Estimat Glomerular Filtration Rate > 60 BUN/Creatinine Ratio 11 Glucose Level 125 H 70-105 MG/DL Calcium Level 9.2 8.5-10.1 MG/DL Corrected Calcium 9.0 8.5-10.1 MG/DL Total Bilirubin 0.2 0.1-1.0 MG/DL Aspartate Amino Transf (AST/SGOT) 17 5-34 U/L Alanine Aminotransferase (ALT/SGPT) 16 0-55 U/L Alkaline Phosphatase 75 40-136 U/L Total Protein 8.1 6.4-8.2 GM/DL Albumin 4.3 3.2-4.5 GM/DL Thyroid Stimulating Hormone (TSH) 0.85 0.35-4.94 UIU/ML Free Thyroxine 0.85 0.70-1.48 NG/DL Serum Test, Qualitative NEGATIVE NEGATIVE My Orders Orders - TJ LOPEZ APRN Cbc With Automated Diff (01/05/20 19:27) Comprehensive Metabolic Panel (01/05/20 19:27) Thyroid Stimulating Hormone (01/05/20 19:27) Free T4 (Free Thyroxine) (01/05/20 19:27) Ed Iv/Invasive Line Start (01/05/20 19:27) Ct Head Wo (01/05/20 19:27) Lorazepam Injection (Ativan Injection) (01/05/20 19:30) Hcg,Qualitative Serum (01/05/20 19:36) Medications Given in ED Current Medications Medications Dose Ordered Sig/Morris Route Start Time Stop Time Status Last Admin Dose Admin Lorazepam 1 mg ONCE PRN IVP 01/05/20 19:30 01/05/20 19:36 1 MG Vital Signs/I&O 01/05/20 19:39 Temp 36.9 Pulse 119 Resp 18 B/P (MAP) 155/90 (111) Capillary Refill : Diagnostic Imaging Diagonstic Imaging: CT Comments NAME: GEOVANNI DEAN [facility] REC#: [id number] PT STATUS: REG ER : 1985 PHYSICIAN: TJ LOPEZ APRN ADMIT DATE: 01/05/20/ER Draft Date of Exam:01/05/20 CT HEAD WO PROCEDURE: CT head without contrast. TECHNIQUE: Multiple contiguous axial images were obtained through the brain without the use of intravenous contrast. Auto Exposure Controls were utilized during the CT exam to meet ALARA standards for radiation dose reduction. DATE: January 05, 2020. COMPARISON: CT head July 28, 2008. INDICATION: 34-year-old female, headaches. Potential pituitary tumor. FINDINGS: There does appear to be a near empty sella. There is no hydrocephalus. There is no mass effect or midline shift. There is no acute intracranial hemorrhage. There is no abnormal extra-axial fluid collection. The visualized portions of the paranasal sinuses, mastoid air cells and middle ears are well aerated. IMPRESSION: 1. No identified acute intracranial abnormality. 2. There does appear to be a near empty sella. Dictated on workstation # [id number] Dict: 01/05/201955 Trans: 01/05/202020 PJE [id number] Interpreted by: EPHRAIM CLARK MD Electronically signed by: Departure Impression Primary Impression: General medical exam Additional Impression: Anxiety Disposition: 01 HOME, SELF-CARE Condition: Stable Departure-Patient Inst. Decision time for Depature: 19:51 Referrals: MARJ VERDUZCO MD (PCP) Primary Care Physician Patient Instructions: Anxiety, Adult (DC) Add. Discharge Instructions: Return ER for any concerns. Keep your appointment for the MRI next week. You should discuss starting something for anxiety with your primary healthcare provider in the meantime. Your CT does show appearance of an empty sella which can affect pituitary gland function but IS NOT a tumor. All discharge instructions reviewed with patient and/or family. Voiced understanding. Copy Copies To 1: KEERTHI LUCIANO PETER J APRN Jan 05, 2020 19:34
[2020-01-05 19:35] LABS: BASOPHILS % (AUTO) 0 % (0-10); EOSINOPHILS % (AUTO) 0 % (0-10); HEMATOCRIT 43 % (35-52); LYMPHOCYTES # (AUTO) 1.8 10^3/uL (1.0-4.0); LYMPHOCYTES % (AUTO) 21 % (12-44); MEAN CORPUSCULAR HEMOGLOBIN 29 pg (25-34); MEAN CORPUSCULAR HGB CONC 33 g/dL (32-36); MEAN CORPUSCULAR VOLUME 88 fL (80-99); MONOCYTES # (AUTO) 0.7 10^3/uL (0.0-1.0); MONOCYTES % (AUTO) 8 % (0-12); NEUTROPHILS # (AUTO) 5.8 10^3/uL (1.8-7.8); NEUTROPHILS % (AUTO) 70 % (42-75); PLATELET COUNT 318 10^3/uL (130-400); WHITE BLOOD COUNT 8.3 10^3/uL (4.3-11.0)
[2020-01-05 19:42] LABS: ALBUMIN 4.3 GM/DL (3.2-4.5); CHLORIDE 104 MMOL/L (98-107)
[2020-01-05 19:43] LABS: POTASSIUM 4.1 MMOL/L (3.6-5.0); SODIUM 138 MMOL/L (135-145)
[2020-01-05 19:44] LABS: CALCIUM 9.2 MG/DL (8.5-10.1)
[2020-01-05 19:45] LABS: GLUCOSE 125 MG/DL (70-105); TOTAL PROTEIN 8.1 GM/DL (6.4-8.2)
[2020-01-05 19:46] LABS: CARBON DIOXIDE 21 MMOL/L (21-32)
[2020-01-05 19:47] LABS: BILIRUBIN,TOTAL 0.2 MG/DL (0.1-1.0)
[2020-01-05 19:48] LABS: ALKALINE PHOSPHATASE 75 U/L (40-136)
[2020-01-05 19:49] LABS: CREATININE SERUM 0.91 MG/DL (0.60-1.30); GFR ESTIMATED > 60
[2020-01-05 19:50] LABS: BUN/CREATININE RATIO 11
[2020-01-05 19:51] LABS: ALANINE AMINOTRANSFERASE 16 U/L (0-55)
[2020-01-05 20:12] LABS: FREE T4 (FREE THYROXINE) 0.85 NG/DL (0.70-1.48)
--- NOTE | 2020-01-05 20:21 | Diagnostic Imaging Report ---
PROCEDURE: CT head without contrast. TECHNIQUE: Multiple contiguous axial images were obtained through the brain without the use of intravenous contrast. Auto Exposure Controls were utilized during the CT exam to meet ALARA standards for radiation dose reduction. DATE: January 05, 2020. COMPARISON: CT head July 28, 2008. INDICATION: 34-year-old female, headaches. Potential pituitary tumor. FINDINGS: There does appear to be a near empty sella. There is no hydrocephalus. There is no mass effect or midline shift. There is no acute intracranial hemorrhage. There is no abnormal extra-axial fluid collection. The visualized portions of the paranasal sinuses, mastoid air cells and middle ears are well aerated. IMPRESSION: 1. No identified acute intracranial abnormality. 2. There does appear to be a near empty sella. Dictated by: Dictated on workstation # [id number]
[2020-01-05 20:36] VITALS: BP 140/90
== END 2020-01-05 20:38 | disposition home or self-care (01) ==
LOC: EDUNIT# 19:12 → ER 19:15
DX: F41.9 Anxiety disorder, unspecified (principal); K21.9 Gastro-esophageal reflux disease without esophagitis; Z82.49 Family history of ischemic heart disease and other diseases of the circulatory system; Z88.1 Allergy status to other antibiotic agents
CPT/HCPCS: 36415; 70450; 80053; 84439; 84443; 84703; 85025

== ENCOUNTER 2020-03-07 14:00 | Outpatient (RCR) | payer BC, MEDICAID | END 2020-06-05 | disposition home or self-care (01) | LOC: CARD 14:00 | PROVIDERS: ATTEND Nurse Practitioner Family | DX: R00.2 Palpitations (principal) | CPT/HCPCS: 93225; 93226 ==

== ENCOUNTER 2020-03-18 23:53 | Emergency (ER) | payer OTHER, MEDICAID ==
[~2020-03-18] VITALS: Ht 165.1 cm; Wt 84.8 kg
--- NOTE | 2020-03-19 00:54 | NUR ---
FAX TO [facility] FOR MRI RESULTS
--- NOTE | 2020-03-19 00:55 | ED General ---
General Chief Complaint: Psych/Social Disorder Stated Complaint: ANXIETY Nursing Triage Note: ARRIVES VIA EMS TO ROOM 5 BY AMBULATION. PATIENT IS ALERT AND ORIENTED X4 AND GOOD HISTORIAN. C/O FEELING OF ANXIETY THAT BEGAN WHILE SLEEPING, REMEMBERS FEELING A "ZAP" IN HER LEFT SHOULDER/NECK AREA. DESCRIBES FEELING SHAKEY AND FLET THOUGH HER BODY WAS SHUTTING DOWN THEN WOKE THINKING SHE WAS GOING TO . Nursing Sepsis Screen: No Definite Risk Source of Information: Patient Exam Limitations: No Limitations (ZAYRA RUSSO) History of Present Illness Date Seen by Provider: Mar 19, 2020 Time Seen by Provider: 00:01 Initial Comments 34 Female presents to ED via EMS for anxiety and feeling like she is going to after waking up from sleep. She states she felt a "zap" in her left chest area earlier in the night stating she then took her prescribed 0.5mg of Xanax and went to bed along with her anti-acid medication. She woke up about an hour later feeling tingling and odd sensations in her left chest, neck and left arm as well as panicked feeling like she was going to . She states that the sensation feels like "after you get shocked by electricity". She reports some shortness of breath pulling her mask down periodically to catch her breath. She denies what she called "typical pain" further described as sharp or aching. She was speaking very rapidly. She reports having breast reduction surgery 3 weeks ago and finished a course of antibiotics today due to poor wound healing from the infection. She denies any fever, chills, or pain around the incisions currently. 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 She states that she has been really anxious and unsure about her symptoms due to not k nowing if it was her pituitary or something else. She reports being on Abilify until about 1 week ago and states she was prescribed Zoloft, but has not started taking it yet. She also reports a history of high heart rate that she was prescribed Propranolol, but she stopped taking it 2 days ago because it made her to dizzy to stand or walk. She denies any trouble urinating, abdominal pain. Severity: Mild (ZAYRA RUSSO) Allergies and Home Medications Allergies Coded Allergies: cefotaxime (Verified Allergy, Unknown, 03/19/20) Home Medications Acetaminophen 500 Mg Tablet, 500-1,000 MG PO Q6H PRN for PAIN-MILD, (Reported) Albuterol Sulfate 1 Puff Puff, 2 PUFF INH Q6H Prescribed by: MARJ VERDUZCO on 02/19/17 1233 Calcium Carbonate 300 Mg Tab.chew, 300 MG PO QID PRN for INDIGESTION, (Reported) Docusate Sodium 100 Mg Capsule, 100 MG PO BID PRN for CONSTIPATION-1ST LINE Prescribed by: LIA PONCE on 04/17/17 07 Hydrocodone Bit/Acetaminophen 1 Tab Tab, 1-2 TAB PO Q4H PRN for PAIN-MODERATE Prescribed by: LIA PONCE on 04/17/17720 Ibuprofen 600 Mg Tablet, 600 MG PO Q6H Prescribed by: LIA PONCE on 04/17/17720 Omeprazole 20 Mg Tablet.dr, 20 MG PO DAILY, (Reported) Promethazine HCl 25 Mg Tablet, 25 MG PO Q6H PRN for NAUSEA/VOMITING Prescribed by: MARJ VERDUZCO on 02/19/17 1233 Vit B Cmplx 3/FA/Vit C/Biotin 1 Each Tablet, 1 TAB PO DAILY, (Reported) Patient Home Medication List Home Medication List Reviewed: Yes (AYLEEN ROJAS MD) Review of Systems Review of Systems Constitutional: No chills, No fever EENTM: No blurred vision, No vision loss, No throat pain Respiratory: No cough; short of breath (intermittently) Cardiovascular: chest pain (Chest discomfort), palpitations; No syncope Gastrointestinal: No abdominal pain, No constipation, No diarrhea, No nausea, No vomiting Genitourinary: No dysuria, No hematuria Musculoskeletal: No back pain, No joint pain; muscle weakness (Left arm) Skin: no symptoms reported Psychiatric/Neurological: Anxiety, Tingling (Left neck, left arm), Weakness (Left arm) Hematologic/Lymphatic: No Symptoms Reported Immunological/Allergic: no symptoms reported (ZAYRA RUSSO) All Other Systems Reviewed Negative Unless Noted: Yes (AYLEEN ROJAS MD) Past Kxsceda-Svssoa-Vlolsk Hx Past Med/Social Hx: Reviewed Nursing Past Med/Soc Hx (AYLEEN ROJAS MD) Patient Social History Alcohol Use: Denies Use Recent Infectious Disease Expo: No Recent Hopitalizations: No (ZAYRA RUSSO) Immunizations Up To Date Tetanus Booster (TDap): Less than 5yrs (ZAYRA RUSSO) Seasonal Allergies Seasonal Allergies: No (ZAYRA RUSSO) Past Medical History Surgeries: Yes (SINUS SURGERY; RIGHT GREAT TOE FX/SURGERY; URETHRAL DILATION, BILAT BREAST ) Bladder Surgery, Breast (Bilateral breast reduction), Orthopedic Respiratory: No Cardiac: No Neurological: Yes (TOURETTE'S ) Reproductive Disorders: No Female Reproductive Disorders: Denies Sexually Transmitted Disease: No HIV/AIDS: No Genitourinary: No Gastrointestinal: Yes Gastroesophageal Reflux Musculoskeletal: Yes (RIGHT GREAT TOE FX/SURGERY) Fractures Endocrine: Yes Pituitary Disease HEENT: No Cancer: No Psychosocial: Yes (TOURETTE'S) ADD/ADHD, Anxiety, Personality Disorder, Depression Integumentary: No Blood Disorders: No Adverse Reaction/Blood Tranf: No (ZAYRA RUSSO) Family Medical History Reviewed Nursing Family Hx (AYLEEN ROJAS MD) Hypertension 19 MOTHER No Pertinent Family Hx (ZAYRA RUSSO) Physical Exam Vital Signs Vital Signs - First Documented 03/18/20 23:55 Temp 36.7 Pulse 93 Resp 18 B/P (MAP) 120/85 (97) Pulse Ox 98 (AYLEEN ROJAS MD) Vital Signs Capillary Refill : Less Than 3 Seconds (ZAYRA RUSSO) Height, Weight, BMI Height: 5'5.00" Weight: 194lbs. 2.0oz. 88.471139sf; 31.00 BMI Method:Stated General Appearance: WD/WN, Anxious HEENT: PERRL/EOMI; No Scleral Icterus (L), No Scleral Icterus (R) Neck: Full Range of Motion, Supple, Tender Lateral (Mild left neck) Respiratory: Chest Non Tender, Lungs Clear, Normal Breath Sounds, No Accessory Muscle Use, No Respiratory Distress Cardiovascular: Regular Rate, Rhythm, No Edema, No Murmur, Normal Peripheral Pulses Gastrointestinal: Normal Bowel Sounds, Non Tender, Soft Rectal: Deferred Back: Normal Inspection, No CVA Tenderness, No Vertebral Tenderness Extremity: Normal Capillary Refill, Normal Inspection, Normal Range of Motion, Non Tender, No Calf Tenderness, No Pedal Edema Neurologic/Psychiatric: Alert, Oriented x3, No Motor/Sensory Deficits, Other (Anxious, rapid speech) Skin: Normal Color, Warm/Dry (ZAYRA RUSSO) HEENT: PERRL/EOMI, Pharynx Normal Respiratory: Lungs Clear, Normal Breath Sounds Cardiovascular: Regular Rate, Rhythm, No Murmur Neurologic/Psychiatric: Alert, Oriented x3, No Motor/Sensory Deficits Skin: Normal Color, Warm/Dry (AYLEEN ROJAS MD) Procedures/Interventions Suture Size: 4[facility]0 [facility] Progress/Results/Core Measures Suspected Sepsis Recent Fever Within 48 Hours: No Infection Criteria Present: None New/Unexplained Altered Menta: No Sepsis Screen: No Definite Risk SIRS Temperature: Pulse: 93 Respiratory Rate: 18 Laboratory Tests 03/19/20 00:38: Blood Pressure 120 /85 Mean: 97 Laboratory Tests 03/19/20 00:38: (ZAYRA RUSSO) Results/Orders Lab Results Laboratory Tests Test 03/19/20 00:38 03/19/20 01:25 Range/Units White Blood Count 10.2 4.3-11.0 10^3/uL Red Blood Count 4.58 3.80-5.11 10^6/uL Hemoglobin 13.3 11.5-16.0 g/dL Hematocrit 40 35-52 % Mean Corpuscular Volume 87 80-99 fL Mean Corpuscular Hemoglobin 29 25-34 pg Mean Corpuscular Hemoglobin Concent 33 32-36 g/dL Red Cell Distribution Width 12.7 10.0-14.5 % Platelet Count 248 130-400 10^3/uL Mean Platelet Volume 11.5 9.0-12.2 fL Immature Granulocyte % (Auto) 1 % Neutrophils (%) (Auto) 58 42-75 % Lymphocytes (%) (Auto) 30 12-44 % Monocytes (%) (Auto) 9 0-12 % Eosinophils (%) (Auto) 2 0-10 % Basophils (%) (Auto) 0 0-10 % Neutrophils # (Auto) 6.0 1.8-7.8 10^3/uL Lymphocytes # (Auto) 3.0 1.0-4.0 10^3/uL Monocytes # (Auto) 1.0 0.0-1.0 10^3/uL Eosinophils # (Auto) 0.2 0.0-0.3 10^3/uL Basophils # (Auto) 0.0 0.0-0.1 10^3/uL Immature Granulocyte # (Auto) 0.1 0.0-0.1 10^3/uL Sodium Level 138 135-145 MMOL/L Potassium Level 3.7 3.6-5.0 MMOL/L Chloride Level 104 98-107 MMOL/L Carbon Dioxide Level 24 21-32 MMOL/L Anion Gap 10 5-14 MMOL/L Blood Urea Nitrogen 13 7-18 MG/DL Creatinine 0.89 0.60-1.30 MG/DL Estimat Glomerular Filtration Rate > 60 BUN/Creatinine Ratio 15 Glucose Level 92 70-105 MG/DL Calcium Level 8.8 8.5-10.1 MG/DL Corrected Calcium 8.7 8.5-10.1 MG/DL Total Bilirubin 0.3 0.1-1.0 MG/DL Aspartate Amino Transf (AST/SGOT) 16 5-34 U/L Alanine Aminotransferase (ALT/SGPT) 18 0-55 U/L Alkaline Phosphatase 83 40-136 U/L Total Protein 7.4 6.4-8.2 GM/DL Albumin 4.1 3.2-4.5 GM/DL TSH [place] Testing 1.52 0.35-4.94 UIU/ML Urine Color YELLOW Urine Clarity SL CLOUDY Urine pH 6.0 5-9 Urine Specific Brent 1.015 L 1.016-1.022 Urine Protein NEGATIVE NEGATIVE Urine Glucose (UA) NEGATIVE NEGATIVE Urine Ketones TRACE H NEGATIVE Urine Nitrite NEGATIVE NEGATIVE Urine Bilirubin NEGATIVE NEGATIVE Urine Urobilinogen 0.2 < = 1.0 MG/DL Urine Leukocyte Esterase NEGATIVE NEGATIVE Urine RBC (Auto) NEGATIVE NEGATIVE Urine RBC NONE /HPF Urine WBC 2-5 /HPF Urine Squamous Epithelial Cells 5-10 /HPF Urine Crystals NONE /LPF Urine Bacteria NEGATIVE /HPF Urine Casts NONE /LPF Urine Mucus NEGATIVE /LPF Urine Culture Indicated NO (AYLEEN ROJAS MD) My Orders Orders - AYLEEN ROJAS MD Cbc With Automated Diff (03/19/20 00:32) Comprehensive Metabolic Panel (03/19/20 00:32) Thyroid Analyzer (03/19/20 00:32) Ua Culture If Indicated (03/19/20 00:32) Ed Iv/Invasive Line Start (03/19/20 00:32) (AYLEEN ROJAS MD) Vital Signs/I&O 03/18/20 23:55 Temp 36.7 Pulse 93 Resp 18 B/P (MAP) 120/85 (97) Pulse Ox 98 (AYLEEN ROJAS MD) Vital Signs/I&O Capillary Refill : Less Than 3 Seconds (ZAYRA RUSSO GERONIMO COLE) Blood Pressure Mean: 97 Progress Note : Progress Note I have seen and evaluated the patient and agree with above except as indicated. I have directed the plan of care. Patient is here with report of panic attack at home and numbness in her arms. She is quite worried about her medical health. She has recently had multiple med changes including stopping Abilify and she is supposed to start Zoloft. She has not started that yet. She lives in [place] but is here visiting her mother. She is moving down here now though. She is calling with verbal maneuvers. We will check labs. She did have MRI in [place] in December and we will get a copy of that regarding the empty sella findings noted on CT scan here. She is to follow-up with chairperson anesthesiology at some point related to that. Monitor patient. 0205: MRI results from [facility] show low-grade nonspecific findings of the sella. These may or may not be of any clinical significance. They could be incidental. No definite pituitary microadenoma or macroadenoma. I did discuss this MRI result with the patient. Overall she is doing much better and much more calm currently. We have instructed her to follow-up regarding mental health as well as medical health. Patient states that she will. She is currently undergoing evaluation for possible sleep apnea and she will talk with her primary in [place] about that. She was given information and resources for local mental health including [facility] and community health services. Discharged home with return precautions. Patient verbalized understanding of instructions and agreement with plan. O2 saturations 99 to 100% on room air. Heart rate in the 80s now and normal blood pressure. Overall much improved at time of discharge. (AYLEEN ROJAS MD) Departure Impression Primary Impression: Panic attack Additional Impression: Hyperventilation syndrome Disposition: 01 HOME, SELF-CARE Condition: Improved Departure-Patient Inst. Decision time for Depature: 02:12 (AYLEEN ROJAS MD) Referrals: WESTLEY LOZADA PATRICIA L ARNP, DNP (PCP) Primary Care Physician [facility] Patient Instructions: Panic Disorder (DC), Hyperventilation Add. Discharge Instructions: All discharge instructions reviewed with patient and/or family. Voiced understanding. Is very important that you follow-up for recheck and further evaluation and to discuss this episode. You should also continue evaluation for sleep apnea. It is important that you follow-up with counselor of your choosing. If you are moving to this area, [facility] and [facility] services both offer counseling support. If you are ever in crisis, you may call [phone]. This will contact you to a crisis consultants. You may also return to the emergency department. You should start your Zoloft and take it as prescribed. Return for chest pain, breathing problems, weakness, vision or balance problems or other concerns as needed. ZAYRA RUSSO Mar 19, 2020 00:55 AYLEEN ROJAS MD Mar 19, 2020 02:11
[2020-03-19 00:57] LABS: BASOPHILS % (AUTO) 0 % (0-10); EOSINOPHILS # (AUTO) 0.2 10^3/uL (0.0-0.3); EOSINOPHILS % (AUTO) 2 % (0-10); HEMATOCRIT 40 % (35-52); HEMOGLOBIN 13.3 g/dL (11.5-16.0); LYMPHOCYTES % (AUTO) 30 % (12-44); MEAN CORPUSCULAR HEMOGLOBIN 29 pg (25-34); MEAN CORPUSCULAR HGB CONC 33 g/dL (32-36); MEAN CORPUSCULAR VOLUME 87 fL (80-99); MEAN PLATELET VOLUME 11.5 fL (9.0-12.2); MONOCYTES % (AUTO) 9 % (0-12); NEUTROPHILS % (AUTO) 58 % (42-75); PLATELET COUNT 248 10^3/uL (130-400); WHITE BLOOD COUNT 10.2 10^3/uL (4.3-11.0)
[2020-03-19 01:02] LABS: ALBUMIN 4.1 GM/DL (3.2-4.5); CHLORIDE 104 MMOL/L (98-107); POTASSIUM 3.7 MMOL/L (3.6-5.0); SODIUM 138 MMOL/L (135-145)
[2020-03-19 01:03] LABS: CALCIUM 8.8 MG/DL (8.5-10.1)
[2020-03-19 01:04] LABS: GLUCOSE 92 MG/DL (70-105); TOTAL PROTEIN 7.4 GM/DL (6.4-8.2)
[2020-03-19 01:05] LABS: CARBON DIOXIDE 24 MMOL/L (21-32)
[2020-03-19 01:06] LABS: BILIRUBIN,TOTAL 0.3 MG/DL (0.1-1.0)
[2020-03-19 01:08] LABS: ALKALINE PHOSPHATASE 83 U/L (40-136); CREATININE SERUM 0.89 MG/DL (0.60-1.30); GFR ESTIMATED > 60
[2020-03-19 01:09] LABS: BUN/CREATININE RATIO 15
[2020-03-19 01:11] LABS: ALANINE AMINOTRANSFERASE 18 U/L (0-55)
[2020-03-19 01:30] LABS: TSH (THYROID ANALYZER) 1.52 UIU/ML (0.35-4.94)
[2020-03-19 01:32] LABS: BILIRUBIN,URINE NEGATIVE (NEGATIVE); CLARITY,URINE SL CLOUDY; COLOR,URINE YELLOW; GLUCOSE, URINE (UA) NEGATIVE (NEGATIVE); KETONES,URINE TRACE (NEGATIVE); LEUKOCYTE ESTERASE ,URINE NEGATIVE (NEGATIVE); NITRITE,URINE NEGATIVE (NEGATIVE); PROTEIN,URINE NEGATIVE (NEGATIVE)
[2020-03-19 01:54] LABS: BACTERIA,URINE NEGATIVE /HPF
[2020-03-19 02:30] VITALS: BP 109/72
== END 2020-03-19 02:30 | disposition home or self-care (01) ==
LOC: EDUNIT# 23:53 → ER 23:55
DX: F41.0 Panic disorder [episodic paroxysmal anxiety] (principal); F45.8 Other somatoform disorders; F41.9 Anxiety disorder, unspecified; K21.9 Gastro-esophageal reflux disease without esophagitis; Z88.1 Allergy status to other antibiotic agents; Z82.49 Family history of ischemic heart disease and other diseases of the circulatory system
CPT/HCPCS: 36415; 80053; 81000; 84443; 84703; 85025

== ENCOUNTER → 2020-03-26 | Outpatient (CLI) | payer OTHER, MEDICAID | LOC: CARD 13:54 | PROVIDERS: ATTEND Nurse Practitioner Family | DX: I47.1 Supraventricular tachycardia (principal) | CPT/HCPCS: 93306 ==

== ENCOUNTER 2021-07-23 02:37 | Emergency (ER) | payer OTHER, MEDICAID ==
[~2021-07-23] VITALS: Ht 165 cm; Wt 100.0 kg
[~2021-07-23 02:37] MED LIST changes: +OMEP20TA56 PO; -OMEP20TA7 PO
[2021-07-23 02:45] VITALS: BP 138/88
--- NOTE | 2021-07-23 03:09 | ED Upper Extremity ---
General Chief Complaint: Upper Extremity Stated Complaint: RT SHOULDER PAIN Nursing Triage Note: Pt arrives per POV after fall at home. Pt was cleaning and tripped over storage chest. States "heard a snap" and felt pain. Pt w/ limited movement of RUE. Pulses present. Source: patient Exam Limitations: no limitations History of Present Illness Date Seen by Provider: July 23, 2021 Time Seen by Provider: 02:55 Initial Comments Patient is a 35-year-old female who presents to the emergency department today with a chief complaint of right shoulder and upper arm pain. Patient states she was cleaning her children's room at 2:00 this morning, she tripped and fell on a large bag of Barbies. She states her arm went backwards and her elbow was going "the wrong direction". She states she felt and heard a loud "snap". She states she cannot really move her right upper extremity at all. No other complaints of injury or recent illness. Last menstrual period was 1 month ago, she is on control. Did not hit her head no loss of consciousness. Did not take any medications. All other review of systems reviewed and negative except as stated. Onset: just prior to arrival Severity: moderate Pain/Injury Location: right shoulder, right arm, right elbow Method of Injury: fell Modifying Factors: Improves With Immobilization; Worse With Movement Allergies and Home Medications Allergies Coded Allergies: cefotaxime (Verified Allergy, Unknown, 03/19/20) Patient Home Medication List Home Medication List Reviewed: Yes Acetaminophen (Tylenol Extra Strength) 500 Mg Tablet, 500-1,000 MG PO Q6H PRN for PAIN-MILD, (Reported) Entered as Reported by: ALVIN PIERSON on 02/18/17 1543 Albuterol Sulfate (Proair Hfa) 1 Puff Puff, 2 PUFF INH Q6H Prescribed by: MARJ VERDUZCO on 02/19/17 1233 Calcium Carbonate (Tums) 300 Mg Tab.chew, 300 MG PO QID PRN for INDIGESTION, (Reported) Entered as Reported by: ALVIN PIERSON on 02/18/17 1543 Docusate Sodium (Docusate Sodium) 100 Mg Capsule, 100 MG PO BID PRN for CONSTIPATION-1ST LINE Prescribed by: LIA PONCE on 04/17/17 0721 Hydrocodone Bit/Acetaminophen (Lortab 5 Mg Tablet) 1 Tab Tab, 1-2 TAB PO Q4H PRN for PAIN-MODERATE Prescribed by: LIA PONCE on 04/17/17 0721 Ibuprofen (Ibuprofen) 600 Mg Tablet, 600 MG PO Q6H Prescribed by: LIA PONCE on 04/17/17 0721 Omeprazole (Omeprazole) 20 Mg Tablet.dr, 20 MG PO DAILY, (Reported) Entered as Reported by: MARJ VERDUZCO on 02/19/17 1232 Promethazine HCl (Promethazine Tablet) 25 Mg Tablet, 25 MG PO Q6H PRN for NAUSEA/VOMITING Prescribed by: MARJ VERDUZCO on 02/19/17 1233 Vit B Cmplx 3/FA/Vit C/Biotin (Vol-Care Rx Tablet) 1 Each Tablet, 1 TAB PO DAILY, (Reported) Entered as Reported by: ALVIN PIERSON on 02/18/17 1543 Review of Systems Constitutional: see HPI Respiratory: no symptoms reported Cardiovascular: no symptoms reported Gastrointestinal: no symptoms reported Genitourinary: no symptoms reported LMP: Jun 25, 2021 Control/STD Prophylaxis: BC Pills Musculoskeletal: joint pain (right shoulder and upper arm pain) Skin: no symptoms reported Psychiatric/Neurological: Anxiety All Other Systems Reviewed Negative Unless Noted: Yes Past Krjvuan-Uukfvx-Pigpgw Hx Patient Social History Tobacco Use?: No Use of E-Cig and/or Vaping dev: No Substance use?: No Alcohol Use?: No Immunizations Up To Date Tetanus Booster (TDap): Less than 5yrs Seasonal Allergies Seasonal Allergies: No Past Medical History Surgeries: Yes (SINUS SURGERY; RIGHT GREAT TOE FX/SURGERY; URETHRAL DILATION, BILAT BREAST ) Bladder Surgery, Breast, Orthopedic Respiratory: No Cardiac: No Neurological: Yes (TOURETTE'S ) Reproductive Disorders: No Female Reproductive Disorders: Denies Sexually Transmitted Disease: No HIV/AIDS: No Genitourinary: No Gastrointestinal: Yes Gastroesophageal Reflux Musculoskeletal: Yes (RIGHT GREAT TOE FX/SURGERY) Fractures Endocrine: Yes Pituitary Disease HEENT: No Cancer: No Psychosocial: Yes (TOURETTE'S) ADD/ADHD, Anxiety, Personality Disorder, Depression Integumentary: No Blood Disorders: No Adverse Reaction/Blood Tranf: No Family Medical History Hypertension 19 MOTHER No Pertinent Family Hx Physical Exam Vital Signs Vital Signs - First Documented 07/23/21 02:45 Temp 36.9 Pulse 94 Resp 20 B/P (MAP) 138/88 (105) Pulse Ox 99 O2 Delivery Room Air Capillary Refill : Less Than 3 Seconds Height, Weight, BMI Height: 5'5.00" Weight: 194lbs. 2.0oz. [id number]; 36.00 BMI Method:Stated General Appearance: WD/WN, no apparent distress HEENT: PERRL/EOMI Neck: non-tender, full range of motion Cardiovascular: regular rate, rhythm Respiratory: no respiratory distress, no accessory muscle use Shoulder: normal inspection, limited ROM, pain, soft tissue tenderness (in right upper arm) Elbow/Forearm: normal inspection, limited ROM, pain Wrist: Yes normal inspection, Yes non-tender, Yes no evidence of injury, Yes normal ROM Hand: normal inspection, non-tender, no evidence of injury, normal ROM, Right Neurologic/Psychiatric: alert, normal mood/affect, oriented x 3 Skin: normal color, warm/dry Procedures/Interventions Suture Size: 4-0 Progress/Results/Core Measures Results/Orders My Orders Orders - TABATHA HO MD Shoulder, Right, 3 Views (07/23/21 03:09) Humerus, Right, 2 Views (07/23/21 03:09) Vital Signs/I&O 07/23/21 02:45 Temp 36.9 Pulse 94 Resp 20 B/P (MAP) 138/88 (105) Pulse Ox 99 O2 Delivery Room Air Blood Pressure Mean: 105 Departure Impression Primary Impression: Sprain of right upper arm Qualified Codes: S53.401A - Unspecified sprain of right elbow, initial encounter Disposition: 01 HOME, SELF-CARE Condition: Stable Departure-Patient Inst. Decision time for Depature: 03:53 Referrals: DEJON RAY DNP (PCP/Family) Primary Care Physician Patient Instructions: Sprain (DC) Add. Discharge Instructions: You can take [id number] ibuprofen, 600 mg which is 3 tablets every 6 hours with food as needed for pain. Ice packs may help on the sore portions of your arm. Do not keep that arm in the sling, you need to be using it. Follow-up with your primary care provider for any worsening symptoms. Return to the emergency department for any new, emergent or concerning symptoms. TABATHA HO MD July 23, 2021 03:09
--- NOTE | 2021-07-23 06:29 | Diagnostic Imaging Report ---
INDICATION: Fall with right shoulder pain. FINDINGS: 3 views. Glenohumeral joints in good alignment as is the AC joint. Articulating surfaces are smooth. There are no fractures. IMPRESSION: Normal right shoulder. Dictated by: Dictated on workstation # [id number]
--- NOTE | 2021-07-23 06:35 | Diagnostic Imaging Report ---
INDICATION: Fall with right arm and shoulder pain. FINDINGS: 2 views. The right humerus shows no fractures or dislocations. IMPRESSION: Normal right humerus. Dictated by: Dictated on workstation # [id number]
== END 2021-07-23 04:05 | disposition home or self-care (01) ==
LOC: EDUNIT# 02:37 → ER 02:44
DX: S53.401A Unspecified sprain of right elbow, initial encounter (principal); M25.511 Pain in right shoulder; W01.198A Fall on same level from slipping, tripping and stumbling with subsequent striking against other object, initial encounter; Y92.009 Unspecified place in unspecified non-institutional (private) residence as the place of occurrence of the external cause; Y93.E5 Activity, floor mopping and cleaning
CPT/HCPCS: 73030; 73060

== ENCOUNTER → 2021-09-24 | Outpatient (CLI) | payer OTHER, MEDICAID ==
--- NOTE | 2021-09-25 13:23 | Diagnostic Imaging Report ---
EXAMINATION: 3D bilateral screening mammogram with CAD. INDICATION: Screening. COMPARISON: This is the patient's baseline study. At this time, there are no current complaints. FINDINGS: The fibroglandular tissue in both breasts is heterogeneously dense which does limit the sensitivity of this exam. In the 2 o'clock position of the right breast at middle depth, there is a fairly well-circumscribed 2 x 2 cm soft tissue mass. I suspect that this is a benign process. Even so, I would recommend ultrasound of the right breast be performed to better characterize this finding. There is no primary or secondary sign of malignancy identified otherwise. IMPRESSION: Ultrasound of the right breast would recommended for further evaluation. ACR BI-RADS Category 0: Incomplete. (Needs additional imaging evaluation). Result letter will be mailed to the patient. Note: At least 10% of breast cancer is not imaged by mammography. Dictated by: Dictated on workstation # [id number]
== END ==
LOC: RAD 15:28
PROVIDERS: ATTEND Obstetrics & Gynecology
DX: Z12.31 Encounter for screening mammogram for malignant neoplasm of breast (principal)
CPT/HCPCS: 77063; 77067

== ENCOUNTER → 2021-10-02 | Outpatient (CLI) | payer OTHER, MEDICAID ==
--- NOTE | 2021-10-02 12:14 | Diagnostic Imaging Report ---
INDICATION: Abnormal mammogram demonstrating a right breast density. Study is performed for further evaluation. Correlation is made with prior mammogram from 09/24/2021. Sonographic interrogation of the upper inner right breast demonstrates a septated cystic mass versus a cluster of multiple cysts, in aggregate measuring 2.1 x 1.5 x 2.0 cm. This is located at the 2:00 location, 1 to 2 cm from the nipple. This does correspond in size and location to the mammographic density. No internal vascularity is present. No other masses are identified. IMPRESSION: BI-RADS Category 3 Cluster of cysts versus a single multiseptated cyst 2:00 location right breast, 1 to 2 cm from the nipple. This does correspond to the density noted mammographically. This has fairly benign features. Even so, follow-up right breast ultrasound in 6 months is recommended to show continued stability. ACR BI-RADS Category 3: Probably benign findings. Dictated by: Dictated on workstation # [id number]
== END ==
LOC: RAD 10:33
PROVIDERS: ATTEND Obstetrics & Gynecology
DX: N60.01 Solitary cyst of right breast (principal)
CPT/HCPCS: 76641